=== PATIENT | male | born 1985 | race Two or more races ===

== ENCOUNTER 2021-12-31 15:00 | Outpatient (REF) | payer MEDICAID, SELFPAY ==
--- NOTE | ~2021-12-31 | US_ITS ---
EXAMINATION: US ABDOMEN LIMITED CLINICAL INFORMATION: Abnormal findings of blood chemistry. COMPARISON: None TECHNIQUE: Real-time imaging of the right upper quadrant abdominal viscera. FINDINGS: PANCREAS: There is a hypoechoic avascular area of the tail which measures 3.7 x 3.0 x 3.6 cm. Question mass versus bowel loops. LIVER: Normal. The liver is normal in size. The liver contour is normal. Parenchymal echogenicity is normal. No focal hepatic lesion. There is no intrahepatic biliary duct dilatation seen. GALLBLADDER: Gallbladder wall thickness is 0.2 cm. The gallbladder is physiologically distended without evidence of stones, sludge, polyps, wall thickening or pericholecystic fluid. COMMON BILE DUCT: Normal in caliber measuring 0.3 cm in diameter. RIGHT KIDNEY: There is mild pelvic fullness. No renal calculi or focal parenchymal lesions. The kidney measures 9.6 cm in maximum dimension. FREE FLUID: None US/US abdomen limited IMPRESSION: In the tail of the pancreas there is hypoechoic area either mass or loop of bowel. Visualized liver, gallbladder and CBD is unremarkable. There is mild pelvic fullness.
== END 2021-12-31 15:01 | disposition home or self-care (01) ==
LOC: HO.US 15:00
PROVIDERS: Visit Provider Internal Medicine
DX: R79.89 Other specified abnormal findings of blood chemistry (principal)
CPT/HCPCS: 76705

== ENCOUNTER 2022-01-11 08:45 | Emergency (ER) | payer MEDICAID, SELFPAY ==
[2022-01-11 08:50] VITALS: BP 103/70; PULSE 120; RESP 18; TEMP 37.3; O2SAT 100; BMI 21.7
[2022-01-11 09:06] LABS: Glucose, Whole Blood 242 mg/dL (60-115)
--- NOTE | 2022-01-11 09:23 | ED.SKABFB ---
HPI - Skin/Abscess/Foreign Bdy General Chief complaint: Skin/Abscess/Foreign Body Stated complaint: lump buy right ear Time Seen by Provider: 01/11/22 09:13 Source: patient Mode of arrival: ambulatory History of Present Illness HPI narrative: 36-year-old male with a past medical history of diabetes, substance abuse, presenting to the ED complaining of painful cyst behind right ear x1 week. Admits to associated right ear pain. Denies fever, chills, drainage from area, sore throat, oral swelling, difficulty swallowing, SOB, drainage behind right ear MD complaint: abscess/boil Onset (ago): week(s) Severity: moderate Related Data Previous Rx's Medication Instructions Recorded cephalexin 500 mg capsule 500 mg PO QID 7 Days #28 cap 01/11/22 doxycycline hyclate 100 mg tablet 100 mg PO BID 7 Days #14 tab 01/11/22 Allergies Allergy/AdvReac Type Severity Reaction Status Date / Time No Known Allergies Allergy Verified 01/11/22 08:50 Review of Systems Review of Systems: Constitutional: No Fever, No Chills ENT/Mouth: + Ear Pain, No Nasal Congestion, No sore throat, No Rhinorrhea, No Swallowing Difficulty Cardiovascular: No Chest Pain, No SOB Respiratory: No Cough, No Sputum Gastrointestinal: No Nausea, No Vomiting, No Diarrhea, No Constipation, No Abdominal pain Genitourinary:, No Dysuria, No Urinary Frequency, No Urgency, No Flank Pain Musculoskeletal: No joint pain, No Myalgias, No Joint Swelling Skin: + Skin Lesions, No rash Neuro: No Weakness, No Numbness Yes all other systems are reviewed and are negative [facility] Past Medical History Attestation statement: The following information was validated with the patient. Medical History Diabetes Substance abuse Social History Social History Advance Directives: No Physical Exam Vital Signs: Vital Signs: Last Vital Signs Temp 99.1 F 01/11/22 08:50 Pulse 120 H 01/11/22 08:50 Resp 18 01/11/22 08:50 BP 103/70 01/11/22 08:50 Pulse Ox 100 01/11/22 08:50 BMI result Body Mass Index 21.7 Const: General: cooperative, healthy appearing and no acute distress Orientation/consciousness: patient oriented x3 Limitations: no limitations HENMT: Other: +Hard indurated cyst behind right ear. No fluctuance, no pointing, no drainage. Slight overlying erythema and warmth. No streaking Head: Yes normal to inspection Ears: hearing grossly normal bilaterally and TM's normal bilaterally General nose exam: Normal external nose present Face and sinus: Yes normal facial exam Mouth: Normal oral and palatal mucosa present Throat: Yes posterior oropharynx normal, Yes tonsils normal, Yes uvula midline, No peritonsillar mass and No uvular edema Eyes: General: appearance normal, both eyes and all related structures EOM: EOMs intact bilaterally Neck: Neck: Yes normal visual inspection, Yes no meningeal signs, Yes trachea midline and Yes supple Resp: Effort & Inspection: normal respiratory effort and no respiratory distress Cardio: Rate: regular rate and tachycardic Heart sounds: S1 normal heart sound present and S2 normal heart sound present Skin: Rashes: no rashes Wounds: no wounds Neuro: General: patient oriented x3 and no meningeal signs Gait exam (Neuro): Normal gait present Extrem: General: Yes normal to inspection Course Course Course Narrative: POC 242 MDM - Skin/Abscess/Foreign Bdy MDM Narrative Medical decision making narrative: 36-year-old male with a past medical history of diabetes, substance abuse, presenting to the ED complaining of painful cyst behind right ear x1 week. On exam initially tachycardic low-grade temp 99.1 degrees, hard indurated cyst behind right ear without fluctuance, mild overlying erythema and warmth. Concern for indurated abscess with overlying cellulitis. Area not drainable at this time. Had lengthy discussion with patient to apply warm compresses 2-3x a day, take antibiotics and return for re-evaluation in 2-3 days, and hopefully at that time can perform I&D Differential Diagnosis Differential diagnosis: Likely abscess of skin or subcutaneous tissue and cellulitis Medical Records Attestation: I reviewed the patient's medical records. Lab Data Attestation: I reviewed the patient's lab results. Labs: Lab Results 01/11/22 Range/Units 09:00 POC Glucose 242 H (60-115) mg/dL Discharge Plan Discharge Clinical Impression: Boil Patient Disposition: Home, Self-Care Instructions: Abscess (ED), Abscess Follow-up (ED) Additional Instructions: your cyst is very hard today but likely will need to be drained in a couple days, APPLY WARM COMPRESSES AT HOME KEFLEX AND DOXYCYCLINE ARE ANTIBIOTICS PLEASE TAKE PRESCRIBED Take Tylenol and Motrin for pain and swelling Do not pick at the area or poke the area you should be re-evaluated in 2-3 days If area turns red, starts to drain, turns to a issa, or grows please return to the ED sooner Prescriptions: New cephalexin 500 mg capsule 500 mg PO QID 7 Days Qty: 28 0RF doxycycline hyclate 100 mg tablet 100 mg PO BID 7 Days Qty: 14 0RF Referrals: Physician,Unknown J [Primary Care Provider] - 3 days (For re-evaluation)
[2022-01-11 09:30] VITALS: PULSE 104; RESP 16; O2SAT 100
== END 2022-01-11 09:38 | disposition home or self-care (01) ==
PROVIDERS: Emergency Provider Emergency Medicine
DX: Q18.1 Preauricular sinus and cyst (principal); L02.02 Furuncle of face; E11.9 Type 2 diabetes mellitus without complications; Z79.899 Other long term (current) drug therapy
CPT/HCPCS: 82947; 99284

== ENCOUNTER 2022-01-11 20:20 | Emergency (ER) | payer MEDICAID, SELFPAY ==
[2022-01-11 20:30] VITALS: BP 124/91; BP 140/76; PULSE 114; PULSE 124; RESP 20; TEMP 37.1; O2SAT 100; O2SAT 97; BMI 21.6
--- NOTE | 2022-01-11 21:11 | ED_ITS ---
HPI - Skin/Abscess/Foreign Bdy General Chief complaint: Skin/Abscess/Foreign Body Stated complaint: abscess in ear Time Seen by Provider: 01/11/22 20:53 History of Present Illness HPI narrative: Patient is a 36 old male presents to the emergency department earlier today. Patient had an abscess to the right neck just inferior to the ear. Patient claims he was unable to obtain his antibiotic. There is no fever no chills. Complaining of worsening pain. Patient from home. Lives in a retirement. No fever no chills no systemic complaints Related Data Previous Rx's Medication Instructions Recorded cephalexin 500 mg capsule 500 mg PO QID 7 Days #28 cap 01/11/22 doxycycline hyclate 100 mg tablet 100 mg PO BID 7 Days #14 tab 01/11/22 Allergies Allergy/AdvReac Type Severity Reaction Status Date / Time No Known Allergies Allergy Verified 01/11/22 08:50 Review of Systems Review of Systems: Positive neck pain No fever no chills No cough no congestion no upper respiratory symptoms Positive neck mass Yes all other systems are reviewed and are negative [facility] Past Medical History Attestation statement: The following information was validated with the patient. Medical History Diabetes Substance abuse Social History Social History Advance Directives: No Advance Directives Information Provided: No Physical Exam Vital Signs: Vital Signs: Last Vital Signs Temp 98.8 F 01/11/22 20:30 Pulse 124 H 01/11/22 20:30 Resp 20 01/11/22 20:30 BP 124/91 H 01/11/22 20:30 Pulse Ox 97 01/11/22 20:30 BMI result Body Mass Index 21.6 Appearance: Alert. Oriented X3. No acute distress. Eyes: Pupils equal, round and reactive to light. ENT: Pharynx normal. Positive fluctuant mass just inferior to the right ear. Proximally 5 cm x 2 cm in size. Not warm to touch. Trachea is midline posterior pharynx is normal there is no mass or tenderness Neck: Normal inspection. Neck supple. No lymph nodes noted. No crepitus CVS: Normal heart rate and rhythm. Pulses normal. Normal S1 and S2 Respiratory: No respiratory distress. Breath sounds normal. No Wheezing. No rales Abdomen: Soft and nontender. No rigidity. No distention. good BS x4 Skin: Skin warm and dry. Normal skin color. Normal skin turgor. Extremities: No lower extremity edema. Neurovascular intact to all extremities. No Lacerations. No Rash Neuro: Oriented X 3. No motor deficit. No sensory deficit. Moving all extermities. No slurred speech MDM - Skin/Abscess/Foreign Bdy MDM Narrative Medical decision making narrative: Positive abscess will go ahead and I and D. patient was prescribed Keflex and doxy earlier. Will have patient continue his medications. Another dose will be given here in the emergency department. Patient is currently in stable condition. Procedures Abscess I/D Site: neck Side (if applicable): right Local Anesthetic: lidocaine 1% Amount of anesthesia used (mL): 5 Technique: incised with blade Amount of fluid expressed (mL): 5 Sent for culture/gram staining?: Yes Irrigation: Yes Packing used?: iodoform Discharge Plan Discharge Clinical Impression: Boil Patient Disposition: Home, Self-Care Instructions: Abscess Follow-up (ED), Abscess Incision and Drainage (DC) Additional Instructions: Follow-up in 2 days for packing Prescriptions: No Action cephalexin 500 mg capsule 500 mg PO QID 7 Days Qty: 28 0RF doxycycline hyclate 100 mg tablet 100 mg PO BID 7 Days Qty: 14 0RF Referrals: [facility] [Primary Care Provider] - 2 days Camille Mott MD [Emergency Provider] - 2 days Print Language: Nauruan
[2022-01-11] MEDS: Lidocaine HCl 1 % MPF 5 ML VIAL SUBCUT (21:19)
[2022-01-11] MEDS: cephALEXin 500 MG CAPSULE PO (21:46)
[2022-01-11 21:52] LABS: Glucose, Whole Blood 272 mg/dL (60-115)
== END 2022-01-11 22:19 | disposition home or self-care (01) ==
LOC: HO.ED 21:24
PROVIDERS: Emergency Provider Emergency Medicine Emergency Medical Services
DX: L02.11 Cutaneous abscess of neck (principal); Z79.899 Other long term (current) drug therapy
CPT/HCPCS: 10060; 82947; 87071; 87077; 87186; 87205; 99283

== ENCOUNTER 2022-01-14 08:55 | Emergency (ER) | payer MEDICAID, SELFPAY ==
[2022-01-14 08:56] VITALS: BP 107/76; PULSE 108; RESP 18; TEMP 37; O2SAT 100; BMI 21.7
--- NOTE | 2022-01-14 09:04 | ED.SKABFB ---
HPI - Skin/Abscess/Foreign Bdy General Chief complaint: Skin/Abscess/Foreign Body Stated complaint: wound check Time Seen by Provider: 01/14/22 09:03 Source: patient Mode of arrival: ambulatory Limitations: no limitations History of Present Illness HPI narrative: 36 y/o male presents to the ER for wound check. He was seen here on 01/11 for an abscess on his right neck that was I&D'd and he was discharged with doxycycline and cephalexin. He states 2 days ago he removed the packing that was placed. He denies any further drainage from the area. He states there is 1 area still that is a little bit hard, but it is not red or hot. He is using warm compresses to the area. He denies any fever or chills. He has been compliant with his antibiotics. MD complaint: abscess/boil Location: neck Severity: mild Quality: aching Pain Consistency: intermittent Relieving factors: none Exacerbating factors: palpation Associated symptoms: denies other symptoms Treatments prior to arrival: bandages and antibiotic Related Data Previous Rx's Medication Instructions Recorded cephalexin 500 mg capsule 500 mg PO QID 7 Days #28 cap 01/11/22 doxycycline hyclate 100 mg tablet 100 mg PO BID 7 Days #14 tab 01/11/22 Allergies Allergy/AdvReac Type Severity Reaction Status Date / Time No Known Allergies Allergy Verified 01/11/22 08:50 Review of Systems Review of Systems: Constitutional: No Fever, No Chills ENT/Mouth: No sore throat, No Swallowing Difficulty Cardiovascular: No Chest Pain, No SOB Gastrointestinal: No Nausea, No Vomiting Musculoskeletal: , No Myalgias Skin: + Skin Lesions, No rash Neuro: No Weakness, No Dizziness, No Headache Heme/Lymph: No Lymphadenopathy PMFSH Past Medical History Medical History Diabetes Substance abuse Social History Social History Advance Directives: No Advance Directives Information Provided: No Physical Exam Vital Signs: Vital Signs: Last Vital Signs Temp 98.6 F 01/14/22 08:56 Pulse 108 H 01/14/22 08:56 Resp 18 01/14/22 08:56 BP 107/76 01/14/22 08:56 Pulse Ox 100 01/14/22 08:56 BMI result Body Mass Index 21.7 Appearance: Alert. Oriented X3. No acute distress. HEENT: right lateral neck with a 1 cm incision just below the ear. there is small area of induration superiorly without any purulence drainage able to be expressed from the area. No erythema or warmth. Normal range of motion of the neck. normal TMs bilaterally. No cervical lymphadenopathy. CVS: Normal heart rate and rhythm. Pulses normal. Respiratory: No respiratory distress. Skin: Skin warm and dry. Normal skin color. Normal skin turgor. No rashes. Extremities: atraumatic x4, normal inspection, normal ROM Neuro: Oriented X 3. Grossly normal, nonfocal Course Course Course Narrative: 6-year-old male presenting to the ER for wound check. He has an abscess to the right neck just below the ear. He took out the packing. Wound has closed. It seems to be healing appropriately. There is no fluctuance, erythema, warmth. Minimal tenderness and some induration on exam but overall appears to be healing appropriately. he has Keflex and doxycycline previously prescribed that he is taking. We discussed warning signs to return to the emergency room. He is stable for discharge home. Discharge Plan Discharge Clinical Impression: Abscess of skin or subcutaneous tissue Patient Disposition: Home, Self-Care Instructions: Abscess Follow-up (ED) Additional Instructions: Your abscess is healing appropriately. Continue to take all of your previously prescribed antibiotics until they are all gone. Continue to use warm compresses to the area several times per day. If you notice increased swelling, redness, warmth or pain come back to the ER for further evaluation. Prescriptions: No Action cephalexin 500 mg capsule 500 mg PO QID 7 Days Qty: 28 0RF doxycycline hyclate 100 mg tablet 100 mg PO BID 7 Days Qty: 14 0RF
== END 2022-01-14 09:29 | disposition home or self-care (01) ==
PROVIDERS: Emergency Provider Emergency Medicine
DX: L02.11 Cutaneous abscess of neck (principal); Z79.899 Other long term (current) drug therapy
CPT/HCPCS: 99283

== ENCOUNTER 2022-03-30 11:54 | Emergency (ER) | payer MEDICAID, SELFPAY ==
--- NOTE | 2022-03-30 | ECG_ITS ---
Test Reason : HIGH SUGAR Blood Pressure : / mmHG Vent. Rate : 119 BPM Atrial Rate : 119 BPM P-R Int : 118 ms QRS Dur : 080 ms QT Int : 304 ms P-R-T Axes : 070 075 051 degrees QTc Int : 427 ms Sinus tachycardia Nonspecific ST abnormality Abnormal ECG No previous ECGs available Referred By: Generic ED Physician Electronically Signed By:SUKHDEV MENDOZA MD
[2022-03-30 12:28] VITALS: BP 105/79; PULSE 128; RESP 18; TEMP 36.5; O2SAT 97; BMI 20.9
[2022-03-30 12:52] LABS: Glucose, Whole Blood 555 mg/dL (60-115)
[2022-03-30 13:01] LABS: MANUAL DIFF FLAG NO
[2022-03-30 13:04] LABS: Basophils Percent Auto 0.3 % (0-2); Hematocrit 36.2 % (42.0-52.0); Hemoglobin 12.2 g/dl (14.0-18.0); Imm Gran Abs Auto 0.02 X10*3/uL (0.00-0.03); Imm Gran Pct Auto 0.3 % (0.0-0.4); Lymphocytes Absolute Auto 1.5 X10*3/uL (1.2-4.9); Lymphocytes Percent Auto 23.2 % (20-40); Mean Corpuscular HGB Conc 33.7 g/dl (31.0-36.0); Mean Corpuscular Hemoglobin 26.9 pg (27.0-33.0); Mean Corpuscular Volume 79.7 fL (80.0-98.0); Mean Platelet Volume 9.8 fL (9.4-12.4); Monocytes Absolute Auto 0.3 X10*3/uL (0.1-1.2); Monocytes Percent Auto 4.7 % (2-11); Neutrophils Absolute Auto 4.7 x10*3/uL (2.0-8.3); Neutrophils Percent Auto 71.5 % (45-73); Platelet Count 267 X10*3/uL (160-400); Red Blood Count 4.54 X10*6/uL (4.60-5.80); Red Cell Distribution Width 12.9 % (11.0-16.0); White Blood Count 6.6 X10*3/uL (4.8-10.8)
[2022-03-30 13:14] LABS: Lactic Acid 1.6 mmol/L (0.5-2.0)
[2022-03-30 13:24] LABS: Anion Gap 16 (12-20); Blood Urea Nitrogen 21 mg/dL (9-16); Calcium 10.7 mg/dL (8.4-10.2); Carbon Dioxide 30 mmol/L (22-29); Chloride 88 mmol/L (96-108); Creatinine Clr Calc Pharmacy 52.1; Estimated Glomerular Filt Rate 48; Glucose Random 640 mg/dL (60-115); Potassium 4.6 mmol/L (3.3-5.1); Sodium 129 mmol/L (135-145)
--- NOTE | 2022-03-30 13:50 | ED_ITS ---
HPI - General Adult General Chief complaint: General Medical Stated complaint: High Blood Sugar ? Infection on Neck Time Seen by Provider: 03/30/22 13:41 Source: patient Mode of arrival: ambulatory Limitations: no limitations History of Present Illness MD complaint: elevated blood sugar Onset (ago): day(s) (2) Severity: moderate Pain Consistency: constant Relieving factors: none Exacerbating factors: eating Associated symptoms: malaise and other (high BS in 500s, peeing more, did drink a sugary juice prior to his and it caused some mild diarrhea that resolved, he also ran out of lantus 30 units 2 days ago) Treatments prior to arrival: other (metformin BID) Related Data Previous Rx's Medication Instructions Recorded cephalexin 500 mg capsule 500 mg PO QID 7 Days #28 cap 01/11/22 doxycycline hyclate 100 mg tablet 100 mg PO BID 7 Days #14 tab 01/11/22 insulin glargine 100 unit/mL (3 30 unit (0.3 mL) SUBCUT QAM #15 ml 03/30/22 mL) subcutaneous pen (Lantus Solostar U-100 Insulin) pen needle, diabetic 32 gauge x #50 ea 03/30/2232 (Pentips) Allergies Allergy/AdvReac Type Severity Reaction Status Date / Time No Known Allergies Allergy Verified 01/11/22 08:50 Review of Systems Review of Systems: Constitutional : No Weight loss, No Fever, No Chills, pos Fatigue, pos Malaise ENT/Mouth : No sore throat, No Rhinorrhea Eyes: No Eye Pain, No Swelling, No Redness Cardiovascular : No Chest Pain, No SOB, No Dyspnea on Exertion, No Orthopnea, No Edema, No Palpitations Respiratory : No Cough, No Sputum, No Wheezing Gastrointestinal : pos Nausea, No Vomiting, No Diarrhea, No Constipation, No abdominal Pain, No Hematochezia, No Melena Genitourinary : No Dysuria, No Urinary Frequency, No Hematuria, Musculoskeletal : No joint pain, No Myalgias, No Joint Swelling Skin : No Skin Lesions, No rash Neuro : No Weakness, No Numbness, No Dizziness, No Headache Psych : No Anxiety/Panic, No Depression Heme/Lymph: No Bruising, No Bleeding,No Lymphadenopathy Endocrine : pos Polyuria, pos Polydipsia All other systems reviewed and are negative [facility] Past Medical History Attestation statement: The following information was validated with the patient. Medical History Diabetes MRSA cellulitis Substance abuse Social History Social History (Updated 03/30/22 @ 13:50 by Liberty Hernandes DO) Patient Tobacco Use Status: Current someday Tobacco user Use of substances other than those prescribed or required for medical reasons: Yes Advance Directives: No Advance Directives Information Provided: No Physical Exam ED Vital Signs: Vital Signs - 24 hr 03/30/22 12:28 03/30/22 15:27 Temperature 97.7 F 98.4 F Pulse Rate 128 H 114 H Respiratory Rate 18 20 Blood Pressure 105/79 114/80 Pulse Oximetry 97 99 BMI result Body Mass Index 20.9 Appearance: Alert. Oriented X3. No acute distress. Eyes: Pupils equal, round and reactive to light. ENT: Pharynx mildly dry MM Neck: Normal inspection. Neck supple. CVS: Normal heart rate and rhythm. Pulses normal. Respiratory: No respiratory distress. Breath sounds normal. Abdomen: Soft and non-tender. Skin: Skin warm and dry. Normal skin color. Normal skin turgor. Extremities: No lower extremity edema. No calf ttp Neuro: Oriented X 3. No motor deficit. No sensory deficit. Course Course Course Narrative: plan to recheck Cr after 2L of IVF - Rx sent to [facility] pharmacy for patient signed out to Dr. Mott pending repeat blood sugar Cr 1.43 - will hydrat 2L still this was done before - can follow up with PCP Medical Decision Making MDM Narrative Medical decision making narrative: 36 yo male with hx of DM on metformin and lantus 30 units per day, ran out of insulin 2 days ago and drank some juice that caused diarrhea, mild DENNIS - will give 2L of IVF and IV insulin, suspect he will turn around no signs of DKA. Anticpate DC home with supportive care. Lab Data Result diagrams: 03/30/22 12:51 03/30/22 15:30 Labs: Lab Results 03/30/22 03/30/22 03/30/22 Range/Units 12:43 12:51 12:51 WBC 6.6 (4.8-10.8) X10*3/uL RBC 4.54 L (4.60-5.80) X10*6/uL Hgb 12.2 L (14.0-18.0) g/dl Hct 36.2 L (42.0-52.0) % MCV 79.7 L (80.0-98.0) fL MCH 26.9 L (27.0-33.0) pg MCHC 33.7 (31.0-36.0) g/dl RDW 12.9 (11.0-16.0) % Plt Count 267 (160-400) X10*3/uL MPV 9.8 (9.4-12.4) fL Immature Gran % (Auto) 0.3 (0.0-0.4) % Neut % (Auto) 71.5 (45-73) % Lymph % (Auto) 23.2 (20-40) % [place] % (Auto) 4.7 (2-11) % Eos % (Auto) 0.0 (0-4) % Baso % (Auto) 0.3 (0-2) % Lymph # (Auto) 1.5 (1.2-4.9) X10*3/uL [place] # (Auto) 0.3 (0.1-1.2) X10*3/uL Eos # (Auto) 0.0 (0.0-0.4) X10*3/uL Baso # (Auto) 0.0 (0.0-0.2) X10*3/uL Abs Immat Gran (auto) 0.02 (0.00-0.03) X10*3/uL Absolute Neuts (auto) 4.7 (2.0-8.3) x10*3/uL Absolute Nucleated RBC 0.000 (0.0-0.012) X10*3/uL Nucleated RBC % (auto) 0.0 (0.0-0.2) /100WBC VBG pH (7.32-7.43) VBG pCO2 mmHg VBG pO2 mmHg VBG HCO3 (22-26) mmol/L VBG O2 Saturation % VBG Base Excess mmol/L Sodium 129 L (135-145) mmol/L Potassium 4.6 (3.3-5.1) mmol/L Chloride 88 L (96-108) mmol/L Carbon Dioxide 30 H (22-29) mmol/L Anion Gap 16 (12-20) BUN 21 H (9-16) mg/dL Creatinine 1.65 H (0.5-1.4) mg/dL Estim Creat Clear Calc 52.1 Estimated GFR 48 POC Glucose 555 H* (60-115) mg/dL Random Glucose 640 H* (60-115) mg/dL Lactic Acid (0.5-2.0) mmol/L Calcium 10.7 H (8.4-10.2) mg/dL Acetone, Qual (Negative) 03/30/22 03/30/22 03/30/22 Range/Units 12:51 14:46 14:49 WBC (4.8-10.8) X10*3/uL RBC (4.60-5.80) X10*6/uL Hgb (14.0-18.0) g/dl Hct (42.0-52.0) % MCV (80.0-98.0) fL MCH (27.0-33.0) pg MCHC (31.0-36.0) g/dl RDW (11.0-16.0) % Plt Count (160-400) X10*3/uL MPV (9.4-12.4) fL Immature Gran % (Auto) (0.0-0.4) % Neut % (Auto) (45-73) % Lymph % (Auto) (20-40) % [place] % (Auto) (2-11) % Eos % (Auto) (0-4) % Baso % (Auto) (0-2) % Lymph # (Auto) (1.2-4.9) X10*3/uL [place] # (Auto) (0.1-1.2) X10*3/uL Eos # (Auto) (0.0-0.4) X10*3/uL Baso # (Auto) (0.0-0.2) X10*3/uL Abs Immat Gran (auto) (0.00-0.03) X10*3/uL Absolute Neuts (auto) (2.0-8.3) x10*3/uL Absolute Nucleated RBC (0.0-0.012) X10*3/uL Nucleated RBC % (auto) (0.0-0.2) /100WBC VBG pH 7.43 (7.32-7.43) VBG pCO2 55 mmHg VBG pO2 45 mmHg VBG HCO3 36 H (22-26) mmol/L VBG O2 Saturation 69.0 % VBG Base Excess 10.4 mmol/L Sodium (135-145) mmol/L Potassium (3.3-5.1) mmol/L Chloride (96-108) mmol/L Carbon Dioxide (22-29) mmol/L Anion Gap (12-20) BUN (9-16) mg/dL Creatinine (0.5-1.4) mg/dL Estim Creat Clear Calc Estimated GFR POC Glucose (60-115) mg/dL Random Glucose (60-115) mg/dL Lactic Acid 1.6 (0.5-2.0) mmol/L Calcium (8.4-10.2) mg/dL Acetone, Qual Negative (Negative) 03/30/ Range/Units 15:30 WBC (4.8-10.8) X10*3/uL RBC (4.60-5.80) X10*6/uL Hgb (14.0-18.0) g/dl Hct (42.0-52.0) % MCV (80.0-98.0) fL MCH (27.0-33.0) pg MCHC (31.0-36.0) g/dl RDW (11.0-16.0) % Plt Count (160-400) X10*3/uL MPV (9.4-12.4) fL Immature Gran % (Auto) (0.0-0.4) % Neut % (Auto) (45-73) % Lymph % (Auto) (20-40) % [place] % (Auto) (2-11) % Eos % (Auto) (0-4) % Baso % (Auto) (0-2) % Lymph # (Auto) (1.2-4.9) X10*3/uL [place] # (Auto) (0.1-1.2) X10*3/uL Eos # (Auto) (0.0-0.4) X10*3/uL Baso # (Auto) (0.0-0.2) X10*3/uL Abs Immat Gran (auto) (0.00-0.03) X10*3/uL Absolute Neuts (auto) (2.0-8.3) x10*3/uL Absolute Nucleated RBC (0.0-0.012) X10*3/uL Nucleated RBC % (auto) (0.0-0.2) /100WBC VBG pH (7.32-7.43) VBG pCO2 mmHg VBG pO2 mmHg VBG HCO3 (22-26) mmol/L VBG O2 Saturation % VBG Base Excess mmol/L Sodium (135-145) mmol/L Potassium (3.3-5.1) mmol/L Chloride (96-108) mmol/L Carbon Dioxide (22-29) mmol/L Anion Gap (12-20) BUN (9-16) mg/dL Creatinine 1.43 H (0.5-1.4) mg/dL Estim Creat Clear Calc 60.1 Estimated GFR 56 POC Glucose (60-115) mg/dL Random Glucose (60-115) mg/dL Lactic Acid (0.5-2.0) mmol/L Calcium (8.4-10.2) mg/dL Acetone, Qual (Negative) Discharge Plan Discharge Clinical Impression: Acute hyperglycemia, Acute dehydration Patient Disposition: Still a Patient Instructions: Dehydration (ED), Diabetic Hyperglycemia (ED) Additional Instructions: return to ED for any worsening symptoms or concerns repeat kidney function with primary care doctor in 2 days repetir la funci?n renal con el m?dico de atenci?n primaria en 2 d?as Prescriptions: New Lantus Solostar U-100 Insulin 100 unit/mL (3 mL) insulin pen 30 unit subcut QAM Qty: 15 1RF (DME) pen needle, diabetic [Pentips] 32 gauge x 5/32 needle See Rx Instructions .Route Qty: 50 2RF Rx Instructions: use once daily with lantus pen No Action cephalexin 500 mg capsule 500 mg PO QID 7 Days Qty: 28 0RF doxycycline hyclate 100 mg tablet 100 mg PO BID 7 Days Qty: 14 0RF Referrals: [facility] [Primary Care Provider] - 2 days Print Language: Slovenian
[2022-03-30 14:54] LABS: VBG Base Excess 10.4 mmol/L; VBG HCO3 36 mmol/L (22-26); VBG pCO2 55 mmHg; VBG pH 7.43 (7.32-7.43); VBG pO2 45 mmHg
[2022-03-30] MEDS: Insulin Regular, Human 100 UNIT/ML 3 ML VIAL 10 UNIT IVPUSH (14:55)
[2022-03-30 14:56] LABS: Venous Blood Gas Refer to POC result
[2022-03-30] MEDS: 0.9 % Sodium Chloride 1,000 ML 999 ML IVCONT ×2 (14:56→17:16)
[2022-03-30 15:03] LABS: Acetone, serum QL Negative (Negative)
[2022-03-30 15:27] VITALS: BP 114/80; PULSE 114; RESP 20; TEMP 36.9; O2SAT 99
[2022-03-30 15:45] LABS: Creatinine Clr Calc Pharmacy 60.1; Estimated Glomerular Filt Rate 56
--- NOTE | 2022-03-30 17:19 | ED_ITS ---
HPI - General Adult General Chief complaint: General Medical Stated complaint: High Blood Sugar ? Infection on Neck Time Seen by Provider: 03/30/22 13:41 Source: patient Mode of arrival: ambulatory Limitations: no limitations History of Present Illness Relieving factors: none Exacerbating factors: eating Associated symptoms: malaise and other (high BS in 500s, peeing more, did drink a sugary juice prior to his and it caused some mild diarrhea that resolved, he also ran out of lantus 30 units 2 days ago) Treatments prior to arrival: other (metformin BID) Related Data Previous Rx's Medication Instructions Recorded cephalexin 500 mg capsule 500 mg PO QID 7 Days #28 cap 01/11/22 doxycycline hyclate 100 mg tablet 100 mg PO BID 7 Days #14 tab 01/11/22 clindamycin HCl 300 mg capsule 300 mg PO Q6H #20 cap 03/30/22 (Cleocin HCl) insulin glargine 100 unit/mL (3 30 unit (0.3 mL) SUBCUT QAM #15 ml 03/30/22 mL) subcutaneous pen (Lantus Solostar U-100 Insulin) pen needle, diabetic 32 gauge x #50 ea 03/30/22/32 (Pentips) Allergies Allergy/AdvReac Type Severity Reaction Status Date / Time No Known Allergies Allergy Verified 01/11/22 08:50 [facility] Past Medical History Medical History Diabetes MRSA cellulitis Substance abuse Social History Social History (Updated 03/30/22 @ 13:50 by Liberty Hernandes DO) Patient Tobacco Use Status: Current someday Tobacco user Use of substances other than those prescribed or required for medical reasons: Yes Advance Directives: No Advance Directives Information Provided: No Physical Exam ED Vital Signs: Vital Signs - 24 hr 03/30/22 12:28 03/30/22 15:27 Temperature 97.7 F 98.4 F Pulse Rate 128 H 114 H Respiratory Rate 18 20 Blood Pressure 105/79 114/80 Pulse Oximetry 97 99 BMI result Body Mass Index 20.9 Medical Decision Making MDM Narrative Medical decision making narrative: Patient's sugar down to below 200. Well-appearing no distress. Scripts given. In stable condition with discharge home. Patient now complained that he had a lesion in his neck. Looks like there is an area of acute cellulitis. Will start patient on clindamycin for MRSA coverage. Patient is to be discharged home. Clindamycin 300 4 times a day was prescribed for 5 days. Lab Data Result diagrams: 03/30/22 12:51 03/30/22 15:30 Labs: Lab Results 03/30/22 03/30/22 03/30/22 Range/Units 12:43 12:51 12:51 WBC 6.6 (4.8-10.8) X10*3/uL RBC 4.54 L (4.60-5.80) X10*6/uL Hgb 12.2 L (14.0-18.0) g/dl Hct 36.2 L (42.0-52.0) % MCV 79.7 L (80.0-98.0) fL MCH 26.9 L (27.0-33.0) pg MCHC 33.7 (31.0-36.0) g/dl RDW 12.9 (11.0-16.0) % Plt Count 267 (160-400) X10*3/uL MPV 9.8 (9.4-12.4) fL Immature Gran % (Auto) 0.3 (0.0-0.4) % Neut % (Auto) 71.5 (45-73) % Lymph % (Auto) 23.2 (20-40) % Piute % (Auto) 4.7 (2-11) % Eos % (Auto) 0.0 (0-4) % Baso % (Auto) 0.3 (0-2) % Lymph # (Auto) 1.5 (1.2-4.9) X10*3/uL Piute # (Auto) 0.3 (0.1-1.2) X10*3/uL Eos # (Auto) 0.0 (0.0-0.4) X10*3/uL Baso # (Auto) 0.0 (0.0-0.2) X10*3/uL Abs Immat Gran (auto) 0.02 (0.00-0.03) X10*3/uL Absolute Neuts (auto) 4.7 (2.0-8.3) x10*3/uL Absolute Nucleated RBC 0.000 (0.0-0.012) X10*3/uL Nucleated RBC % (auto) 0.0 (0.0-0.2) /100WBC VBG pH (7.32-7.43) VBG pCO2 mmHg VBG pO2 mmHg VBG HCO3 (22-26) mmol/L VBG O2 Saturation % VBG Base Excess mmol/L Sodium 129 L (135-145) mmol/L Potassium 4.6 (3.3-5.1) mmol/L Chloride 88 L (96-108) mmol/L Carbon Dioxide 30 H (22-29) mmol/L Anion Gap 16 (12-20) BUN 21 H (9-16) mg/dL Creatinine 1.65 H (0.5-1.4) mg/dL Estim Creat Clear Calc 52.1 Estimated GFR 48 POC Glucose 555 H* (60-115) mg/dL Random Glucose 640 H* (60-115) mg/dL Lactic Acid (0.5-2.0) mmol/L Calcium 10.7 H (8.4-10.2) mg/dL Acetone, Qual (Negative) 03/30/22 03/30/22 03/30/22 Range/Units 12:51 14:46 14:49 WBC (4.8-10.8) X10*3/uL RBC (4.60-5.80) X10*6/uL Hgb (14.0-18.0) g/dl Hct (42.0-52.0) % MCV (80.0-98.0) fL MCH (27.0-33.0) pg MCHC (31.0-36.0) g/dl RDW (11.0-16.0) % Plt Count (160-400) X10*3/uL MPV (9.4-12.4) fL Immature Gran % (Auto) (0.0-0.4) % Neut % (Auto) (45-73) % Lymph % (Auto) (20-40) % Piute % (Auto) (2-11) % Eos % (Auto) (0-4) % Baso % (Auto) (0-2) % Lymph # (Auto) (1.2-4.9) X10*3/uL Piute # (Auto) (0.1-1.2) X10*3/uL Eos # (Auto) (0.0-0.4) X10*3/uL Baso # (Auto) (0.0-0.2) X10*3/uL Abs Immat Gran (auto) (0.00-0.03) X10*3/uL Absolute Neuts (auto) (2.0-8.3) x10*3/uL Absolute Nucleated RBC (0.0-0.012) X10*3/uL Nucleated RBC % (auto) (0.0-0.2) /100WBC VBG pH 7.43 (7.32-7.43) VBG pCO2 55 mmHg VBG pO2 45 mmHg VBG HCO3 36 H (22-26) mmol/L VBG O2 Saturation 69.0 % VBG Base Excess 10.4 mmol/L Sodium (135-145) mmol/L Potassium (3.3-5.1) mmol/L Chloride (96-108) mmol/L Carbon Dioxide (22-29) mmol/L Anion Gap (12-20) BUN (9-16) mg/dL Creatinine (0.5-1.4) mg/dL Estim Creat Clear Calc Estimated GFR POC Glucose (60-115) mg/dL Random Glucose (60-115) mg/dL Lactic Acid 1.6 (0.5-2.0) mmol/L Calcium (8.4-10.2) mg/dL Acetone, Qual Negative (Negative) 03/30/22 Range/Units 15:30 WBC (4.8-10.8) X10*3/uL RBC (4.60-5.80) X10*6/uL Hgb (14.0-18.0) g/dl Hct (42.0-52.0) % MCV (80.0-98.0) fL MCH (27.0-33.0) pg MCHC (31.0-36.0) g/dl RDW (11.0-16.0) % Plt Count (160-400) X10*3/uL MPV (9.4-12.4) fL Immature Gran % (Auto) (0.0-0.4) % Neut % (Auto) (45-73) % Lymph % (Auto) (20-40) % Piute % (Auto) (2-11) % Eos % (Auto) (0-4) % Baso % (Auto) (0-2) % Lymph # (Auto) (1.2-4.9) X10*3/uL Piute # (Auto) (0.1-1.2) X10*3/uL Eos # (Auto) (0.0-0.4) X10*3/uL Baso # (Auto) (0.0-0.2) X10*3/uL Abs Immat Gran (auto) (0.00-0.03) X10*3/uL Absolute Neuts (auto) (2.0-8.3) x10*3/uL Absolute Nucleated RBC (0.0-0.012) X10*3/uL Nucleated RBC % (auto) (0.0-0.2) /100WBC VBG pH (7.32-7.43) VBG pCO2 mmHg VBG pO2 mmHg VBG HCO3 (22-26) mmol/L VBG O2 Saturation % VBG Base Excess mmol/L Sodium (135-145) mmol/L Potassium (3.3-5.1) mmol/L Chloride (96-108) mmol/L Carbon Dioxide (22-29) mmol/L Anion Gap (12-20) BUN (9-16) mg/dL Creatinine 1.43 H (0.5-1.4) mg/dL Estim Creat Clear Calc 60.1 Estimated GFR 56 POC Glucose (60-115) mg/dL Random Glucose (60-115) mg/dL Lactic Acid (0.5-2.0) mmol/L Calcium (8.4-10.2) mg/dL Acetone, Qual (Negative) Discharge Plan Discharge Clinical Impression: Acute hyperglycemia, Acute dehydration Patient Disposition: Home, Self-Care Instructions: Dehydration (ED), Diabetic Hyperglycemia (ED) Additional Instructions: return to ED for any worsening symptoms or concerns repeat kidney function with primary care doctor in 2 days repetir la funci?n renal con el m?dico de atenci?n primaria en 2 d?as Prescriptions: New Lantus Solostar U-100 Insulin 100 unit/mL (3 mL) insulin pen 30 unit subcut QAM Qty: 15 1RF (DME) pen needle, diabetic [Pentips] 32 gauge x 5/32 needle See Rx Instructions .Route Qty: 50 2RF Rx Instructions: use once daily with lantus pen clindamycin HCl [Cleocin HCl] 300 mg capsule 300 mg PO Q6H Qty: 20 0RF No Action cephalexin 500 mg capsule 500 mg PO QID 7 Days Qty: 28 0RF doxycycline hyclate 100 mg tablet 100 mg PO BID 7 Days Qty: 14 0RF Referrals: [place],[facility] [Primary Care Provider] - 2 days Interventions: ED Discharge Assessment Last Done: 03/30/22 17:28 Print Language: Namibian
[2022-03-30 19:58] LABS: Glucose, Whole Blood 162 mg/dL (60-115)
== END 2022-03-30 18:00 | disposition home or self-care (01) ==
PROVIDERS: Emergency Medicine; Emergency Provider Emergency Medicine Emergency Medical Services
DX: E86.0 Dehydration (principal); R73.9 Hyperglycemia, unspecified; Z79.899 Other long term (current) drug therapy; F17.200 Nicotine dependence, unspecified, uncomplicated; Z71.6 Tobacco abuse counseling
CPT/HCPCS: 36415; 80048; 82009; 82565; 82803; 82947; 83605; 85025; 93005; 96361; 96374; 99284

== ENCOUNTER 2022-04-23 14:14 | Outpatient (REF) | payer MEDICAID, SELFPAY ==
--- NOTE | ~2022-04-23 | MR_ITS ---
EXAMINATION: MR ABDOMEN WITHOUT AND WITH CONTRAST CLINICAL INFORMATION: Question mass in the pancreas COMPARISON: Previous abdominal ultrasound December 2021 TECHNIQUE: MR abdomen was performed without and with use of 6 mL intravenous Gadavist gadolinium contrast. Postcontrast images are performed in multiphase dynamic sequences. Imaging was performed in 3 planes. MRCP sequences were also performed. Exam is limited due to respiratory motion artifact. FINDINGS: LUNG BASES: The visualized lung bases are unremarkable. LIVER, GALLBLADDER, AND BILIARY TREE: The liver is normal in size, smooth in contour, and normal in signal. No focal hepatic lesion or biliary ductal dilatation is present. The gallbladder is unremarkable with no evidence of gallbladder wall thickening, or obvious pericholecystic inflammatory changes. PANCREAS: Unremarkable. No pancreatic mass. SPLEEN: Normal. ADRENAL GLANDS: Normal. KIDNEYS AND URETERS: The kidneys are normal in size, shape, and enhance symmetrically. There is a 1 cm left renal cyst. No hydronephrosis. No perinephric stranding. GASTROINTESTINAL TRACT: Stool throughout the colon questionable for constipation. No bowel obstruction. No ascites or fluid collection. ABDOMINAL WALL: No significant hernia is appreciated. LYMPH NODES: No lymphadenopathy. VASCULAR: Unremarkable. OSSEOUS STRUCTURES: Marrow signal normal. MR/MR abdomen wo/w con IMPRESSION: Limited exam due to motion artifact. No pancreatic mass. Left renal cyst.
== END 2022-04-23 14:15 | disposition home or self-care (01) ==
LOC: HO.MRI 14:14
PROVIDERS: Visit Provider Internal Medicine
DX: K86.89 Other specified diseases of pancreas (principal)
CPT/HCPCS: 74183; A9585

== ENCOUNTER → 2022-07-16 11:05 | Outpatient (BNVA) | payer MEDICAID, SELFPAY | PROVIDERS: PCP Internal Medicine; Visit Provider Internal Medicine Endocrinology, Diabetes & Metabolism | DX: E11.9 Type 2 diabetes mellitus without complications (principal); Z79.4 Long term (current) use of insulin | CPT/HCPCS: 82947; 83036; 99202 ==

== ENCOUNTER 2022-07-28 12:12 | Outpatient (REF) | payer MEDICAID, SELFPAY ==
[2022-07-28 14:38] LABS: Anion Gap 17 (12-20); Blood Urea Nitrogen 16 mg/dL (9-16); Calcium 10.1 mg/dL (8.4-10.2); Carbon Dioxide 32 mmol/L (22-29); Chloride 97 mmol/L (96-108); Cholesterol 184 mg/dL; Estimated Glomerular Filt Rate > 60; Glucose Random 128 mg/dL (60-115); HDL Cholesterol 47 mg/dL; LDL Cholesterol Calculated 123 mg/dl; Potassium 4.5 mmol/L (3.3-5.1); Sodium 141 mmol/L (135-145); Triglycerides 72 mg/dL
[2022-07-28 18:29] LABS: Microalbum/Creatinine Ratio Ur 10.9 ug/mg cr
[2022-08-01 18:56] LABS: Glutamic acid decarboxylase Ab <5 IU/mL (<5)
== END 2022-07-28 12:13 | disposition home or self-care (01) ==
LOC: HO.10HDL 12:12
PROVIDERS: Visit Provider Internal Medicine Endocrinology, Diabetes & Metabolism
DX: E11.9 Type 2 diabetes mellitus without complications (principal)
CPT/HCPCS: 36415; 80048; 80061; 82043; 86341; 99211

== ENCOUNTER → 2022-08-11 13:23 | Outpatient (BNVA) | payer MEDICAID, SELFPAY | PROVIDERS: PCP Internal Medicine; Visit Provider Registered Nurse Diabetes Educator | DX: E11.9 Type 2 diabetes mellitus without complications (principal) | CPT/HCPCS: 99211; 99499 ==

== ENCOUNTER → 2022-12-31 08:53 | Outpatient (BNVA) | payer MEDICAID, SELFPAY | PROVIDERS: PCP Internal Medicine; Visit Provider Internal Medicine Endocrinology, Diabetes & Metabolism | DX: E11.9 Type 2 diabetes mellitus without complications (principal); Z79.84 Long term (current) use of oral hypoglycemic drugs; Z79.4 Long term (current) use of insulin | CPT/HCPCS: 36415; 82947; 83036; 84681; 96372; 99212; J1815 ==

== ENCOUNTER 2022-12-31 10:26 | Outpatient (REF) | payer MEDICAID, SELFPAY ==
[2023-01-01 17:44] LABS: C Peptide 0.72 ng/mL (0.80-3.85)
== END 2022-12-31 10:27 | disposition home or self-care (01) ==
LOC: HO.10HDL 10:26
PROVIDERS: Visit Provider Internal Medicine Endocrinology, Diabetes & Metabolism
DX: E11.9 Type 2 diabetes mellitus without complications (principal)
CPT/HCPCS: 36415; 84681; 99212

== ENCOUNTER 2023-07-21 10:21 | Outpatient (REF) | payer MEDICAID, SELFPAY ==
--- NOTE | ~2023-07-21 | XR_ITS ---
EXAMINATION: XR FOOT, LEFT CLINICAL INFORMATION: Diabetic foot ulcer. COMPARISON: None available. TECHNIQUE: AP, lateral, and oblique views of the left foot. FINDINGS: Soft tissue defect along the plantar forefoot, consistent with reported diabetic foot ulcer measuring up to 3.1 cm in AP dimension. No associated calcification or radiopaque foreign body. No adjacent periosteal reaction or cortical erosion to suggest acute osteomyelitis. No acute fracture or dislocation. No significant joint space narrowing or marginal osteophytes. XR/XR foot LT min 3V IMPRESSION: Soft tissue defect along the plantar forefoot, consistent with reported diabetic foot ulcer. No evidence of acute osteomyelitis. Early osteomyelitis may be occult on plain radiographs and if there is clinical concern, bone scan or MRI without and with contrast could help further evaluate.
[2023-07-21 13:13] LABS: Alanine Aminotransferase 44 U/L (0-40); Albumin Level 3.9 g/dL (3.5-5.0); Alkaline Phosphatase 264 U/L (39-117); Anion Gap 14 (12-20); Aspartate Amino Transferase 42 U/L (5-37); Bilirubin Total 0.3 mg/dL (0.0-1.0); Blood Urea Nitrogen 12 mg/dL (9-16); Calcium 10.2 mg/dL (8.4-10.2); Carbon Dioxide 34 mmol/L (22-29); Chloride 98 mmol/L (96-108); Cholesterol 153 mg/dL (<200); Estimated Glomerular Filt Rate 58; Glucose Random 120 mg/dL (60-115); HDL Cholesterol 50 mg/dL (>40); LDL Cholesterol Calculated 88 mg/dL (<100); Potassium 4.5 mmol/L (3.3-5.1); Sodium 141 mmol/L (135-145); Total Protein 8.2 g/dL (6.5-8.0); Triglycerides 75 mg/dL (<150)
[2023-07-21 13:47] LABS: Microalbum/Creatinine Ratio Ur 128.8 ug/mg cr (<30)
[2023-07-22 09:01] LABS: HBS Num1 188.65 mIU/mL (0-7.99); HBc Num1 0.06 S/CO (0.00-0.79); HIV AB/AG Nonreactive (Nonreactive); HIV Num 1 0.06 S/CO (0.00-0.99); Hepatitis A Antibody IgM 0.18 Index (0-0.79); Hepatitis B Core Antibody Nonreactive (Nonreactive); Hepatitis B Surface Antigen Negative (Negative); ~HepC Num1 0.07 S/CO (0.00-0.79); ~Hepatitis A Antibody IgM Nonreactive (Nonreactive); ~Hepatitis B Surface Antibody REACTIVE (Nonreactive); ~Hepatitis C Antibody Nonreactive (Nonreactive)
[2023-07-23 08:03] LABS: Syphilis Screen Nonreactive (Nonreactive)
== END 2023-07-21 10:22 | disposition home or self-care (01) ==
LOC: HO.HHCL 10:21
PROVIDERS: Visit Provider Registered Nurse
DX: Z00.00 Encounter for general adult medical examination without abnormal findings (principal); E11.621 Type 2 diabetes mellitus with foot ulcer; E11.65 Type 2 diabetes mellitus with hyperglycemia; L97.529 Non-pressure chronic ulcer of other part of left foot with unspecified severity; Z79.4 Long term (current) use of insulin
CPT/HCPCS: 36415; 73630; 80053; 80061; 82043; 82570; 86704; 86706; 86709; 86780; 86803; 87340; 87389

== ENCOUNTER 2024-03-20 12:08 | Outpatient (REF) | payer OTHER, SELFPAY ==
--- NOTE | ~2024-03-20 | XR_ITS ---
EXAMINATION: XR FOOT, LEFT CLINICAL INFORMATION: Diabetic ulcer left foot COMPARISON: Left foot x-ray on 07/21/2023 TECHNIQUE: AP, lateral, and oblique views of the left foot. FINDINGS: BONES: There has been interval severe destruction and resorption of distal right metatarsals, distal shaft of right 2nd-5th metatarsals, proximal shaft and base of left first metatarsal proximal shafts of left second and third toes proximal phalanges. JOINTS: There is marked proximal subluxation of the remaining left first metatarsal shaft. SOFT TISSUE: Soft tissue is normal. No radiopaque foreign body or abnormal air collection is seen. XR/XR foot LT min 3V IMPRESSION: 1. Interval severe destruction and resorption of distal right metatarsals, distal shaft of right 2nd-5th metatarsals, proximal shaft and base of left first metatarsal proximal shafts of left second and third toes proximal phalanges. Findings are consistent with osteomyelitis, severe erosive arthritis or surgical excision and neuropathic joints. 2. Marked proximal subluxation of the remaining left first metatarsal shaft.
== END 2024-03-20 12:09 | disposition home or self-care (01) ==
LOC: HO.HHCX 12:08
PROVIDERS: Visit Provider Registered Nurse
DX: L97.522 Non-pressure chronic ulcer of other part of left foot with fat layer exposed (principal); E08.621 Diabetes mellitus due to underlying condition with foot ulcer
CPT/HCPCS: 73630

== ENCOUNTER 2024-03-21 09:19 | Outpatient (REF) | payer OTHER, SELFPAY ==
[2024-03-21 11:24] LABS: MANUAL DIFF FLAG NO
[2024-03-21 11:45] LABS: Basophils Absolute Auto 0.1 X10*3/uL (0.0-0.2); Basophils Percent Auto 0.7 % (0-2); Eosinophils Absolute Auto 0.1 X10*3/uL (0.0-0.4); Eosinophils Percent Auto 0.7 % (0-4); Hematocrit 39.8 % (42.0-52.0); Hemoglobin 12.4 g/dl (14.0-18.0); Imm Gran Abs Auto 0.02 X10*3/uL (0.00-0.03); Imm Gran Pct Auto 0.3 % (0.0-0.4); Lymphocytes Absolute Auto 1.8 X10*3/uL (1.2-4.9); Lymphocytes Percent Auto 26.2 % (20-40); Mean Corpuscular HGB Conc 31.2 g/dl (31.0-36.0); Mean Corpuscular Hemoglobin 23.8 pg (27.0-33.0); Mean Corpuscular Volume 76.4 fL (80.0-98.0); Mean Platelet Volume 10.4 fL (9.4-12.4); Monocytes Absolute Auto 0.3 X10*3/uL (0.1-1.2); Monocytes Percent Auto 4.2 % (2-11); Neutrophils Absolute Auto 4.7 x10*3/uL (2.0-8.3); Neutrophils Percent Auto 67.9 % (45-73); Platelet Count 304 X10*3/uL (160-400); Red Blood Count 5.21 X10*6/uL (4.60-5.80); Red Cell Distribution Width 15.7 % (11.0-16.0); White Blood Count 6.9 X10*3/uL (4.8-10.8)
[2024-03-21 12:06] LABS: Alanine Aminotransferase 40 U/L (0-40); Alkaline Phosphatase 470 U/L (39-117); Anion Gap 15 (12-20); Aspartate Amino Transferase 49 U/L (5-37); Bilirubin Total 0.2 mg/dL (0.0-1.0); Blood Urea Nitrogen 18 mg/dL (9-16); C Reactive Protein < 0.10 mg/dL (< or = 0.50); Carbon Dioxide 32 mmol/L (22-29); Chloride 102 mmol/L (96-108); Cholesterol 168 mg/dL (<200); Estimated Glomerular Filt Rate 44; Glucose Random 144 mg/dL (60-115); HDL Cholesterol 46 mg/dL (>40); LDL Cholesterol Calculated 101 mg/dL (<100); Potassium 3.7 mmol/L (3.3-5.1); Sodium 145 mmol/L (135-145); Total Protein 7.4 g/dL (6.5-8.0); Triglycerides 106 mg/dL (<150)
[2024-03-21 12:32] LABS: Erythrocyte Sedimentation Rate 20 MM/HR (0-15)
[2024-03-21 17:32] LABS: Creatinine Urine 129.74 mg/dL
[2024-03-22 08:21] LABS: HBS Num1 180.25 mIU/mL (0-7.99); HBsAGNum1 0.33 S/CO (0.00-0.99); Hepatitis A Antibody IgM 0.17 Index (0-0.79); Hepatitis B Core Antibody Nonreactive (Nonreactive); Hepatitis B Surface Antigen Negative (Negative); ~HepC Num1 0.11 S/CO (0.00-0.79); ~Hepatitis A Antibody IgM Nonreactive (Nonreactive); ~Hepatitis B Surface Antibody REACTIVE (Nonreactive); ~Hepatitis C Antibody Nonreactive (Nonreactive)
[2024-03-22 09:02] LABS: C Peptide 0.21 ng/mL (0.80-3.85)
[2024-04-03 03:19] LABS: Islet Cell Antibody Screen NEGATIVE (NEGATIVE)
== END 2024-03-21 09:20 | disposition home or self-care (01) ==
LOC: HO.HHCL 09:19
PROVIDERS: Visit Provider Registered Nurse
DX: E11.65 Type 2 diabetes mellitus with hyperglycemia (principal); Z79.4 Long term (current) use of insulin; L97.522 Non-pressure chronic ulcer of other part of left foot with fat layer exposed
CPT/HCPCS: 36415; 80053; 80061; 82043; 82570; 84681; 85025; 85652; 86140; 86341; 86704; 86706; 86709; 86803; 87340

== ENCOUNTER 2025-02-27 13:47 | Outpatient (REF) | payer OTHER, SELFPAY ==
--- OUTSIDE RECORDS SUMMARY | 2025-02-27 15:56 | XMS_ITS | Encounter Summary ---
Author Organization [employer] Address [address] [place] [address] Care Team Providers Care Manager Hardware Name Role Phone [facility] Primary Care Provider [phone] Gloria Garcia PharmD Unavailable Encounter Details Date Type Department Care Team (Late st Contact Info) Description 02/27/2025 Telephone [facility] [address], [place] [id number] [facility] [address] [place] [address] Social History Tobacco Use Types Packs/Day Years Used Date Smoking Tobacco: Every Day Cigarettes Passive Smoke Exposure: Current Smokeless Tobacco: Never Alcohol Use Standard Drinks/Week Comments Not Asked 0 (1 standard drink = 0.6 oz pur e alcohol) Alcohol Answer Date Recorded Frequency of Alcohol Consumption Not on file 03/20/2024 Average Number of Drinks Not on file 024 Frequency of Binge Drinking Not on file 03/02 Score 0 03/20/2024 Depression Answer Date Recorded Patient Health Questionnaire-9 Score 24 01/05/2025 Patient Health Questionnaire-9 Score 24 01/05/2025 Last PHQ-9: Questionnaire Data Not on file 0 01/05/2025 Housing Stability Answer Date Recorded What is your housing situation today? I have salma lemons 08/23/[address] you li ve. Do you have problems with any of the following? None of the above 08/23/2023 Food Insecurity Answer Date Recorded Within the past 12 months, y ou worried that your food would run out before you got money to buy more: Never True 08/23/2023 Within the past 12 months,th e food you bought just didn't last and you didn't have enough money to get more: Never True Transportation Answer Date Recorded In the past 12 months, has l ack of transportation kept you from medical appts, meetings, work or from getting things needed for daily living? No 08/23/2023 Utilities Answer Date Recorded In the past 12 months, has t he electric, gas, oil or water company threatened to shut off services in your home? No 08/23/2023 Depression Answer Date Recorded Patient Health Questionnaire-2 Score 6 01/05/2025 Internet Access Answer Date Recorded Internet Access Q1 Yes 01/05/2025 Internet Access Q2 Not on file 01/05/2025 Sex and Gender Information Value Date Recorded Sex Assigned at Male 08/31/2022 10:40 AM EDT Legal Sex Male 10:40 AM EDT Gender Identity Male 08/31/2022 10:40 AM EDT Sexual Orientation Choose not to disclose 2021 10:40 AM EDT documented as of this encounter Miscellaneous Notes * Telephone Encounter - Gladis Avelar MA - 02/27/2025 2:09 PM EDT Contacted pt in regards to nutrition referral, had to L[facility]. They expressed that if the pt is there they will have the pt give us a call back to schedule. LB documented in this encounter Plan of Treatment Upcoming Encounters Date Type Department Care Team (Late st Contact Info) Description 03/01/2025 3:00 PM EDT Medication Management [facility] [address] [place] [phone] Gloria Garcia, PharmD [address] [place] [address] 03/21/2025 10:30 AM EDT Office Visit [facility] [address] [place] [address] Chari De Los Santos, KARELY [address] [place] [address] documented as of this encounter Visit Diagnoses Not on filedocumented in this encounter Additional Health Concerns Assessment Noted Time PHQ-9 Depression Total Score: 24 025 1:54 PM EST documented as of this encounter Care Teams Manager Hardware Relationship Specialty Start Date End Date Chari De Los Santos FNP [address] [place] [address] PCP - General Family Medicine 09/22/22 Gloria Garcia PharmD [address] [place] [phone] Pharmacist Internal Medicine 02/12/25 documented as of this encounter
--- OUTSIDE RECORDS SUMMARY | 2025-02-27 15:56 | XMS_ITS | Clinical Summary ---
Author Organization [facility] Address [address] [place] [address] Care Team Providers Care Emergency Vehicle Operations Instructor Name Role Phone Nghia Velez Primary Care Provider [phone] Source Comments PLEASE NOTE, if this patient is a minor, it may be UNLAWFUL to discuss sensitive information that is contained in these records (such as FAMILY PLANNING, MENTAL HEALTH or SUBSTANCE ABUSE) with the minor patient's parent or other person without the patient's specific authorization.[facility] Allergies No known active allergies Medications gabapentin (NEURONTIN) 800 mg tablet Take 1 Tablet by mouth 3 (three) times daily 4 Active magnesium oxide (MAG-OX) 400 mg (241.3 mg magnesium) tablet Take 1 Tablet by mouth 3 (three) times daily 4 Active ibuprofen 600 mg tablet Take 1 Tablet by mouth 2 (two) times daily as needed for pain 4 Active FLUoxetine (PROZAC) 40 mg capsule Take 1 Capsule by mouth once daily 4 Active guanFACINE (TENEX) 1 mg tablet Take 1 Tablet by mouth nightly at bedtime 4 Active mirtazapine (REMERON) 15 mg tablet Take 1 Tablet by mouth nightly at bedtime 4 Active insulin glargine (LANTUS SOLOSTAR U-100 INSULIN) 100 unit/mL (3 mL) pen Inject 36 Units into the skin once daily 4 Active insulin lispro (HUMALOG KWIKPEN INSULIN) 100 unit/mL injection pen For use with sliding scale TID/AC. Inject 1-5 units SC per sliding scale based on blood sugar 4 Active pen needle, diabetic 32 gauge x 1/4 ndle 4 Active ARIPiprazole (ABILIFY) 15 mg tablet Take 1 Tablet by mouth once daily 30 Tablet 1 4 Active hydrOXYzine HCL (ATARAX) 50 mg tablet Take 1 Tablet by mouth 2 (two) times daily as needed for anxiety 60 Tablet 1 4 Active melatonin 5 mg tab Take 1 Tablet by mouth every evening 30 Tablet 1 4 Active metFORMIN (GLUCOPHAGE) 500 mg tablet Take 1 Tablet by mouth 2 (two) times daily with a meal 60 Tablet 2 4 Active pantoprazole (PROTONIX) 40 mg EC tablet Take 1 Tablet by mouth every morning before breakfast 30 Tablet 2 4 Active flash glucose sensor (FREESTYLE MISTY 2 SENSOR) kit 1 Each by miscellaneous route every 14 (fourteen) days 2 Kit 3 5 Active Active Problems Problem Noted Date Diagnosed Date Nonspecific low blood pressure reading 4 Assessment & Plan (10/26/2024 1:19 PM EST): Patient, was seen at the clinic with low Systolic Blood Pressure, x 1, and Heart rate was elevated. Denies shakiness, fatigue, lightheadedness, tingling and numbness of lips,tongue and cheek, Nausea or vomiting, pt has tachycardia,but not irregular heart beat. Patient is not anti hypertensive medication. Fluid was offered, and pt. Blood Pressure was rechecked with improved result. Patient was educated to increasing fluid intake, particularly water,slow position changes and the signs that requires immediate attention, since he is diabetic.. Patient verbalized understanding. Encounter for immunization 10/26/2024 Assessment & Plan (10/31/2024 9:48 AM EST): Patient denies allergy to rangel's yeast or previous reaction to Hep B vaccine. Vaccine Information Statement (VIS) provided and reviewed with patient. RN educated patient on most common side effects of vaccination with Heplisav including injection site pain, fatigue, and headache. Vaccine administered; no adverse effects noted at this time. Encouraged patient to return for second dose of vaccine in 1 month. Assessment & Plan (10/26/2024 1:42 PM EST): Pt received Moderna Covid19 vaccination today. Discussed benefits and risks of vaccination with patient. Patient denied any contraindication to vaccination including severe allergic reaction to previous dose of Covid vaccine or any of its components. Pt denied any conditions considered a precaution for vaccination with Moderna Covid19 Vaccine, including diagnosed non-severe allergy to a component of the Covid19 vaccine, non-severe immediate-onset allergic reaction to previous dose of the vaccine, moderate or severe acute illness with or without fever, history of myocarditis/pericarditis within 3 weeks of prior Covid19 vaccination, or multi system inflammatory disorder of adult or child). Educated patient on common side effects (pain/swelling at injection site, fatigue, headache, joint/body aches, fever), as well as signs of an adverse event that require immediate follow up (signs/sx of anaphylaxis and signs/sx of myocarditis: chest pain, shortness of breath, tachycardia). Pt tolerated injection well, no adverse events noted. Patient requests seasonal flu shot. Benefits and risks discussed with patient and patient stated understanding. Patient denies previous allergic reaction to vaccination. Denies allergy to eggs. Flu vaccine administered to patient, no adverse effects noted at this time. See detailed documentation above. Reviewed possible s/e, reviewed self care if pain at injection site. Reviewed reportable sx. Patient received VIS - see administration information. Medication management 10/26/2024 Assessment & Plan (10/31/2024 9:51 AM EST): Patient was seen for medication management: Reported compliance with current meds, denies experiencing any adverse side effects. Reported being in good spirit today. Pt was assisted with refill medication enterprise resource planner box,for one week. No medication requiring refill.Patient was educated on the importance of medication compliance, and to report any adverse effect.Patient verbalized understanding. Pt was reminded of PCP appointment this at 3:[address] [place] [address] with Nghia Velez. Assessment & Plan (10/26/2024 1:44 PM EST): Patient was seen for medication management: Reported compliance with current meds, denies experiencing any adverse side effects. Pt was assisted with medication enterprise resource planner box refill,for one week. No medication requiring refill today. Patient was educated on the importance of medication compliance, and to report any adverse effect, from medications. Patient verbalized understanding. Stimulant use disorder 10/23/2024 Assessment & Plan (11/02/2024 5:11 PM EST): [facility], currently sober from cocaine Dyslipidemia 10/23/2024 Cocaine abuse ([facility]) 10/23/2024 Nicotine dependence, unspecified, uncomplicated 04/21/2024 Assessment & Plan (10/23/2024 9:22 PM EST): Pt. counseled about his smoking, does not want to quit at this time. Risks of smoking reviewed with patient. Advised regarding various cessation methods. 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 ? MAT did not have that conversation at this time. Unsteadiness on feet 04/10/2024 Anxiety 04/16/2023 Depressive disorder 12/24/2021 Assessment & Plan (11/02/2024 5:10 PM EST): PHQ-9 Total Score (Auto Calculated) (!) 12 at 10/26/2024 9:44 AM KAYLEIGH 7 Score: 10/26/2024 9:44 AM KAYLEIGH-7 Total (!) 13 Meds bridged by RESIDENTIAL FIELD MANAGER Given BHOA intake info Type 2 diabetes mellitus ([facility]) 09/16/2021 Overview (11/02/2024): 01/07/2010: HbA1c 7.0 Assessment & Plan (11/02/2024 4:28 PM EST): Lab Results Component Value Date HGBA1C 14.8 (H) 10/23/2024 HGBA1C >14.8 (H) 09/12/2024 HGBA1C 14 (A) 03/20/2024 Quite uncontrolled, though currently with improved adherence to meds and moving to more supportive environment Will continue insulin/metformin regimen while labs collected Recheck next month Ref to endo, podiatry, ophtho Assessment & Plan (11/02/2024 11:20 AM EST): Patient is diabetics, with fluctuating blood sugar. fingerstick blood sugar today,was 376, administered 4 units of Humalog, per sliding scale. Patient reported that he had juice and coffee, for breakfast. Reported compliance with medication and sliding scale insulin. Denies signs excessive urination.Denies dry mouth wt loss or blurry vision.Was educated on increasing fluid intake, and monitor wt.Pt was educated on use of care home glucometer, and the sliding scale procedure, hand written for Pt.will continue training patient weekly. Patient verbalized understanding.Reminded Pt and care home staff of Pt's PCP appointment today at 3:30 pm. Assessment & Plan (10/26/2024 1:40 PM EST): Patient is diabetics, and fingerstick blood sugar check was 350, Patient reported that he had muffin for breakfast. Was encouraged to speak with the staff regarding being Diabetic, and to avoid sugary foods. Alf staff was also educated on this.Reported compliance with medication. Denies signs excessive urination, dry mouth or blurry vision.Was educated on increasing fluid intake, and monitor blood sugar three times a day, take required sliding scale, as was provided by Provider in House Hernán Rubi NP as follow: less than 200 No units, 250 to 300, give 2 units, 301 to 350 give 4 units ,351 to 400 give 6 units, 401 to 450 give 8 units. This sliding scale was written out and placed in Pt's medication bag for reference. Pt was given 4 units. Of lispro .Pt was educated on use of insulin sliding scale, care home glucometer, until sees PCP on 11/02/24. and will continue to train patient weekly. Patient verbalized understanding. Assessment & Plan (10/24/2024 2:47 PM EST): Patient is diabetics, and fingerstick blood sugar check was Hi , 3 glasses of water provided, took 2 cups.Patient reported that he had juice past 20 mins for lunch. Reported forgot to take insulin this morning, non-compliance with medication. Denies signs excessive urination,dry mouth wt or blurry vision. 1 pm Blood sugar was rechecked for 558, and with more water blood sugar, was rechecked at 2 pm for 533. Patient was educated on increasing water intake, and plan to see the nurse frequently and speak to the staff if feeling any symptoms of hyperglycemic reactions. Staff was aware, also and was reviewed with the pt.Patient verbalized understanding Assessment & Plan (10/23/2024 9:21 PM EST): I haven't used my insulin in 4 days, and I'm supposed to be on 36 units of Lantus and a SS of Humalog. Comes down for BS check, states he doesn't have a glucometer (could use program's, but did not ask. Has been here for 4 days.) Recently admitted 09/11/24 to [facility] in [place] (where he is from) for DKA. Has been diabetic for 5-6 years. On insulin since then, also takes metformin. Sent to ED to get IV insulin, labs, r/o DKA. A1c one month ago 14.8 MUCH d/w pt need to be on insulin DAILY and likely for life. Appears to have some cognitive impairment, not clear. Will have pt see RN in program tomorrow for teaching and to assure he gets insulin, which is here. He needs his own glucometer, but leaving program possibly. Made appt for PCP initiation at [facility] on 11/02/24 with Nghia BIRCH. Advised also to go to [facility] walk in if he is at the [facility] anytime to meet with RN/RESIDENTIAL FIELD MANAGER/PA to get glucometer rx from [facility] (can't get from [facility]) and anything else he needs for his DM. Not on statin/ARB/ACEI, has some CKD and could benefit. Needs labwork, defer to PCP as leaving program before I can see him for a second visit. Resolved Problems Problem Noted Date Diagnosed Date Resolved Date Diabetic ketoacidosis withou t coma associated with type 2 diabetes mellitus ([facility]) 10/23/2024 11/02/2024 Immunizations Immunization Administration Dates Next Due Flu, Multi Dose 0.5 ML 09/18/2016,08/21/2016 Flu, Preservative Free 09/28/2023,07/21/2023 Hep B,adult,adjuvanted (HEPLISAV) 10/31/2024 INFLUENZA, SEASONAL, INJECTABLE 09/27/2023,02/08 INFLUENZA, SEASONAL, INJECTABLE, PRESERVATIVE FR EE 10/26/2024 Moderna COVID-19 (Spikevax), Mrna, Lnp-s, Pf, 50 Mcg/0.5 Ml, 12yr+ 10/26/2024 PNEUMOCOCCAL POLYSACCHARIDE PPV23 02/08/2014 Pfizer COVID-19 (Comirnaty), Mrna, Lnp-s, Pf, Juaquin-sucrose, 30 Mcg/0.3 Ml, 12yr+ 11/16/2022,01/12/2022 Pfizer-BioNTech COVID-19 Vac cine Bivalent, (LEONARDO PFIZER-BIONTECH COVID-19 VACCINE BIVALENT, (LEONARDO CAP 11/17/2022 TDAP 03/20/2024 Social History Tobacco Use Types Packs/Day Years Used Date Smoking Tobacco: Every Day Cigarettes Passive Smoke Exposure: Current Smokeless Tobacco: Never Tobacco Cessation:Ready to Q uit: No; Counseling Given: Yes Social Connections Answer Date Recorded Connectedness 0 10/23/2024 Financial Resource Strain Answer Date R ecorded Financial Resource Strain 0 2023 Stress Answer Date Recorded Stress 0 10/23/2024 Physical Activity Answer Date Recorded Physical Activity 0 10/23/2024 Food Insecurity Answer Date Recorded Food 0 10/23/2024 Transportation Needs Answer Date Record ed Transportation 0 10/23/2024 Housing Stability Answer Date Recorded Housing 0 10/23/2024 Safety and Environment Answer Date Robert rded Safety 0 10/23/2024 Utilities Answer Date Recorded Utilities 0 10/23/2024 Employment Answer Date Recorded Stress 0 10/23/2024 Sex and Gender Information Value Date Recorded Sex Assigned at Male 10/26/2024 6:49 AM PST Legal Sex Male 10:18 AM PST Gender Identity Male 10/26/2024 6:49 AM PST Sexual Orientation Straight 10/26/2024 6: 49 AM PST Last Filed Vital Signs Vital Sign Reading Time Taken Comments Blood Pressure 113/76 11/02/2024 3:27 PM EST Pulse 96 11/02/2024 3:27 PM EST Temperature 36.7 ??C (98 ??F) 11/02/2024 3:27 PM EST Respiratory Rate 16 11/02/2024 3:27 PM EST Oxygen Saturation 98% 11/02/2024 3:27 PM EST Inhaled Oxygen Concentration - - Weight 66.2 kg (146 lb) 11/02/2024 3:27 PM EST Height 167.6 cm (5' 6 ) 11/02/2024 3:27 PM EST Body Mass Index 23.57 11/02/2024 3:27 PM EST Plan of Treatment Health Maintenance Due Date Last Done Comments Anxiety Screening 1986 Urine Albumin Creatinine Rat io Screening 1986 Retinopathy Screening 1999 Imm-Pneumococcal (2 of 2 - PCV) 02/08/2015 4 Alcohol and Drug Screen 11/01/2024 Imm-Hepatitis B (2 of 2 - Cp G 2-dose series) 11/28/2024 10/31/2024 Depression Monitoring 01/24/2025 10/26/2024 Diabetes HbA1c 02/27/2025 11/29/2024, 10/02, 09/12/2024, Additional history exists Diabetes Foot Exam 11/02/2025 11/02/2024 Tobacco Cessation Counseling (#1) 11/02/2025 11/02/2024, 10/31/2024, 10/26/2024, Additional history exists LTBI Screening (#1) 11/08/2025 11/08/2024 Lipid Screening 11/08/2025 11/08/2024, 03/21/2024 Serum Creatinine 01/19/2026 01/19/2025, , 12/21/2024, Additional history exists Hypertension Screening (#1) 11/02/2027 Imm-DTaP/Tdap/Td (2 - Td or Tdap) 03/20/2034 024 [id number] Completed 10/26/2024, 11/01, 11/16/2022, Additional history exists Imm-Influenza Completed 10/26/2024, 09/02, 09/27/2023, Additional history exists HIV Screening Completed 11/08/2024, 10/02, 12/25/2021 Hepatitis C Screening Completed 11/22/2024 , 11/22/2024, 11/08/2024, Additional history exists Imm-Hepatitis A Discontinued Procedures Procedure Name Priority Date/Time Associated Diagnosis Comments HIV 1/2 AG & AB W/RFLX (4TH GEN) Routine 11/08/2024 11:29 AM EST Stimulant use disorder QUANTIFERON-TB GOLD PLUS Routine 11/08/2024 11:29 AM EST Screening examination for pulmonary tuberculosis COMPREHENSIVE METABOLIC PANEL Routine 11/08/2024 11:29 AM EST Type 2 diabetes mellitus with chronic kidney disease, with long-term current use of insulin, unspecified CKD stage ([facility]) CKD stage 3a, GFR 45-59 ml/min ([facility]) Stimulant use disorder HEPATITIS C AB W/RFLX HCV RNA, QT, RT PCR Routine 11/08/2024 11:29 AM EST Stimulant use disorder LIPID PANEL Routine 11/08/2024 11:29 AM EST Type 2 diabetes mellitus with chronic kidney disease, with long-term current use of insulin, unspecified CKD stage ([facility]) from Last 3 Months or Most Recently Relevant to Health Maintenance Results * QUANTIFERON-TB GOLD PLUS (11/08/2024 11:29 AM EST) QUANTIFERON NEGATIVE NEGATIVE Transfer To [facility] Comment: Negative test result. M. tuberculosis complex infection unlikely. NIL 0.03 IU/mL Transfer To [facility] MITOGEN-NIL 8.40 IU/mL [facility] TB1-NIL 0.01 IU/mL [facility] TB2-NIL 0.00 IU/mL [facility] Comment: The Nil tube value reflects the background interferon gamma immune response of the patient's blood sample. This value has been subtracted from the patient's displayed TB and Mitogen results. Lower than expected results with the Mitogen tube prevent false-negative Quantiferon readings by detecting a patient with a potential immune suppressive condition and/or suboptimal pre-analytical specimen handling. The TB1 Antigen tube is coated with the M. tuberculosis-specific antigens designed to elicit responses from TB antigen primed CD4+ helper T-lymphocytes. The TB2 Antigen tube is coated with the M. tuberculosis-specific antigens designed to elicit responses from TB antigen primed CD4+ helper and CD8+ cytotoxic T-lymphocytes. For additional information, please refer to https://[employer]/faq/QYG593 (This link is being provided for informational/ educational purposes only.) Blood Blood / Unknown 11/08/2024 1 1:29 AM EST 11/08/2024 11:30 AM EST Nghia BIRCH LAB - BLOOD DRAW Final Result [facility] [address] [address], [facility] [address] [address] * HEPATITIS C AB W/RFLX HCV RNA, QT, RT PCR (11/08/2024 11:29 AM EST) HEPATITIS C ANTIBODY NON-REACT TAEMKA NON-REACT TAMEKA Transfer To [facility] Comment: HCV antibody was non-reactive. There is no laboratory evidence of HCV infection. In most cases, no further action is required. However, if recent HCV exposure is suspected, a test for HCV RNA (test code 42926) is suggested. For additional information please refer to http://[employer]/faq/RXM31m1 (This link is being provided for informational/ educational purposes only.) Blood Blood / Unknown 11/08/2024 1 1:29 AM EST 11/08/2024 11:30 AM EST us Nghia BIRCH LAB - BLOOD DRAW Edited Result - Final Performing Organization Address [facility]/ZIP Co de Phone Number [facility] [address] [address], [facility] [address] [address] * HIV 1/2 AG & AB W/RFLX (4TH GEN) (11/08/2024 11:29 AM EST) HIV AG/AB, 4TH GEN NON-REAC TIVE NON-REAC TIVE [facility] Comment: HIV-1 antigen and HIV-1/HIV-2 antibodies were not detected. There is no laboratory evidence of HIV infection. PLEASE NOTE: This information has been disclosed to you from records whose confidentiality may be protected by state law. ??If your state requires such protection, then the state law prohibits you from making any further disclosure of the information without the specific written consent of the person to whom it pertains, or as otherwise permitted by law. A general authorization for the release of medical or other information is NOT sufficient for this purpose. ?? For additional information please refer to http://education.[facility]/faq/VTP724 (This link is being provided for informational/ educational purposes only.) The performance of this assay has not been clinically validated in patients less than 2 years old. Blood Blood / Unknown 11/08/2024 1 1:29 AM EST 11/08/2024 11:30 AM EST us Nghia BIRCH LAB - BLOOD DRAW Final Result Performing Organization Address [facility]/ZIP Co de Phone Number [facility] [address] [address], [facility] [address] [address] * (ABNORMAL) LIPID PANEL (11/08/2024 11:29 AM EST) CHOLESTEROL, TOTAL 207(H) <200 mg/dL [facility] HDL CHOLESTEROL 84 > OR = 40 mg/dL [facility] TRIGLYCERIDES 113 <150 mg/dL [facility] LDL-CHOLESTEROL 102(H) 99 mg/dL (calc) [facility] Comment: Reference range: <100 Desirable range <100 mg/dL for primary prevention; ?? <70 mg/dL for patients with CHD or diabetic patients with > or = 2 CHD risk factors. LDL-C is now calculated using the Elaine calculation, which is a validated novel method providing better accuracy than the Friedewald equation in the estimation of LDL-C. Leif SS et al. MUNIRA. 2013;310(19): 5435-9472 (http://education.[employer]/faq/DRF277) CHOL/HDLC RATIO 2.5 <5.0 (calc) [facility] NON-HDL CHOLESTEROL 123 <130 mg/dL (calc) [facility] Comment: For patients with diabetes plus 1 major ASCVD risk factor, treating to a non-HDL-C goal of <100 mg/dL (LDL-C of <70 mg/dL) is considered a therapeutic option. Blood Blood / Unknown 11/08/2024 1 1:29 AM EST 11/08/2024 11:30 AM EST Nghia BIRCH LAB - BLOOD DRAW Final Result [facility] [address] [place] [id number], Transfer To [address] [address] * (ABNORMAL) COMPREHENSIVE METABOLIC PANEL (11/08/2024 11:29 AM EST) GLUCOSE 212(H) 65 - 99 mg/dL [facility] Comment: ?Fasting reference interval For someone without known diabetes, a glucose value >125 mg/dL indicates that they may have diabetes and this should be confirmed with a follow-up test. UREA NITROGEN (BUN) 22 7 - 25 mg/dL [facility] CREATININE (blood) 1.36(H) 0.60 - 1.26 mg/dL [facility] EGFR 68 > OR = 60 mL/min/1. 73m2 [facility] BUN/CREATININE RATIO 16 6 - 22 (calc) [facility] SODIUM 137 135 - 146 mmol/L [facility] POTASSIUM 4.7 3.5 - 5.3 mmol/L [facility] CHLORIDE 96(L) 98 - 110 mmol/L [facility] CARBON DIOXIDE 38(H) 20 - 32 mmol/L [facility] [place] [employer] CALCIUM 10.1 8.6 - 10.3 mg/dL [facility] PROTEIN, TOTAL 7.4 6.1 - 8.1 g/dL [facility] ALBUMIN 4.3 3.6 - 5.1 g/dL [facility] [place] [facility] GLOBULIN 3.1 1.9 - 3.7 g/dL (calc) [facility] ALBUMIN/GLOBULI N RATIO 1.4 1.0 - 2.5 (calc) [facility] BILIRUBIN, TOTAL 0.4 0.2 - 1.2 mg/dL [facility] ALKALINE PHOSPHATASE 551(H) 36 - 130 U/L [facility] AST 80(H) 10 - 40 U/L [facility] ALT 119(H) 9 - 46 U/L [facility] Blood Blood / Unknown 11/08/2024 1 1:29 AM EST 11/08/2024 11:30 AM EST Nghia BIRCH LAB - BLOOD DRAW Edited Result - Final [facility] [address] [address], [facility] [address] [address] from Last 3 Months or Most Recently Relevant to Health Maintenance Insurance [place] MEDICAID [facility] Care Teams Emergency Vehicle Operations Instructor Relationship Specialty Start Date End Date Nghia Velez [place] [address] [place] [id number] PCP - General FAMILY MEDICINE, [place] 11/02/24
--- OUTSIDE RECORDS SUMMARY | 2025-02-27 15:56 | XMS_ITS ---
Author Organization [facility] Address [address] [place] [address] Care Team Providers Care Pointing Machine Operator Name Role Phone [place] Chari TERRAPIN FISHER Primary Care Provider [phone] Gloria Garcia PharmD Unavailable [phone] CHW Complex Status:Outreach In Progress (Enrolling) Start date:01/29/2025 Overview ED- Pt went to [facility] ED on 01/28/25. Case Team Name Relationship Phone Nirmala Alfaro (Responsible Staff) Continued Care and Services Coordination
--- OUTSIDE RECORDS SUMMARY | 2025-02-27 15:56 | XMS_ITS ---
Author Organization [employer] Address [address] [facility] 7t [place] [address] Care Team Providers Care Manager Inpatient Name Role Phone [facility] SENIOR SYSTEM OPERATOR Primary Care Provider [phone] Gloria Garcia PharmD Unavailable [phone] CM Complex Status:Outreach In Progress (Enrolling) Start date:01/29/2025 Enrollment reason:ADT Feed Overview ED- Pt went to [facility] ED on 01/28/25. Case Team Name Relationship Phone Deo Raygoza RN Registered Nurse(Responsible S taff) Continued Care and Services Coordination
--- OUTSIDE RECORDS SUMMARY | 2025-02-27 15:56 | XMS_ITS | Encounter Summary ---
Author Organization [employer] Address [address] [facility] 7t [place] [address] Care Team Providers Care Capacity Management Specialist Name Role Phone [facility] Primary Care Provider [phone] Gloria Garcia PharmD Unavailable [phone] Reason for Visit * Reason Onset Date Comments Prior Authorization 02/14/2025 ADRIEL BIRCH Reques t: insulin lispro (HumaLOG KWIKPEN) 100 UNIT/ML injection Encounter Details Date Type Department Care Team (Late st Contact Info) Description 02/14/2025 Telephone [facility] MEDICINE [address] [place], [place] [phone] [facility] [address] [place], [place] [phone] Prior Authorization (ADRIEL BIRCH Request: insulin lispro (HumaLOG KWIKPEN) 100 UNIT/ML injection) Social History Tobacco Use Types Packs/Day Years [...] encounter Miscellaneous Notes * Telephone Encounter - Lisa Alfaro - 02/23/2025 4:28 PM EDT PA for insulin lispro (HumaLOG KWIKPEN) 100 UNIT/ML injection signed and faxed to [email or web address]. Confirmation received and sent to scan. If patient calls to check status on above, please advise them to contact [facility] at [phone]. * Telephone Encounter - Lisa Alfaro - 02/14/2025 10:23 AM EDT PA for insulin lispro (HumaLOG KWIKPEN) 100 UNIT/ML injection from [facility] placed on PCP desk for signature. documented in this encounter Plan of Treatment Upcoming Encounters Date Type Department Care Team (Late st Contact Info) Description 03/01/2025 3:00 PM EDT Medication Management [facility] MEDICINE [address] [place] [address] [place] [address] 03/21/2025 10:30 AM EDT Office Visit [facility] MED[facility]INE [address] [place] [address] Chari De Los Santos FNP [address] [place] [address] documented as of this encounter Visit Diagnoses Not on filedocumented in this encounter Additional Health Concerns Assessment Noted Time PHQ-9 Depression Total Score: 24 01/05/ 025 1:54 PM EST documented as of this encounter Care Teams Capacity Management Specialist Relationship Specialty Start Date End Date Chari De [place] [address] PCP - General Family Medicine 09/22/22 Gloria Garcia PharmD [address] [place] [phone] Pharmacist Internal Medicine 02/12/25 documented as of this encounter
--- OUTSIDE RECORDS SUMMARY | 2025-02-27 15:56 | XMS_ITS | Encounter Summary ---
Author Organization [employer] Address [address] [facility] 7t [place] [address] Care Team Providers Care Liberal Arts Dean Name Role Phone [place] Primary Care Provider [phone] Gloria Garcia PharmD Unavailable [phone] Reason for Visit * Reason Onset Date Comments Hospital Follow-up 12/22/2024 Encounter Details Date Type Department Care Team ([facility] st Contact Info) Description 12/22/2024 Telephone [facility] MEDICINE [address] [place], [place] [phone] [facility] [address] [place], [place] [phone] Hospital Follow-up Social History Tobacco Use Types Packs/Day Years Used Date Smoking Tobacco: Every Day Cigarettes Smokeless Tobacco: Never Alcohol Use Standard Drinks/Week Comments Not Asked 0 (1 standard drink = 0.6 oz pur e alcohol) Alcohol Answer Date Recorded Frequency of Alcohol Consumption Not on file 03/20/2024 Average Number of Drinks Not on file 024 Frequency of Binge Drinking Not on file 03/02 Score 0 03/20/2024 Depression Answer Date Recorded Patient Health Questionnaire-9 Score 0 07/21/2023 Housing Stability Answer Date Recorded What is [...] Answer Date Recorded Patient Health Questionnaire-2 Score 0 07/21/2023 Sex and Gender Information Value Date Recorded Sex Assigned at Male 08/31/2022 10:40 AM EDT Legal Sex Male 10:40 AM EDT Gender Identity Male 08/31/2022 10:40 AM EDT Sexual Orientation Choose not to disclose 2021 10:40 AM EDT documented as of this encounter Miscellaneous Notes * Telephone Encounter - Chava Durand - 12/22/2024 3:08 PM EST Tc from pt requesting a HDF appt. Hospital: pt disconnect call Date of admission: 12/16/2024 Discharge date: 12/22/2024 Diagnosed: knee pain (right) chest pain *Send message to [facility] Care Coordinators documented in this encounter Plan of Treatment Upcoming Encounters Date Type Department Care Team (Late st Contact Info) Description 03/01/2025 3:00 PM EDT Medication Management [facility] MEDICINE [address] [place] [phone] Gloria Garcia PharmD [address] [place] [address] 03/21/2025 10:30 AM EDT Office Visit [facility] MEDICINE [address] [place] [address] Chari De Los Santos FNP [address] [place] [address] documented as of this encounter Visit Diagnoses Not on filedocumented in this encounter Additional Health Concerns Assessment Noted Time PHQ-9 Depression Total Score: 0 09/20/20 23 9:21 AM EDT documented as of this encounter Care Teams Liberal Arts Dean Relationship Specialty Start Date End Date Magali KARELY Marcelino [address] [place] [address] PCP - General Family Medicine 09/22/22 Gloria Garcia PharmD [address] [place] [address] Pharmacist Internal Medicine 02/12/25 documented as of this encounter
--- OUTSIDE RECORDS SUMMARY | 2025-02-27 15:56 | XMS_ITS | Encounter Summary ---
Author Organization [employer] Address [address] [facility] 7t [place] [address] Care Team Providers Care Director Of Claims Name Role Phone [facility] Primary Care Provider [phone] JoseGloria PharmD Unavailable [phone] Reason for Visit * Reason Onset Date Comments Medication Question 04/15/2023 Encounter Details Date Type Department Care Team ([facility] st Contact Info) Description 04/15/2023 Telephone [facility] MEDICINE [address] [place], [place] [phone] [employer] [address] [place] [address] Medication Question Social History Tobacco Use Types Packs/Day Years Used Date Smoking Tobacco: Never Assessed Sex and Gender Information Value Date Recorded Sex Assigned at Male 08/31/2022 10:40 AM EDT Legal Sex Male 10:40 AM EDT Gender Identity Male 08/31/2022 10:40 AM EDT Sexual Orientation Choose not to disclose 2021 10:40 AM EDT COVID-19 Exposure Response Date Recorded In the last 10 days, have yo u been in contact with someone who was confirmed or suspected to have Coronavirus/COVID-19? No / Unsure 04/16/2023 1:01 PM EDT documented as of this encounter Miscellaneous Notes * Telephone Encounter - Maryam Woody RN - 04/15/2023 4:11 PM EDT T/C to [phone] for below message through [employer] id - [id number]. Pt. States he was prescribe freestyle rissa sensor from Dr. Fitzgerald Automatic Coin Machine Mechanic. Pt. Advised to give call to Automatic Coin Machine Mechanic. Pt. Verbally agreed and understood. [place] team advised to schedule TP apt. * Telephone Encounter - Sona Garcia - 04/15/2023 3:15 PM EDT Tc from patient requesting a med refill for a freestyle rissa sensor. Patient hasn't been seen withnew PCP. Publication Designer attempted to schedule TP appt but no available appt at this time. Please advise. documented in this encounter Plan of Treatment Upcoming Encounters Date Type Department Care Team (Late st Contact Info) Description 03/01/2025 3:00 PM EDT Medication Management [facility] MEDICINE [address] [place] [phone] Gloria Garcia PharmD [address] [place] [phone] 03/21/2025 10:30 AM EDT Office Visit [facility] MEDICINE [address] [place] [phone] Chari De Los Santos FNP [address] [place] [phone] documented as of this encounter Visit Diagnoses Not on filedocumented in this encounter Care Teams Director Of Claims Relationship Specialty Start Date End Date Chari De Los Santos FNP [address] [place] [phone] PCP - General Family Medicine 09/22/22 Gloria Garcia PharmD [address] [place] [phone] Pharmacist Internal Medicine 02/12/25 documented as of this encounter
--- OUTSIDE RECORDS SUMMARY | 2025-02-27 15:56 | XMS_ITS | Clinical Summary ---
Author Organization [employer] Address [address] [facility] [address] [place] [address] Care Team Providers Care Distribution Operations Manager Name Role Phone [facility] Primary Care Provider [phone] GarciaGloria wong PharmD Unavailable [phone] Allergies No known active allergies Medications naloxone (Narcan) 4 mg/0.1 mL nasal spray 12/14/19 24 Active Alcohol Swabs (Alcohol Prep) pads Use prior to checking BS daily 100 each 10/20/20 24 Active Blood Glucose Monitoring Suppl (FreeStyle Oldhams Lite) w/Device kit Use as directed three times a day 1 kit 10/20/20 24 Active magnesium oxide (Mag-Ox) 400 (240 Mg) MG tablet Take 1 tablet by mouth Once per day. 12/22/19 25 Active sertraline (Zoloft) 50 MG tablet Take 1 tablet by mouth at bedtime. 12/04/19 25 Active BD Pen Needle Aniya U/F 32G X 4 MM miscIndications: Type 2 diabetes mellitus with hyperglycemia, with long-term current use of insulin ([facility]) USE TO INJECT INSULIN 4 TIMES PER DAY 100 each 11 01/06/20 25 Active glucose blood (FREESTYLE LITE) test stripIndications :Type 2 diabetes mellitus with hyperglycemia, with long-term current use of insulin (CMS/[facility]) Use as directed three times a day 100 each 01/06/20 25 Active Lancets (Unilet GP 28) miscIndications: Type 2 diabetes mellitus with hyperglycemia, with long-term current use of insulin (CMS/[facility]) Use three times a day as directed 100 each 01/06/20 25 Active clobetasol (Temovate) 0.05 % ointmentIndicati ons:Skin lesion Apply topically 2 times daily. 30 g 01/06/20 25 Active mupirocin (Bactroban) 2 % ointmentIndicati ons:Skin lesion Apply topically 2 times daily. 30 g 01/06/20 25 Active gabapentin (Neurontin) 300 MG capsuleIndicatio ns:Type 2 diabetes mellitus with hyperglycemia, with long-term current use of insulin (CMS/HCC) Take 1 capsule (300 mg) by mouth 3 times daily. 90 capsule 01/06/20 25 026 Active Continuous Glucose Sensor (FreeStyle Hung 2 Sensor) miscIndications: Type 2 diabetes mellitus with hyperglycemia, with long-term current use of insulin (CMS/HCC) Use as directed 2 each 3 01/27/20 25 Active nicotine polacrilex (Nicorette) 4 MG gumIndications:T obacco use Chew 1 each (4 mg) every 1 (one) hour if needed for smoking cessation. 100 each 01/30/20 25 025 Active acetaminophen (Tylenol) 325 MG tablet Take 650 mg by mouth every 6 (six) hours if needed. Active folic acid (Folvite) 1 MG tablet take 1 tablet by mouth 1 time each day. Active thiamine (Vitamin B-1) 100 MG tablet take 1 tablet by mouth 1 time each day. Active metFORMIN, OSM, (Fortamet) 1000 MG 24 hr tabletIndication s:Type 2 diabetes mellitus with hyperglycemia, with long-term current use of insulin (CMS/HCC) Take 1 tablet (1,000 mg) by mouth with breakfast and with evening meal. Do not crush, chew, or split. 180 tablet 02/13/20 25 026 Active Continuous Glucose Grievance And Appeals Coordinator (FreeStyle Hung 3 [place]) deviceIndication s:Type 1 diabetes mellitus with hyperglycemia (CMS/HCC) 1 each Once per day. Use as directed for CGM 1 each 02/13/20 25 Active Continuous Glucose Sensor (FreeStyle Hung 3 Plus Sensor) miscIndications: Type 1 diabetes mellitus with hyperglycemia (CMS/HCC) Apply 1 every 15 days as directed for CGM 2 each 02/13/20 25 Active glucose blood (FreeStyle Precision Dean Test) test stripIndications :Type 1 diabetes mellitus with hyperglycemia (CMS/HCC) Use to test blood sugar 3 times daily in case of CGM failure or extremes of BG 100 each 11 02/13/20 25 Active glucose 4 g chewable tabletIndication s:Type 2 diabetes mellitus with hyperglycemia, with long-term current use of insulin (CMS/[facility]) Chew 4 tablets (16 g) if needed for low blood sugar. 50 tablet 12 02/13/20 25 026 Active insulin lispro (HumaLOG KWIKPEN) 100 UNIT/ML injectionIndicat ions:Type 2 diabetes mellitus with hyperglycemia, with long-term current use of insulin (CMS/HCC) Inject three times daily per sliding scale. 2 units for BS 150-199; 4 units 200-249; 6 units 250-300; 8 units greater than 300 15 mL 3 02/13/20 25 Active insulin glargine (Lantus SoloStar) 100 UNIT/ML penIndications:T ype 2 diabetes mellitus with hyperglycemia, with long-term current use of insulin (CMS/[facility]) Inject 42 Units under the skin at bedtime. 15 mL 5 02/13/20 25 026 Active metFORMIN (Glucophage) 500 MG tabletIndication s:Type 2 diabetes mellitus with hyperglycemia, with long-term current use of insulin (CMS/[facility]) Take 2 tablets (1,000 mg) by mouth with breakfast and with evening meal. 120 tablet 3 01/06/20 25 025 Discontinued(A lternate therapy) insulin lispro (HumaLOG KWIKPEN) 100 UNIT/ML injectionIndicat ions:Type 2 diabetes mellitus with hyperglycemia, with long-term current use of insulin (CMS/[facility]) Inject three times daily per sliding scale. 2 units for BS 150-199; 4 units 200-249; 6 units 250-300; 8 units greater than 300 15 mL 1 01/06/20 25 025 Discontinued(R eorder (will not trigger notification to Pharmacy)) Lantus 100 UNIT/ML injectionIndicat ions:Type 2 diabetes mellitus with hyperglycemia, with long-term current use of insulin (CMS/HCC) Inject 40 Units under the skin at bedtime. 15 mL 1 01/27/20 25 025 Discontinued nicotine polacrilex (Nicorette) 4 MG gumIndications:T obacco use Chew 1 each (4 mg) if needed for smoking cessation. 100 each 01/27/20 25 025 Discontinued(R eorder (will not trigger notification to Pharmacy)) insulin glargine (Lantus SoloStar) 100 UNIT/ML penIndications:T ype 2 diabetes mellitus with hyperglycemia, with long-term current use of insulin ([facility]) Inject 40 Units under the skin at bedtime. 12 mL 11 02/01/20 25 025 Discontinued(R eorder (will not trigger notification to Pharmacy)) Active Problems Problem Noted Date Diagnosed Date Type 1 diabetes mellitus with hyperglycemia 03/02 Dyslipidemia 05/24/2023 Housing instability 05/24/2023 Tachycardia 05/24/2023 Anxiety 04/16/2023 Assessment & Plan (04/16/2023 2:21 PM EDT): Counseling done He uses [facility] but then we call to his residential and we were able to obtain the information for his clonidine he takes 0.1mg BID Dr Trent prescribes it and it was send to [facility] pharmacy, refilled done Follow up with psychiatrist and therapist Polysubstance abuse 04/16/2023 Overview (08/23/2023): Currently living at [facility]. Well established with therapist and psychiatrist. Working with recovery program through [facility]. On vivitrol. Assessment & Plan (04/16/2023 2:22 PM EDT): Patient has being clean for years now he used to abuse cocaine Depressive disorder 12/24/2021 Resolved Problems Problem Noted Date Diagnosed Date Resolved Date Diabetes 04/16/2023 03/22/2024 Overview (08/23/2023): ?? Metformin 1000mg b.i.d ?? Lantus 36 units ?? Stopped trulicity due to weight loss Current A1c: BMP: Microalbumin: Foot Exam: Complete at follow up Eye Exam: Discuss at follow up Lipid panel: ASCVD: Calculate pending updated labs Statin: Yes ASA: No LISBET/ARB: No Encouraged regular aerobic exercise for improved glycemic control Encouraged daily foot checks Encouraged lean protein snacks and to avoid foods high in sugar and simple carbohydrates Treatment Goals: A1c goal: <7% FBG goal: <130 2 hour post prandial goal: <180 Assessment & Plan (04/16/2023 2:19 PM EDT): I advise to please follow up with endocrinology and PCP I advise not to miss his medications and to follow diabetic diet Uncomplicated opioid dependence 04/16/2023 04/16/2023 Encounters Date Type Department Care Team Description 02/27/2025 Telephone [facility] [address] [place] [phone] [facility] 02/27/[address] [address] [phone] [place] [address] [facility] order 02/22/2025 Patient Outreach [address] [address] [phone] [place] [address] 02/14/[address] [address] [phone] [place] [address] Prior Authorization ( [place] Request: insulin lispro (HumaLOG KWIKPEN) 100 UNIT/ML injection) 02/13/2025 Patient Outreach [address] [address] [phone] [place] [address] Care Coordination (C3CM- initial assessment/ enrollment. No show. ) 02/12/2025 Patient Outreach [address] [address] [facility] 02/12/2025 Patient Outreach [address] [address] [facility] 02/12/2025 Patient Outreach [address] [address] [phone] [place] [address] Care Coordination (CM/CHW appt reminder) 02/12/2025 Travel 02/12/2025 Patient Outreach [address] [address] [facility] 02/12/2025 Patient Outreach [address] [address] [facility] 02/06/2025 Patient Outreach [facility] [address] [place] [address] [facility] 02/06/2025 Patient Outreach [facility] [address] [place], [place] [address] [facility] 02/06/2025 Patient Outreach [facility] [address] [place] [address] [facility] 01/29/2025 Refill [facility] [address] [place] [address] [facility] Type 2 diabetes mellitus with hyperglycemia, with long-term current use of insulin ([facility]) 01/29/2025 Patient Outreach [facility] [address] [place], [place] [address] [facility] 01/29/2025 Patient Outreach [facility] [address] [place] [address] [facility] Care Coordination (CHW Chart Review) 01/29/2025 Refill [facility] [address] [place] [address] [facility] Tobacco use 01/29/2025 Patient Outreach [facility] [address] [place] [address] [facility] 01/26/2025 Telephone [facility] [address] [place] [address] [facility] Review CGM data 01/26/2025 Orders Only [facility] [address] [place] [address] [facility] 01/25/2025 Patient Outreach [facility] [address] [place] [address] [facility] Care Coordination (CM/CHW outreach) 01/25/2025 Telephone [facility] [address] [place] [address] [facility] Prior Authorization ( PA: Darrion Persaud 2 Sensor) 01/24/2025 Patient Outreach [facility] [place] [address] Chari De Los Santos FNP Error (VOID this visit) 01/24/2025 Patient Outreach [facility] [place] [address] Chari De Los Santos FNP 01/22/2025 Telephone [facility] [place] [address] Chari De Los Santos FNP 01/22/2025 Telephone [facility] [place] [address] Chari De Los Santos FNP CGM data 01/22/2025 Travel 01/17/2025 Patient Outreach [facility] [place] [address] Chari De Los Santos FNP Care Coordination (CM/CHW outreach) 01/16/2025 Telephone [facility] [place] [address] Chari De Los Santos FNP 01/15/2025 Orders Only [facility] [place] [address] Gabriela Oliva MD Type 1 diabetes mellitus with hyperglycemia (CMS/HCC) (Primary Dx) 01/12/2025 Population Health Risk Score [facility] () [address] [address] Provider, Population Health Generic 01/05/2025 1:30 PM EST Office Visit [facility] [place] [address] Chari De Los Santos FNP Type 2 diabetes mellitus with hyperglycemia, with long-term current use of insulin (CMS/HCC) (Primary Dx); Skin lesion; Hypomagnesemia 01/05/2025 Travel 01/05/2025 Patient Outreach [facility] [place] [address] Chari De Los Santos FNP Care Coordination (CHW/Cm outreach) 01/04/2025 Telephone [facility] [place] [address] Chari De Los Santos FNP Med Refill 01/03/2025 Telephone [facility] [place] [address] Chari De Los Santos [facility] Medication Question 12/22/2024 Patient Outreach [facility] [address] [place] [address] Republic Chari [facility] Care Coordination (CM/CHW appt) 12/22/2024 Patient Outreach [facility] [address] [place] [address] [facility] Transition Of Care (Tcm) (HDF scheduled. ) 12/22/2024 Telephone [facility] [address] [place] [address] Republic [facility] Follow-up 12/15/2024 Patient Outreach [address] [address] [facility] Care Coordination (CM/CHW outreach) 12/06/2024 Patient Outreach [address] [phone] [facility] Care Coordination (CM/CHW outreach) 12/01/2024 Patient Outreach [facility] [address] [place] [address] [facility] Care Coordination (CM/CHW outreach) from Last 3 Months Immunizations Name Administration Dates Next Due HepB-CpG 10/31/2024 Influenza injectable quadriv alent IIV4 with preservative 09/18/2016,08/21/2016 Influenza injectable quadriv alent preservative free 09/28/2023,07/21/2023 Influenza, IIV3, injectable 09/27/2023,1 11/18/2015,08/21/2016,02/08 Influenza, seasonal, injecta ble, preservative free 10/26/2024 Pfizer Covid-19 Vaccine 12+ Bivalent 11/17/2022 Pfizer Covid-19 Vaccine 12+ ciro-sucrose (Hayes Cap) 01/13/2022 Pneumococcal Polysaccharide PPSV23 02/08/2014 Tdap 03/20/2024 Social History Tobacco Use Types Packs/Day Years Used Date Smoking Tobacco: Every Day Cigarettes Passive Smoke Exposure: Current Smokeless Tobacco: Never Tobacco Cessation:Ready to Q uit: Not Asked; Counseling Given: Not Answered Alcohol Use Standard Drinks/Week Comments Not Asked [...] not to disclose 2021 10:40 AM EDT Last Filed Vital Signs Vital Sign Reading Time Taken Comments Blood Pressure 109/71 02/12/2025 11:13 AM EDT Pulse 111 02/12/2025 11:13 AM EDT Temperature 36.4 ??C (97.6 ??F) 02/12/2025 11:13 AM E DT Respiratory Rate 17 02/12/2025 11:13 AM EDT Oxygen Saturation 99% 02/12/2025 11:13 AM EDT Inhaled Oxygen Concentration - - Weight 71.8 kg (158 lb 3.2 oz) 02/12/2025 11:13 AM EDT Height 167.6 cm (5' 6 ) 01/05/2025 1:52 PM EST Body Mass Index 25.53 01/05/2025 1:52 PM EST Plan of Treatment Upcoming Encounters Date Type Department Care Team (Late st Contact Info) Description 03/01/2025 3:00 PM EDT Medication Management [facility] [address] [place] [address] Gloria Garcia, YovannyD [address] [place] [address] 03/21/2025 10:30 AM EDT Office Visit [facility] [address] [place], [place] [phone] RepublicChari FNP [address] [place] [address] Health Maintenance Due Date Last Done Comments Eye Exam 1996 Family Planning (PISQ) 2001 Pneumococcal Vaccine: Pediatrics (0 to 5 Years) and At-Risk Patients (6 to 49) Years) (2 of 2 - PCV) 02/08/2015 02/08/2014 Hepatitis B Vaccines (2 of 2 - CpG 2-dose series) 11/28/2024 10/31/2024 Alcohol/Substance Use Screening 03/20/2025 03/20/2024 Diabetes: Foot Exam 03/20/2025 03/20/2024 Diabetes: Urine Protein Screening 03/21/2025 03/21/2024, 07/21/2023, 07/28/2022, Additional history exists Lipid Panel 03/21/2025 03/21/2024, 07/03, 12/25/2021 Diabetes: Hemoglobin A1C 04/25/2025 025, 01/19/2025, 01/05/2025, Additional history exists Depression Screening 01/05/2026 01/05/2025, 01/06/20 25 SDOH Screening 01/05/2026 01/05/2025 Tobacco Screening 02/12/2026 02/12/2025 DTaP/Tdap/Td Vaccines (2 - Td or Tdap) 03/20/2034 03/20/2024 Zoster Vaccines (1 of 2) 2036 RSV Patients and Patients Aged 60 years or older (1 - 1-dose 75+ series) 2061 Hepatitis C Screening Completed 03/21/2024 , 07/21/2023, 12/25/2021 COVID-19 Vaccine Completed 10/26/2024, , 01/13/2022, Additional history exists Influenza Vaccine Completed 10/26/2024, , 09/27/2023, Additional history exists HIV Screening Completed 11/08/2024, 07/03, 12/25/2021 HIB Vaccines Aged Out No longer eligi ble based on patient's age to complete this topic HPV Vaccines Aged Out No longer eligi ble based on patient's age to complete this topic Hepatitis A Vaccines Aged Out No long er eligible based on patient's age to complete this topic IPV Vaccines Aged Out No longer eligi ble based on patient's age to complete this topic Meningococcal Vaccine Aged Out No elyse danae eligible based on patient's age to complete this topic RSV under 20 months Aged Out No longe r eligible based on patient's age to complete this topic Rotavirus Vaccines Aged Out No longer eligible based on patient's age to complete this topic Procedures Procedure Name Priority Date/Time Associated Diagnosis Comments POCT GLYCATED HEMOGLOBIN, TOTAL Routine 01/05/2025 1:56 PM EST Type 2 diabetes mellitus with hyperglycemia, with long-term current use of insulin ([facility]) POCT GLUCOSE Routine 01/05/2025 1:56 PM EST Type 2 diabetes mellitus with hyperglycemia, with long-term current use of insulin (CMS/HCC) LIPID PANEL, STANDARD Routine 03/21/2024 9:21 AM EDT Type 2 diabetes mellitus with hyperglycemia, with long-term current use of insulin (CMS/[facility]) HEPATITIS PANEL, GENERAL Routine 03/21/2024 12:00 AM EDT Type 2 diabetes mellitus with hyperglycemia, with long-term current use of insulin (CMS/HCC) ALBUMIN, RANDOM URINE W/CREATININE Routine 03/21/2024 12:00 AM EDT Type 2 diabetes mellitus with hyperglycemia, with long-term current use of insulin (CMS/HCC) HIV ANTIBODY/ANTIGEN ([place] [facility]) Routine 07/21/2023 10:25 AM EDT from Last 3 Months or Most Recently Relevant to Health Maintenance Results * (ABNORMAL) POCT HGB A1C (01/05/2025 1:56 PM EST) Pathologist [facility] Hemoglobin A1C 11.3(A) 4.0 - 6.0 % QC Media Lot # [id number] Lot# Expiration Date ,761 Blood 01/05/2025 1:56 PM EST [facility] POINT OF CARE TEST ENTER/EDIT ORDERABLES Final Result * (ABNORMAL) POCT Glucose (01/05/2025 1:56 PM EST) Pathologist [facility] Glucose Blood, POC 435(A) 60 - 200 mg/dL Comment:Random QC Media Lot # [id number] Lot# Expiration Date [id number] Blood Capillary blood specimen / Unknown 01/05/2025 1:56 PM EST [facility] POINT OF CARE TEST ENTER/EDIT ORDERABLES Final Result * (ABNORMAL) Lipid Panel, Standard (03/21/2024 9:21 AM EDT) Pathologist [facility] Triglycerides 106 <150 mg/dL [facility] Comment:Desirable Triglyceri de: less than 150 mg/dLBorderline High Triglyceride 150-199 mg/dLHigh Triglyceride: 200-499 mg/dLVery High Triglyceride: greater than or equal to 5OO mg/dL Cholesterol 168 <200 mg/dL [facility] Comment:Desirable Cholestero l: less than 200 mg/dLBorderline High Cholesterol: 200-239 mg/dLHigh Cholesterol: greater than 239 mg/dL LDL Cholesterol Calculated 101(H) <100 mg/dL [facility] Comment:Desirable LDL: less than 100 mg/dLNear Optimal/Above Optimal LDL: 110- 129 mg/dLBorderline High LDL: 130-159 mg/dLHigh LDL: 160-189 mg/dLVery High LDL: greater than or equal to 190 mg/dL HDL Cholesterol 46 >40 mg/dL [facility] Comment:Desirable HDL: great er than 40 mg/dL Note: This HDL assay may give artificially low results in patients with liver disease. Blood Venous blood specimen / Unknown 03/21/2024 9:21 AM EDT 03/21/2024 11:19 AM EDT [facility] LAB BLOOD ORDERABLES Final Re sult Performing Organization Address [facility] Co de Phone Number [facility] [address] [place] [phone] * Hepatitis Panel, General (03/21/2024 12:00 AM EDT) Hepatitis A IgM Nonreactive Nonreactive [facility] Comment:IgM antibodies to ESQUEDA V not detected; does not exclude earlyacute or recovered HAV infection. ~Hepatitis B Surface Antibody REACTIVE Nonreactive [facility] Comment:REACTIVE: > 11.99 mI U/mL Hepatitis B Core Antibody Nonreactive Nonreactive [facility] Hepatitis C Antibody Nonreactive Nonreactive [facility] Comment:Antibodies to HCV no t detected; does not exclude early acuteHCV infection. Hepatitis B Surface Ag Negative Negative [facility] Blood 03/21/2024 03/21/2024 [facility] LAB BLOOD ORDERABLES Final Re sult Performing Organization Address [facility]/ZIP Co de Phone Number [facility] [address] [place] [phone] * (ABNORMAL) Albumin, Random Urine W/Creatinine (03/21/2024 12:00 AM EDT) Creatinine, Urine 129.74 mg/dL [facility] Microalbumin Urine 109.0 mg/L [facility] Microalbum Creatinine Ratio Ur 84.0(H) <30 ug/mg cr [facility] Comment:Albumin/Creatinine R atio Reference Ranges: Normal: < 30 ug/mg creatinine Microalbuminuria: 30 - 300 ug/mg creatinineClinical Albuminuria: > 300 ug/mg creatinine Urine 03/21/2024 03/21/2024 [facility] LAB URINE ORDERABLES Final Re sult Performing Organization Address [facility]/ZIP Co de Phone Number [facility] [address] [place] [address] [phone] * HIV Ab/Ag ([facility]) (07/21/2023 10:25 AM EDT) HIV AB/AG Nonreactive Nonreactive [facility] Comment:HIV-1 p24 Ag and/or HIV-1/HIV-2 Ab not detected.A test result that is nonreactive does not exclude thepossibility of exposure to or infection with HIV-1 and/orHIV-2. Nonreactive results in this assay for individualswith prior exposure to HIV-1 and/or HIV-2 may be due toantigen and antibody levels that are below the limit ofdetection of this assay.The [employer] HIV Ag/Ab Combo assay result andsupplemental assay results should be interpreted inconjunction with the patient's clinical presentation,history and other laboratory results. If the results areinconsistent with clinical evidence, additional testing issuggested to confirm the result. 07/21/2023 10:2 5 AM EDT 07/21/2023 11:22 AM EDT [facility] LAB BLOOD ORDERABLES Final Re sult Performing Organization Address City/[facility]/ZIP Co de Phone Number [facility] [address] [place] [address] [phone] from Last 3 Months or Most Recently Relevant to Health Maintenance Insurance [facility] C3 Care Teams Distribution Operations Manager Relationship Specialty Start Date End Date Chari De Los Santos FNP [address] [place] [address] PCP - General Family Medicine 09/22/22 Gloria Garcia PharmD [address] [place] [address] Pharmacist Internal Medicine 02/12/25
--- OUTSIDE RECORDS SUMMARY | 2025-02-27 15:56 | XMS_ITS | Encounter Summary ---
Author Organization [employer] Address [address] [facility] 7t [place] [address] Care Team Providers Care Senior Sql Dba Name Role Phone Mikana [facility] Primary Care Provider [phone] Gloria Garcia PharmD Unavailable [phone] Encounter Details Date Type Department Care Team (Late st Contact Info) Description 02/22/2025 Patient Outreach [facility] [address] [place], [place] [phone] [facility] 230 [place] [address] Social History Tobacco Use Types Packs/Day Years [...] AM EDT documented as of this encounter Progress Notes * Nirmala Alfaro - 02/22/2025 9:20 AM EDT CHW Nirmala Alfaro placed outbound call to patients sister phone [phone] in regards to rescheduling missed initial assessment appointment on 02/13/25 for Adult Complex Care program services. No answer at this time. LVM introducing self from [facility] CM Department with name and direct contact number requesting call back. Will re-attempt to contact within 5 days. DOBand address not confirmed. documented in this encounter Plan of Treatment Upcoming Encounters Date Type Department Care Team (Late st Contact Info) Description 03/01/2025 3:00 PM EDT Medication Management [facility] [address] [place] [address] Gloria Garcia PharmD [address] [place] [address] 03/21/2025 10:30 AM EDT Office Visit [facility] [address] [place] [address] Chari De Los Santos FNP [address] [place] [address] documented as of this encounter Visit Diagnoses Not on filedocumented in this encounter Additional Health Concerns Assessment Noted Time PHQ-9 Depression Total Score: 24 025 1:54 PM EST documented as of this encounter Care Teams Senior Sql Dba Relationship Specialty Start Date End Date MagaliChari woodard FNP [address] [place] [address] PCP - General Family Medicine 09/22/22 Gloria Garcia PharmD [address] [place] [address] Pharmacist Internal Medicine 02/12/25 documented as of this encounter
--- OUTSIDE RECORDS SUMMARY | 2025-02-27 15:56 | XMS_ITS | Encounter Summary ---
Author Organization [employer] Address 75 [facility] 7t [place] [address] Care Team Providers Care Online Trader Name Role Phone [facility] [place] [facility] Primary Care Provider [phone] Gloria Garcia PharmD Unavailable [phone] Reason for Referral * Consultation (Routine) - Authorized Specialty Diagnoses / Procedures Referred By Contrebecca t Referred To Contact Pharmacy Diagnoses Type 1 diabetes mellitus with hyperglycemia (CMS/HCC) Gabriela Oliva MD [address] [place] [address] Phone: tel: fax: Referral ID Status Reason Start Date Expiration Date Visits Requested Visits Authorized [id number] Authorized Consult and Treat 01/15/2025 01/15/2026 6 6 Encounter Details Date Type Department Care Team (Late st Contact Info) Description 01/15/2025 Orders Only [facility] [address] [place] [address] [phone] Gabriela Oliva MD [address] [place] [address] [phone] Type 1 diabetes mellitus with hyperglycemia (CMS/HCC) (Primary Dx) Social History Tobacco Use Types Packs/Day Years [...] AM EDT documented as of this encounter Plan of Treatment Upcoming Encounters Date Type Department Care Team (Late st Contact Info) Description 03/01/2025 3:00 PM EDT Medication Management [facility] 230 [place] [address] Gloria Garcia, Jody 230 [place] [address] 03/21/2025 10:30 AM EDT Office Visit [facility] 230 [place] [address] [place], [facility] 230 [place] [address] Scheduled Referrals Name Type Priority Associated Diagnoses Orde r Schedule Referral to Pharmacy CDTM Outpatient Referral Routine Type 1 diabetes mellitus with hyperglycemia (CMS/HCC) Ordered: 01/15/2025 documented as of this encounter Visit Diagnoses Diagnosis Type 1 diabetes mellitus with hyperglycemia (CMS/HCC)- Primary documented in this encounter Additional Health Concerns Assessment Noted Time PHQ-9 Depression Total Score: 24 025 1:54 PM EST documented as of this encounter Care Teams Online Trader Relationship Specialty Start Date End Date [facility] 230 [place] [address] PCP - General Family Medicine 09/22/22 Gloria Garcia PharmD [address] [place] [address] Pharmacist Internal Medicine 02/12/25 documented as of this encounter
--- OUTSIDE RECORDS SUMMARY | 2025-02-27 15:56 | XMS_ITS | Encounter Summary ---
Author Organization [employer] Address 75 [facility] 7t [place] [address] Care Team Providers Care Utility Technician Name Role Phone [place] [facility] Primary Care Provider [phone] Gloria Garcia PharmD Unavailable [phone] Reason for Visit * Reason Onset Date Comments TRIAGE 02/17/2023 Encounter Details Date Type Department Care Team (Late st Contact Info) Description 02/17/2023 Telephone [facility] 230 [place], [place] [phone] [facility] 230 [place] [address] TRIAGE Social History Tobacco Use Types Packs/Day Years Used Date Smoking Tobacco: Never Assessed Sex and Gender Information Value Date Recorded Sex Assigned at Male 08/31/2022 10:40 AM EDT Legal Sex Male 10:40 AM EDT Gender Identity Male 08/31/2022 10:40 AM EDT Sexual Orientation Choose not to disclose 2021 10:40 AM EDT documented as of this encounter Miscellaneous Notes * Telephone Encounter - Steffanie Hurst RN - 02/17/2023 11:31 AM EDT Triage call to Ousmane June of [facility] requested triage for possible UTI. Called Pt x2 with [place] [employer] [place] [id number], Ptdidn't answer, Left voice message x2 to call [facility] triage line at [phone]. * Telephone Encounter - Nora Bruno - 02/17/2023 9:35 AM EDT Symptom: Urination Pain Outcome: Schedule a same-day appointment or talk to a nurse or provider today Reason: No high acuity concerns reported by caller The caller accepted this outcome Please contact [place] at [phone] documented in this encounter Plan of Treatment Upcoming Encounters Date Type Department Care Team (Late st Contact Info) Description 03/01/2025 3:00 PM EDT Medication Management [address] [address] Gloria Garcai PharmD [address] [place] [address] 03/21/2025 10:30 AM EDT Office Visit [facility] [address] [place] [address] Chari De Los Santos FNP [address] [place] [address] documented as of this encounter Visit Diagnoses Not on filedocumented in this encounter Care Teams Utility Technician Relationship Specialty Start Date End Date Chari De Los Santos FNP [address] [place] [address] PCP - General Family Medicine 09/22/22 Gloria Garcia PharmD [address] [place] [address] Pharmacist Internal Medicine 02/12/25 documented as of this encounter
--- OUTSIDE RECORDS SUMMARY | 2025-02-27 15:56 | XMS_ITS | Encounter Summary ---
Author Organization [employer] Address 75 [facility] 7t [place] [address] Care Team Providers Care Integration Aide Name Role Phone [place], [facility] Primary Care Provider [phone] Gloria Garcia PharmD Unavailable [phone] Reason for Visit * Reason Onset Date Comments Tspot order 02/27/2025 Encounter Details Date Type Department Care Team ([facility] st Contact Info) Description 02/27/2025 Telephone [facility] 230 [place], [place] [phone] [facility] 230 [place], [place] [phone] Tspot order Social History Tobacco Use Types Packs/Day Years [...] encounter Miscellaneous Notes * Telephone Encounter - Nataliya Matias RN - 02/27/2025 1:43 PM EDT Patient walked in requesting Tspot order for employment. RN has placed Tspot order and patient was directed to the lab. documented in this encounter Plan of Treatment Upcoming Encounters Date Type Department Care Team (Late st Contact Info) Description 03/01/2025 3:00 PM EDT Medication Management [facility] [address] [place] [phone] Gloria Garcia, PharmD 230 [place] [address] 03/21/2025 10:30 AM EDT Office Visit [facility] [address] [place] [address] Magali, Chari, AUTO TESTER [address] [place] [address] Scheduled Orders Name Type Priority Associated Diagnoses Orde r Schedule T-SPOT??.TB Lab Routine Encounter for screening for respiratory tuberculosis Expected: 02/27/2025 (Approximate), Expires: 02/27/2026 documented as of this encounter Visit Diagnoses Diagnosis Encounter for screening for respiratory tuberculosis documented in this encounter Additional Health Concerns Assessment Noted Time PHQ-9 Depression Total Score: 24 025 1:54 PM EST documented as of this encounter Care Teams Integration Aide Relationship Specialty Start Date End Date Chari De Los Santos FNP 230 [place] [address] PCP - General Family Medicine 09/22/22 Gloria Garcia PharmD [address] [place] [address] Pharmacist Internal Medicine 02/12/25 documented as of this encounter
[2025-02-27 16:10] LABS: Basophils Percent Auto 0.5 % (0-2); Eosinophils Percent Auto 0.1 % (0-4); Hematocrit 35.7 % (42.0-52.0); Hemoglobin 11.2 g/dl (14.0-18.0); Imm Gran Abs Auto 0.02 X10*3/uL (0.00-0.03); Imm Gran Pct Auto 0.3 % (0.0-0.4); Lymphocytes Absolute Auto 1.7 X10*3/uL (1.2-4.9); Lymphocytes Percent Auto 22.6 % (20-40); MANUAL DIFF FLAG SCAN; Mean Corpuscular HGB Conc 31.4 g/dl (31.0-36.0); Mean Corpuscular Hemoglobin 24.9 pg (27.0-33.0); Mean Corpuscular Volume 79.3 fL (80.0-98.0); Mean Platelet Volume 10.1 fL (9.4-12.4); Monocytes Absolute Auto 0.4 X10*3/uL (0.1-1.2); Monocytes Percent Auto 4.9 % (2-11); Neutrophils Absolute Auto 5.3 x10*3/uL (2.0-8.3); Neutrophils Percent Auto 71.6 % (45-73); PLT CLUMP 1; Red Cell Distribution Width 16.7 % (11.0-16.0); SCAN SMEAR FLAG 1
[2025-02-27 16:20] LABS: Anion Gap 12 (12-20)
[2025-02-27 16:21] LABS: Alanine Aminotransferase 69 U/L (0-40); Alkaline Phosphatase 318 U/L (39-117); Aspartate Amino Transferase 72 U/L (5-37); Bilirubin Direct < 0.2 mg/dL (0.0-0.5); Bilirubin Total 0.2 mg/dL (0.0-1.0); Blood Urea Nitrogen 16 mg/dL (9-16); Calcium 9.5 mg/dL (8.4-10.2); Carbon Dioxide 28 mmol/L (22-29); Chloride 102 mmol/L (96-108); Estimated Glomerular Filt Rate > 60; Glucose Random 192 mg/dL (60-115); Iron 47 mcg/dL (45-160); Percent Iron Saturation 12 % (15-50); Potassium 4.4 mmol/L (3.3-5.1); Sodium 138 mmol/L (135-145); Total Iron Binding Capacity 399 mcg/dL (228-428); Total Protein 7.7 g/dL (6.5-8.0); Unsaturated Iron Binding 352 ug/dL
[2025-02-27 16:43] LABS: Platelet Count 300 X10*3/uL (160-400); White Blood Count 7.4 X10*3/uL (4.8-10.8)
[2025-02-27 16:44] LABS: SLIDE REVIEW VERIFIED
[2025-02-27 17:38] LABS: Ferritin 23 ng/mL (20-250); Gamma Glutamyl Transpeptidase 446 U/L (11-51)
[2025-02-27 17:39] LABS: Magnesium 1.3 mg/dL (1.6-2.6)
[2025-03-01 22:22] LABS: TS Negative Control Passed; TS Panel A 0; TS Panel B 0; TS Positive Control Passed; TSpotTB Negative (Negative)
[2025-03-02 21:24] LABS: Alk.Phos Iso. Macrohepatic 17 % (<=0); Alk.Phos Isoenzymes Bone 25 % (28-66); Alk.Phos Isoenzymes Intest 0 % (1-24); Alk.Phos Isoenzymes Liver 58 % (25-69); Alk.Phos Isoenzymes Placental 0 % (<=0); Alk.Phos Isoenzymes Total 296 U/L (36-130)
== END 2025-02-27 13:48 | disposition home or self-care (01) ==
LOC: HO.HHCL 13:47
PROVIDERS: Visit Provider Registered Nurse
DX: R74.8 Abnormal levels of other serum enzymes (principal); E11.65 Type 2 diabetes mellitus with hyperglycemia; Z79.4 Long term (current) use of insulin; E83.42 Hypomagnesemia; Z11.1 Encounter for screening for respiratory tuberculosis
CPT/HCPCS: 36415; 80053; 82248; 82728; 82977; 83540; 83735; 84080; 85025; 86481

== ENCOUNTER 2025-03-21 11:37 | Outpatient (REF) | payer MEDICAID, SELFPAY ==
--- OUTSIDE RECORDS SUMMARY | 2025-03-21 12:56 | XMS_ITS | Encounter Summary ---
Author Organization [employer] Address 75 [facility] 7t [place] [address] Care Team Providers Care Telecommunication Systems Designer Name Role Phone Chari De Los Santos [employer] MOLD SAND[employer] Primary Care Provider [phone] Gloria Garcia PharmD Unavailable [phone] Encounter Details Date Type Department Care Team (Latest Contact Info) Description 03/21/2025 Travel Social History Tobacco Use Types Packs/Day Years [...] Answer Date Recorded Patient Health Questionnaire-9 Score 2 03/21/2025 Patient Health Questionnaire-9 Score 2 03/21/2025 Last PHQ-9: Questionnaire Data Not on file 0 03/21/2025 Housing Stability Answer Date Recorded What is [...] Answer Date Recorded Patient Health Questionnaire-2 Score 2 03/21/2025 Internet Access Answer Date Recorded Internet Access Q1 Yes 01/05/2025 Internet Access Q2 Not on file 01/05/2025 Sex and Gender Information Value Date Recorded Sex Assigned at Male 08/31/2022 10:40 AM EDT Legal Sex Male 10:40 AM EDT Gender Identity Male 08/31/2022 10:40 AM EDT Sexual Orientation Choose not to disclose 2021 10:40 AM EDT documented as of this encounter Functional Status * Over the past 2 weeks, how often have you been bothered by any of the following problems? Question Answer Date of Assessment Author Patient Health Questionnaire-2 Score 2 03/21/2025 11:00 AM EDT Beth Pinzon MA * Little interest or pleasure in doing things Answer Date of Assessment Author Several days 03/21/2025 11:00 AM EDT Beth France MA * Feeling down, depressed, or hopeless Answer Date of Assessment Author Several days 03/21/2025 11:00 AM EDT Beth France MA * Trouble falling or staying asleep, or sleeping too much Answer Date of Assessment Author Not at all 03/21/2025 11:00 AM EDT Beth France MA * Feeling tired or having little energy Answer Date of Assessment Author Not at all 03/21/2025 11:00 AM EDT Beth France MA * Poor appetite or overeating Answer Date of Assessment Author Not at all 03/21/2025 11:00 AM EDT Beth France MA * Feeling bad about yourself - or that you are a failure or have let yourself or your family down Answer Date of Assessment Author Not at all 03/21/2025 11:00 AM EDT Beth France MA * Trouble concentrating on things, such as reading the newspaper or watching television Answer Date of Assessment Author Not at all 03/21/2025 11:00 AM EDT Beth France MA * Moving or speaking so slowly that other people could have noticed? Or the opposite - being so fidgety or restless that you have been moving around a lot more than usual. Answer Date of Assessment Author Not at all 03/21/2025 11:00 AM EDT Beth France MA * Thoughts that you would be better off or hurting yourself in some way Answer Date of Assessment Author Not at all 03/21/2025 11:00 AM EDT Beth France MA * Patient Health Questionnaire-9 Score Answer Date of Assessment Author 2 03/21/2025 11:00 AM EDT Beth France MA * How difficult have these problems made it for you to do your work, take care of things at home, or get along with other people? Answer Date of Assessment Author Somewhat difficult 03/21/2025 11:00 AM EDT Beth العلي MA documented as of this encounter Plan of Treatment Upcoming Encounters Date Type Department Care Team (Late st Contact Info) Description 04/13/2025 10:00 AM EDT Nutrition [facility] DIABETES/NUTRITION [address] [place] [address] Giselle Childers, RD 230 [place] [address] 05/09/2025 2:30 PM EDT Office Visit [facility] MEDICINE [address] [place] [address] Aquilla, Chari, AUTOMATIC MOLD SANDER 230 [place] [address] 05/28/2025 3:00 PM EDT Medication Management [facility] MEDICINE [address] [place] [address] Gloria Garcia, YovannyD [address] [place] [address] documented as of this encounter Visit Diagnoses Not on filedocumented in this encounter Additional Health Concerns Assessment Noted Time PHQ-9 Depression Total Score: 2 03/21/20 25 11:00 AM EDT documented as of this encounter Care Teams Telecommunication Systems Designer Relationship Specialty Start Date End Date Chari De Los Santos FNP [address] [place] [address] PCP - General Family Medicine 09/22/22 Gloria Garcia PharmD [address] [place] [address] Pharmacist Internal Medicine 02/12/25 documented as of this encounter
--- OUTSIDE RECORDS SUMMARY | 2025-03-21 12:56 | XMS_ITS | Encounter Summary ---
Author Organization [employer] Address 75 [facility] 7t [place] [address] Care Team Providers Care Barrel Rifler Operator Name Role Phone Magali [facility] Primary Care Provider [phone] Gloria Garcia PharmD Unavailable [phone] Reason for Visit * Reason Onset Date Comments Referral 03/19/2025 Encounter Details Date Type Department Care Team ([facility] st Contact Info) Description 03/19/2025 Telephone [facility]ICINE 230 [place], [place] [phone] [place] [facility] 230 [place] [address] Referral Social History Tobacco Use Types Packs/Day Years [...] Telephone Encounter - Gladis Avelar MA - 03/19/2025 11:05 AM EDT Contacted pt in regards to Nutrition referral, s/c pt for April 13 @10AM. Pt agreed to date/time. LB documented in this encounter Plan of Treatment Upcoming Encounters Date Type Department Care Team (Late st Contact Info) Description 04/13/2025 10:00 AM EDT Nutrition [facility] DIABETES/NUTRITION [address] [place] [address] Giselle Childers, JUVENAL 230 [place] [address] 05/09/2025 2:30 PM EDT Office Visit [facility]ICINE [address] [place] [address] Chari De Los Santos FNP 230 [place] [address] 05/28/2025 3:00 PM EDT Medication Management [facility]ICINE 230 [place] [address] Gloria Garcia, Jody [address] [place] [address] documented as of this encounter Visit Diagnoses Not on filedocumented in this encounter Additional Health Concerns Assessment Noted Time PHQ-9 Depression Total Score: 24 01/05/ 025 1:54 PM EST documented as of this encounter Care Teams Barrel Rifler Operator Relationship Specialty Start Date End Date Chari De Los Santos FNP [address] [place] [address] PCP - General Family Medicine 09/22/22 Gloria Garcia, Jody [address] [place] [address] Pharmacist Internal Medicine 02/12/25 documented as of this encounter
--- OUTSIDE RECORDS SUMMARY | 2025-03-21 12:56 | XMS_ITS | Encounter Summary ---
Author Organization [employer] Address 75 [facility] 7t [place] [address] Care Team Providers Care Handyperson Name Role Phone Magali Chari PHLEBOTOMY LAB ASSISTANT Primary Care Provider [phone] Gloria Garcia PharmD Unavailable [phone] Encounter Details Date Type Department Care Team ([facility] st Contact Info) Description 02/27/2025 Orders Only [facility] MED & PEDS [address] [place] [address] Alicja Becerril MD [address] [place] [address] Social History Tobacco Use Types Packs/Day Years [...] Info) Description 04/13/2025 10:00 AM EDT Nutrition [facility] DIABETES/NUTRITION [address] [place] [address] Giselle Childers, JUVENAL 230 [place] [address] 05/09/2025 2:30 PM EDT Office Visit [facility] MEDICINE [address] [place] [address] MagaliChari woodard, PHLEBOTOMY LAB ASSISTANT [address] [place] [address] 05/28/2025 3:00 PM EDT Medication Management [facility] MEDICINE [address] [place] [address] Gloria Garcia, YovannyD [address] [place] [address] documented as of this encounter Visit Diagnoses Not on filedocumented in this encounter Additional Health Concerns Assessment Noted Time PHQ-9 Depression Total Score: 24 025 1:54 PM EST documented as of this encounter Care Teams Handyperson Relationship Specialty Start Date End Date Chari De Los Santos PHLEBOTOMY LAB ASSISTANT [address] [place] [address] PCP - General Family Medicine 09/22/22 Gloria Garcia PharmD [address] [place] [address] Pharmacist Internal Medicine 02/12/25 documented as of this encounter
--- OUTSIDE RECORDS SUMMARY | 2025-03-21 12:56 | XMS_ITS | Encounter Summary ---
Author Organization [employer] Address 75 [facility] 7t [place] [address] Care Team Providers Care Thumb Sewer Name Role Phone [place] [facility] Primary Care Provider [phone] Gloria Garcia PharmD Unavailable [phone] Reason for Visit * Reason Onset Date Comments Medication Question 04/15/2023 Encounter Details Date Type Department Care Team ([facility] st Contact Info) Description 04/15/2023 Telephone [facility]ICINE 230 [place], [place] [phone] [place] [facility] 230 [place] [address] Medication Question Social History Tobacco Use Types [...] - 04/15/2023 4:11 PM EDT T/C to [phone] for below message through [employer] id - [id number]. Pt. States he was prescribe freestyle rissa sensor from Dr. Fitzgerald Ldr Rn. Pt. Advised to give call to Ldr Rn. Pt. Verbally agreed and understood. [place] team advised to schedule TP apt. * Telephone Encounter - Sona Garcia - 04/15/2023 3:15 PM EDT Tc from patient requesting a med refill for a freestyle rissa sensor. Patient hasn't been seen withnew PCP. Environmental Health Specialist attempted to schedule TP appt but no available appt at this time. Please advise. documented in this encounter Plan of Treatment Upcoming Encounters Date Type Department Care Team (Late st Contact Info) Description 04/13/2025 10:00 AM EDT Nutrition [facility] DIABETES/NUTRITION [address] [place] [address] [place] [address] 05/09/2025 2:30 PM EDT Office Visit [facility] MEDICINE [address] [place] [address] Chari De Los Santos FNP 230 [place] [address] 05/28/2025 3:00 PM EDT Medication Management [facility] MEDICINE [address] [place] [address] Gloria Garcia PharmD [address] [place] [address] documented as of this encounter Visit Diagnoses Not on filedocumented in this encounter Care Teams Thumb Sewer Relationship Specialty Start Date End Date Chari De Los Santos FNP [address] [place] [address] PCP - General Family Medicine 09/22/22 Gloria Garcia PharmD [address] [place] [address] Pharmacist Internal Medicine 02/12/25 documented as of this encounter
--- OUTSIDE RECORDS SUMMARY | 2025-03-21 12:56 | XMS_ITS | Encounter Summary ---
Author Organization [employer] Address 75 [facility] 7t [place] [address] Care Team Providers Care Brim Molder Name Role Phone Magali, [facility] Primary Care Provider [phone] Gloria Garcia PharmD Unavailable [phone] Reason for Visit * Reason Onset Date Comments chart prep 03/20/2025 Encounter Details Date Type Department Care Team ([facility] st Contact Info) Description 03/20/2025 Telephone [facility] MEDICINE 230 [place], [place] [phone] [place] [facility] 230 [place], [place] [phone] chart prep Social History Tobacco Use Types Packs/Day Years [...] encounter Miscellaneous Notes * Telephone Encounter - Beth Sawyer MA - 03/20/2025 1:10 PM EDT Chart Prep Labs: not done Images: US scheduled for 03/29/25 Referrals: complete Vaccines due: PCV20 Screenings: eye exam Overdue care gaps: A1c, Glucose, SBIRT, PHQ-9, KAYLEIGH-7, Disability screen, and Tobacco documented in this encounter Plan of Treatment Upcoming Encounters Date Type Department Care Team (Late st Contact Info) Description 04/13/2025 10:00 AM EDT Nutrition [facility] DIABETES/NUTRITION 230 [place], [place] [phone] Giselle [address]ers [address] [place] [address] 05/09/2025 2:30 PM EDT Office Visit [facility] MEDICINE [address] [place], [place] [phone] Chari De Los Santos FNP [address] [place] [address] 05/28/2025 3:00 PM EDT Medication Management [facility] MEDICINE [address] [place] [address] Gloria Garcia PharmD [address] [place] [address] documented as of this encounter Visit Diagnoses Not on filedocumented in this encounter Additional Health Concerns Assessment Noted Time PHQ-9 Depression Total Score: 24 025 1:54 PM EST documented as of this encounter Care Teams Brim Molder Relationship Specialty Start Date End Date Chari De Los Santos FNP [address] [place] [address] PCP - General Family Medicine 09/22/22 Gloria Garcia PharmD [address] [place] [address] Pharmacist Internal Medicine 02/12/25 documented as of this encounter
--- OUTSIDE RECORDS SUMMARY | 2025-03-21 12:56 | XMS_ITS | Clinical Summary ---
Author Organization [facility] Address [address] [place] [address] Care Team Providers Care Asparagus Cutter Name Role Phone Nghia Velez Primary Care Provider [phone] Source Comments PLEASE NOTE, if this patient [...] today. Pt was assisted with refill medication digital media planner box,for one week. No medication requiring refill.Patient was educated on the importance of medication compliance, and to report any adverse effect.Patient verbalized understanding. Pt was reminded of PCP appointment this at 3:30 pm at [address] [place] [address] with Nghia Velez. Assessment & Plan (10/26/2024 1:44 PM EST): Patient was seen for medication management: Reported compliance with current meds, denies experiencing any adverse side effects. Pt was assisted with medication digital media planner box refill,for one week. No medication requiring refill today. Patient was educated on the importance of medication compliance, and to report any adverse effect, from medications. Patient verbalized understanding. Stimulant use disorder 10/23/2024 Assessment & Plan (11/02/2024 5:11 PM EST): [facility], currently sober from cocaine Dyslipidemia 10/23/2024 Cocaine abuse ([facility]) 10/23/2024 Nicotine dependence, unspecified, uncomplicated 04/21/2024 Assessment & Plan (10/23/2024 9:22 PM EST): Pt. counseled about his smoking, does not want to quit at this time. Risks of smoking reviewed with patient. Advised regarding various cessation methods. 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 ? MAT did not have that conversation at this time. Unsteadiness on feet 04/10/2024 Anxiety 04/16/2023 Depressive disorder 12/24/2021 Assessment & Plan (11/02/2024 5:10 PM EST): PHQ-9 Total Score (Auto Calculated) (!) 12 at 10/26/2024 9:44 AM KAYLEIGH 7 Score: 10/26/2024 9:44 AM KAYLEIGH-7 Total (!) 13 Meds bridged by RELATIONSHIP MANAGEMENT LEAD Given [facility] intake info Type 2 diabetes mellitus ([facility]) 09/16/2021 Overview (11/02/2024): 01/07/2010: HbA1c 7.0 [...] monitor wt.Pt was educated on use of detention glucometer, and the sliding scale procedure, hand written for Pt.will continue training patient weekly. Patient verbalized understanding.Reminded Pt and detention staff of Pt's PCP appointment today at 3:30 pm. Assessment & Plan (10/26/2024 1:40 PM EST): Patient is diabetics, and fingerstick blood sugar check was 350, Patient reported that he had muffin for breakfast. Was encouraged to speak with the staff regarding being Diabetic, and to avoid sugary foods. Nursing Home staff was also educated on this.Reported compliance [...] educated on use of insulin sliding scale, detention glucometer, until sees PCP on 11/02/24. and [...] for 4 days.) Recently admitted 09/11/24 to [facility] in [place] (where he is from) for DKA. Has [...] possibly. Made appt for PCP initiation at [facility] on 11/02/24 with Nghia BIRCH. 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) 10/23/2024 11/02/2024 Immunizations Immunization Administration Dates Next Due Flu, Multi Dose 0.5 ML 09/18/2016,08/21/2016 Flu, Preservative Free 09/28/2023,07/21/2023 Hep B,adult,adjuvanted (HEPLISAV) 10/31/2024 INFLUENZA, SEASONAL, INJECTABLE 09/27/2023,02/08 INFLUENZA, SEASONAL, INJECTABLE, PRESERVATIVE FR EE 10/26/2024 Moderna COVID-19 (Spikevax), Mrna, Lnp-s, Pf, 50 Mcg/0.5 Ml, 12yr+ 10/26/2024 PNEUMOCOCCAL POLYSACCHARIDE PPV23 (Pneumovax 23) 02/08/2014 Pfizer COVID-19 (Comirnaty), Mrna, Lnp-s, Pf, [...] Health Maintenance Due Date Last Done Comments Urine Albumin Creatinine Rat io Screening 1986 Retinopathy Screening 1999 Imm-Pneumococcal (2 of 2 - PCV) 02/08/2015 4 Alcohol and Drug Screen 11/01/2024 Imm-Hepatitis B (2 of 2 - Cp G 2-dose series) 11/28/2024 10/31/2024 Depression Monitoring 01/24/2025 10/26/2024 Diabetes HbA1c 02/27/2025 11/29/2024, 10/02, 09/12/2024, Additional history exists Anxiety Screening 10/26/2025 10/26/2024 Diabetes Foot Exam 11/02/2025 11/02/2024 Tobacco Cessation Counseling (#1) 11/02/2025 11/02/2024, 10/31/2024, 10/26/2024, Additional history exists LTBI Screening (#1) 11/08/2025 11/08/2024 Lipid Screening 11/08/2025 11/08/2024, 03/21/2024 Serum Creatinine 01/19/2026 01/19/2025, , 12/21/2024, Additional history exists Hypertension Screening (#1) 11/02/2027 Imm-DTaP/Tdap/Td (2 - Td or Tdap) 03/20/2034 024 [id number] Completed 10/26/2024, 11/01, 11/16/2022, Additional history exists [...] current use of insulin, unspecified CKD stage ([facility]) CKD stage 3a, GFR 45-59 ml/min ([facility]) Stimulant use disorder HEPATITIS C AB W/RFLX HCV RNA, QT, RT PCR Routine 11/08/2024 11:29 AM EST Stimulant use disorder LIPID PANEL Routine 11/08/2024 11:29 AM EST Type 2 diabetes mellitus with chronic kidney disease, with long-term current use of insulin, unspecified CKD stage ([facility]) from Last 3 Months or Most Recently Relevant to Health Maintenance Results * QUANTIFERON-TB GOLD PLUS (11/08/2024 11:29 AM EST) Pathologist [facility] QUANTIFERON NEGATIVE NEGATIVE [facility] Comment: Negative test result. M. tuberculosis complex infection unlikely. NIL 0.03 IU/mL [facility] MITOGEN-NIL 8.40 IU/mL [facility] TB1-NIL 0.01 IU/mL [facility] TB2-NIL 0.00 IU/mL [facility] Comment: The Nil tube value reflects the [...] T-lymphocytes. For additional information, please refer to https://[place]a.[employer]/faq/ZJS016 (This link is being provided for informational/ educational purposes only.) Blood Blood / Unknown 11/08/2024 1 1:29 AM EST 11/08/2024 11:30 AM EST Nghia BIRCH LAB - BLOOD DRAW Final Result [facility] [address] [address], [facility] [address] [address] * Hep C AB w/reflex to HCV RNA (11/08/2024 11:29 AM EST) HEPATITIS C ANTIBODY NON-REACT TAMEKA NON-REACT TAMEKA [facility] Comment: HCV antibody was non-reactive. There is no laboratory evidence of HCV infection. In most cases, no further action is required. However, if recent HCV exposure is suspected, a test for HCV RNA (test code 19969) is suggested. For additional information please refer to http://[place]/faq/BAW07s5 (This link is being provided for informational/ educational purposes only.) Blood Blood / Unknown 11/08/2024 1 1:29 AM EST 11/08/2024 11:30 AM EST us Nghia BIRCH LAB - BLOOD DRAW Edited Result - Final Performing Organization Address [facility]/ZIP Co de Phone Number [facility] [address] [address], [facility] [address] [address] * HIV-1/2 AB and AG (11/08/2024 11:29 AM EST) HIV AG/AB, 4TH GEN NON-REAC TIVE NON-REAC TIVE [facility] Comment: HIV-1 antigen and HIV-1/HIV-2 antibodies [...] ?? For additional information please refer to http://education.[employer]/faq/TMJ750 (This link is being provided for informational/ educational purposes only.) The performance of this assay has not been clinically validated in patients less than 2 years old. Blood Blood / Unknown 11/08/2024 1 1:29 AM EST 11/08/2024 11:30 AM EST us Nghia BIRCH LAB - BLOOD DRAW Final Result Performing Organization Address [facility]/ZIP Co de Phone Number [facility] [address] [address], [facility] [address] [address] * (ABNORMAL) Lipid Panel (11/08/2024 11:29 AM EST) CHOLESTEROL, TOTAL 207(H) <200 mg/dL [facility] HDL CHOLESTEROL 84 > OR = 40 mg/dL [employer] TRIGLYCERIDES 113 <150 mg/dL [facility] LDL-CHOLESTEROL 102(H) 99 mg/dL (calc) [facility] Comment: Reference range: <100 Desirable range <100 mg/dL for primary prevention; ?? <70 mg/dL for patients with CHD or diabetic patients with > or = 2 CHD risk factors. LDL-C is now calculated using the Elaine calculation, which is a validated novel method providing better accuracy than the Friedewald equation in the estimation of LDL-C. Leif SS et al. MUNIRA. 2013;310(19): 6029-9446 (http://education.[employer]/faq/PWQ212) CHOL/HDLC RATIO 2.5 <5.0 (calc) [facility] NON-HDL CHOLESTEROL 123 <130 mg/dL (calc) [facility] Comment: For patients with diabetes plus 1 major ASCVD risk factor, treating to a non-HDL-C goal of <100 mg/dL (LDL-C of <70 mg/dL) is considered a therapeutic option. Blood Blood / Unknown 11/08/2024 1 1:29 AM EST 11/08/2024 11:30 AM EST Nghia BIRCH LAB - BLOOD DRAW Final Result Performing Organization Address City/State/[facility] Co de Phone Number [facility] [employer] [address] [place] [address], [facility] [address] [address] * (ABNORMAL) Comprehensive Metabolic Panel (11/08/2024 11:29 AM EST) GLUCOSE 212(H) 65 - 99 mg/dL [facility] Comment: ?Fasting reference interval For someone without known diabetes, a glucose value >125 mg/dL indicates that they may have diabetes and this should be confirmed with a follow-up test. UREA NITROGEN (BUN) 22 7 - 25 mg/dL [employer] CREATININE (blood) 1.36(H) 0.60 - 1.26 mg/dL [employer] [employer] EGFR 68 > OR = 60 mL/min/1. 73m2 [employer] BUN/CREATININE RATIO 16 6 - 22 (calc) [facility] SODIUM 137 135 - 146 mmol/L [facility] POTASSIUM 4.7 3.5 - 5.3 mmol/L [facility] CHLORIDE 96(L) 98 - 110 mmol/L [facility] CARBON DIOXIDE 38(H) 20 - 32 mmol/L [facility] CALCIUM 10.1 8.6 - 10.3 mg/dL [facility] PROTEIN, TOTAL 7.4 6.1 - 8.1 g/dL [facility] ALBUMIN 4.3 3.6 - 5.1 g/dL [facility] GLOBULIN 3.1 1.9 - 3.7 g/dL (calc) [facility] ALBUMIN/GLOBULI N RATIO 1.4 1.0 - 2.5 (calc) [facility] BILIRUBIN, TOTAL 0.4 0.2 - 1.2 mg/dL [facility] ALKALINE PHOSPHATASE 551(H) 36 - 130 U/L [facility] AST 80(H) 10 - 40 U/L [facility] ALT 119(H) 9 - 46 U/L [facility] Blood Blood / Unknown 11/08/2024 1 1:29 AM EST 11/08/2024 11:30 AM EST Nghia BIRCH LAB - BLOOD DRAW Edited Result - Final [facility] [address] [address], [facility] [address] [address] from Last 3 Months or Most Recently Relevant to Health Maintenance Insurance [place] MEDICAID [facility] Care Teams Asparagus Cutter Relationship Specialty Start Date End Date Nghia Velez [place] [address] [place] [address] PCP - General FAMILY MEDICINE, [place] 11/02/24
--- OUTSIDE RECORDS SUMMARY | 2025-03-21 12:56 | XMS_ITS | Encounter Summary ---
Author Organization [employer] Address [address] [facility] 7t [place] [address] Care Team Providers Care Cart Pusher Name Role Phone [facility] Primary Care Provider [phone] Gloria Garcia PharmD Unavailable [phone] Reason for Visit * Reason Onset Date Comments TRIAGE 02/17/2023 Encounter Details Date Type Department Care Team ([facility] st Contact Info) Description 02/17/2023 Telephone [facility] MEDICINE [address], [place] [phone] [facility] [address] [place] [address] TRIAGE Social History Tobacco Use Types Packs/Day [...] for possible UTI. Called Pt x2 with [facility] Coding Technician ID [id number], Ptdidn't answer, Left voice message x2 to call [facility] triage line at [phone]. * Telephone Encounter - Nora Bruno - 02/17/2023 9:35 AM EDT Symptom: Urination Pain Outcome: Schedule a same-day appointment or talk to a nurse or provider today Reason: No high acuity concerns reported by caller The caller accepted this outcome Please contact [facility] at [phone] documented in this encounter Plan of Treatment Upcoming Encounters Date Type Department Care Team (Late st Contact Info) Description 04/13/2025 10:00 AM EDT Nutrition [facility] DIABETES/NUTRITION [address] [place] [address] Giselle Childers, JUVENAL [address] [place] [address] 05/09/2025 2:30 PM EDT Office Visit [facility] MEDICINE [address] [place] [address] Chari De Los Santos FNP [address] [place] [address] 05/28/2025 3:00 PM EDT Medication Management [facility] MEDICINE [address] [place] [address] Gloria Garcia PharmD [address] [place] [address] documented as of this encounter Visit Diagnoses Not on filedocumented in this encounter Care Teams Cart Pusher Relationship Specialty Start Date End Date Chari De Los Santos FNP [address] [place] [address] PCP - General Family Medicine 09/22/22 Gloria Garcia PharmD [address] [place] [address] Pharmacist Internal Medicine 02/12/25 documented as of this encounter
--- OUTSIDE RECORDS SUMMARY | 2025-03-21 12:56 | XMS_ITS | Encounter Summary ---
Author Organization [employer] Address [address] [facility] 7t [place] [address] Care Team Providers Care Wax Coating Machine Tender Name Role Phone [facility], [facility] Primary Care Provider [phone] Gloria Garcia PharmD Unavailable Reason for Visit * Reason Onset Date Comments Hospital Follow-up 12/22/2024 Encounter Details Date Type Department Care Team ([facility] st Contact Info) Description 12/22/2024 Telephone [facility] MEDICINE [address], [place] [phone] [facility] [address] [place], [place] [phone] Hospital Follow-up Social History Tobacco Use Types [...] pain (right) chest pain *Send message to [place] Clinical Care Coordinators documented in this encounter Plan of Treatment Upcoming Encounters Date Type Department Care Team (Late st Contact Info) Description 04/13/2025 10:00 AM EDT Nutrition [facility] DIABETES/NUTRITION [address] [place] [address] [place] [address] 05/09/2025 2:30 PM EDT Office Visit [facility] MEDICINE [address] [place] [address] Chari De Los Santos FNP [address] [place] [address] 05/28/2025 3:00 PM EDT Medication Management [facility] MEDICINE [address] [place] [address] Gloria Garcia PharmD [address] [place] [address] documented as of this encounter Visit Diagnoses Not on filedocumented in this encounter Additional Health Concerns Assessment Noted Time PHQ-9 Depression Total Score: 0 07/21/20 23 9:21 AM EDT documented as of this encounter Care Teams Wax Coating Machine Tender Relationship Specialty Start Date End Date EwingChari woodard FNP [address] [place] [address] PCP - General Family Medicine 09/22/22 Gloria Garcia PharmD [address] [place] [address] Pharmacist Internal Medicine 02/12/25 documented as of this encounter
--- OUTSIDE RECORDS SUMMARY | 2025-03-21 12:57 | XMS_ITS ---
Author Organization [facility] Address [address] [place], [place] [phone] Care Team Providers Care Health Safety Manager Name Role Phone [facility] Primary Care Provider Geeta Simmons [facility] Encounters Encounter Location Date Provider Diagnosis [facility] [address] [place] [phone] 06/29/2024 Geeta Mclain Plan Of Treatment No Information Progress Notes * Mihai PLASCENCIADOB:01/1985 (39 yo M)Acc No.[id number]:06/29/2024 Case Management Patient:?ANGEL DennyQUEHe COOPER Provider:Naomie Mclain :1985???Age:39 Y???Sex:Male Micah e:06/29/2024 Address:[address], [address] Pcp:[facility] Subjective: * Chief Complaints: * ??? * Medical History:? Objective: Assessment: Plan: * Treatment: * Images: Billing Information: * Visit Code:? * Procedure Codes:? Care Plan Details* * Electronic signature of Devon Mclain on 03/21/2025 at 12:56 PM EDT Sign off status: Pending * Provider:Naomie Mclain Date:? Generated for Brunilda alarcon/Hernan/Guillermo on:?03/21/2025 12:56 PM EDT
--- OUTSIDE RECORDS SUMMARY | 2025-03-21 12:57 | XMS_ITS | Patient Health Record ---
Author Organization [facility] Address [address] [place], [place] [phone] Care Team Providers Care Turkish Line Attendant Name Role Phone [facility] Primary Care Provider Geeta Simmons Unavailable [phone] Reason For Referral No Information Medications Medication SIG (Take, Route, Frequency, Duration) Notes Start Date End Date Status Freestyle [place] Test Strips as directed Test per provider 05/20/2012 Active Sween Cream - 1 renuka applied topica lly 2 times a day for 30 day(s) Active alcohol wipes Alcohol pad wipe finger pr ior to testing blood sugar topical daily before breakfast for 3005/20/2012 Active Freestyle [place] Lancets Lancets test BS daily as directed topical test daily before breakfast for 3005/20/2012 Active Freestyle [place] Lancets Lancets test BS daily as directed topical test daily before breakfast for 3005/20/2012 Active metFORMIN 1000 mg 1 tab(s) orally 2 ti mes a day Active Freestyle [place] Test Strips as directed Test per provider 05/20/2012 Active Freestyle freedom lite blood glucose monitoring system as directed test as directed 05/20/2012 Active alcohol wipes Alcohol pad wipe finger pr ior to testing blood sugar topical daily before breakfast for 3005/20/2012 Active glyBURIDE 1.25 mg 1 tab(s) orally once a day for 30 days Active metFORMIN 1000 mg 1 tab(s) orally 2 ti mes a day Active Sween Cream - 1 renuka applied topica lly 2 times a day for 30 day(s) Active Freestyle freedom lite blood glucose monitoring system as directed test as directed 05/20/2012 Active glyBURIDE 1.25 mg 1 tab(s) orally once a day for 30 days Active Immunizations Vaccine Route Administration Date Status Comme nts PPD negative Unknown 03/11/2011 Administered 0mm negati ve Td Unknown 04/27/2010 Administered PPD planted Unknown 05/20/2012 Administered planted in right forearm due to extensive tattoo on left arm. 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) Active confirmed Problem Nondependent alcohol abuse (063178735) ALCOHOL ABUSE-UNSPEC (305.00) Active confirmed Problem Body mass index 20-24 - normal (857468250) BMI BETWEEN 19-24,ADULT (V85.1) Active confirmed Encounters Encounter Location Date Provider Diagnosis [facility] [address] [place] [phone] 07/10/2024 Geeta Mclain Plan Of Treatment No Information Insurance Providers Payer Name Payer Address Payer Phone Subscriber Number Group Number Insured Name Patient Relationship to Insured Coverage Start Date Coverage End Date [place] Medicaid Standard [address] [place] [address] [phone] [id number] Mihai Vera Self - patient is the insured Medical (General) History Medical History History ICD Code HCM: A1c: 7.6% 05/23/2012 LEAP exam done HIV/Hep tests 05/12 Elevated cholesterol DM dx 2008 Dx in snf [facility]->[facility]->Rickey [facility]st
--- OUTSIDE RECORDS SUMMARY | 2025-03-21 12:57 | XMS_ITS | Encounter Summary ---
Author Organization [employer] Address [address] [place] [address] Care Team Providers Care Equine Science Instructor Name Role Phone Chari De Los Santos [facility] Primary Care Provider [phone] Gloria Garcia PharmD Unavailable [phone] Reason for Visit * Reason Comments Annual Exam Encounter Details Date Type Department Care Team (Latest Contact Info) Description 03/21/2025 10:30 AM EDT Office Visit [facility] [address], [place] [id number] [place] [facility] [address] [place], [place] [phone] Polysubstance abuse (CMS/HCC) (Primary Dx); Type 2 diabetes mellitus with hyperglycemia, with long-term current use of insulin (CMS/HCC); Type 1 diabetes mellitus with hyperglycemia (CMS/HCC); Tinea pedis of right foot Social History Tobacco Use Types Packs/Day Years [...] AM EDT documented as of this encounter Last Filed Vital Signs Vital Sign Reading Time Taken Comments Blood Pressure 107/74 03/21/2025 10:59 AM EDT Pulse 100 03/21/2025 10:59 AM EDT Temperature 36.3 ??C (97.4 ??F) 03/21/2025 10:59 AM E DT Respiratory Rate 20 03/21/2025 10:59 AM EDT Oxygen Saturation - - Inhaled Oxygen Concentration - - Weight 74.5 kg (164 lb 3.2 oz) 03/21/2025 10:59 AM EDT Height 167.6 cm (5' 6 ) 03/21/2025 10:59 AM EDT Body Mass Index 26.5 03/21/2025 10:59 AM EDT documented in this encounter Functional Status * Over the [...] Info) Description 04/13/2025 10:00 AM EDT Nutrition [facility] [address] [place] [address] Giselle Childers, RD [address] [place] [address] 05/09/2025 2:30 PM EDT Office Visit [facility] [address] [place] [address] Magali, Chari, [employer] SAL[employer] [address] [place] [address] 05/28/2025 3:00 PM EDT Medication Management [facility] [address] [place] [address] Gloria Garcia, PharmD [address] [place] [address] Scheduled Orders Name Type Priority Associated Diagnoses Orde r Schedule Hepatitis A Antibody, Total Lab Routine Polysubstance abuse ([facility]/HCC) Expected: 03/21/2025 (Approximate), Expires: 03/21/2026 documented as of this encounter Procedures Procedure Name Priority Date/Time Associated Diagnosis Comments POCT GLYCATED HEMOGLOBIN, TOTAL Routine 03/21/2025 11:32 AM EDT Type 1 diabetes mellitus with hyperglycemia ([facility]/HCC) POCT GLUCOSE Routine 03/21/2025 11:32 AM EDT Type 1 diabetes mellitus with hyperglycemia ([facility]) documented in this encounter Results * (ABNORMAL) POCT HGB A1C (03/21/2025 11:32 AM EDT) Hemoglobin A1C 7.9(A) 4.0 - 6.0 % Blood 03/21/2025 11:3 2 AM EDT [facility] POINT OF CARE TEST ENTER/EDIT ORDERABLES Final Result * POCT Glucose (03/21/2025 11:32 AM EDT) Glucose Blood, POC 121 60 - 200 mg/dL Blood Capillary blood specimen / Unknown 03/21/2025 11:32 AM EDT Result [facility] POINT OF CARE TEST ENTER/EDIT ORDERABLES Final Result documented in this encounter Visit Diagnoses Diagnosis Polysubstance abuse ([facility])- Primary Other, mixed, or unspecified nondependent drug abuse, unspecified Type 2 diabetes mellitus with hyperglycemia, with long-term current use of insulin ([facility]) Type 1 diabetes mellitus with hyperglycemia ([facility]) Tinea pedis of right foot documented in this encounter Additional Health Concerns Assessment Noted Time PHQ-9 Depression Total Score: 2 03/21/20 11:00 AM EDT documented as of this encounter Care Teams Equine Science Instructor Relationship Specialty Start Date End Date [facility] [address] [place] [address] PCP - General Family Medicine 09/22/22 Gloria Garcia PharmD [address] [place] [address] Pharmacist Internal Medicine 02/12/25 documented as of this encounter
--- OUTSIDE RECORDS SUMMARY | 2025-03-21 12:57 | XMS_ITS | Clinical Summary ---
Author Organization [employer] Address [address] [place] [address] Care Team Providers Care Applications Programmer Analyst Name Role Phone [facility] Primary Care Provider [phone] Gloria Garcia PharmD Unavailable [phone] Allergies No known active allergies Medications naloxone (Narcan) 4 mg/0.1 mL nasal spray 12/14/19 24 Active Alcohol Swabs (Alcohol Prep) pads Use prior to checking BS daily 100 each 10/20/20 24 Active Blood Glucose Monitoring Suppl (FreeStyle [place] Lite) w/Device kit Use as directed three times a day 1 kit 10/20/20 24 Active magnesium oxide (Mag-Ox) 400 (240 Mg) MG tablet Take 1 tablet by mouth Once per day. 12/22/19 25 Active sertraline (Zoloft) 50 MG tablet Take 1 tablet by mouth at bedtime. 12/04/19 25 Active BD Pen Needle Aniya U/F 32G X 4 MM miscIndications:T ype 2 diabetes mellitus with hyperglycemia, with long-term current use of insulin ([facility]) USE TO INJECT INSULIN 4 TIMES PER DAY 100 each 11 01/06/20 25 Active glucose blood (FREESTYLE LITE) test stripIndications: Type 2 diabetes mellitus with hyperglycemia, with long-term current use of insulin (CMS/[facility]) Use as directed three times a day 100 each 01/06/20 25 Active Lancets (Unilet GP 28) miscIndications:T ype 2 diabetes mellitus with hyperglycemia, with long-term current use of insulin (CMS/[facility]) Use three times a day as directed 100 each 01/06/20 25 Active clobetasol (Temovate) 0.05 % ointmentIndicatio ns:Skin lesion Apply topically 2 times daily. 30 g 01/06/20 25 Active mupirocin (Bactroban) 2 % ointmentIndicatio ns:Skin lesion Apply topically 2 times daily. 30 g 01/06/20 25 Active gabapentin (Neurontin) 300 MG capsuleIndication s:Type 2 diabetes mellitus with hyperglycemia, with long-term current use of insulin (CMS/HCC) Take 1 capsule (300 mg) by mouth 3 times daily. 90 capsule 01/06/20 25 026 Active Continuous Glucose Sensor (FreeStyle Hung 2 Sensor) miscIndications:T ype 2 diabetes mellitus with hyperglycemia, with long-term current use of insulin (CMS/HCC) Use as directed 2 each 3 01/27/20 25 Active nicotine polacrilex (Nicorette) 4 MG gumIndications:To bacco use Chew 1 each (4 mg) every 1 (one) hour if needed for smoking cessation. 100 each 01/30/20 25 Active acetaminophen (Tylenol) 325 MG tablet Take 650 mg by mouth every 6 (six) hours if needed. Active folic acid (Folvite) 1 MG tablet take 1 tablet by mouth 1 time each day. Active thiamine (Vitamin B-1) 100 MG tablet take 1 tablet by mouth 1 time each day. Active Continuous Glucose Qa Software Test Engineer (FreeStyle Hung 3 [place]) deviceIndications :Type 1 diabetes mellitus with hyperglycemia (CMS/HCC) 1 each Once per day. Use as directed for CGM 1 each 02/13/20 25 Active Continuous Glucose Sensor (FreeStyle Hung 3 Plus Sensor) miscIndications:T ype 1 diabetes mellitus with hyperglycemia (CMS/HCC) Apply 1 every 15 days as directed for CGM 2 each 02/13/20 25 Active glucose blood (FreeStyle Precision Dean Test) test stripIndications: Type 1 diabetes mellitus with hyperglycemia (CMS/HCC) Use to test blood sugar 3 times daily in case of CGM failure or extremes of BG 100 each 02/13/20 25 Active glucose 4 g chewable tabletIndications :Type 2 diabetes mellitus with hyperglycemia, with long-term current use of insulin (CMS/HCC) Chew 4 tablets (16 g) if needed for low blood sugar. 50 tablet 12 02/13/20 25 026 Active insulin lispro (HumaLOG KWIKPEN) 100 UNIT/ML injectionIndicati ons:Type 2 diabetes mellitus with hyperglycemia, with long-term current use of insulin (CMS/HCC) Inject three times daily per sliding scale. 2 units for BS 150-199; 4 units 200-249; 6 units 250-300; 8 units greater than 300 15 mL 3 02/13/20 25 Active insulin glargine (Lantus SoloStar) 100 UNIT/ML penIndications:Ty pe 2 diabetes mellitus with hyperglycemia, with long-term current use of insulin (CMS/HCC) Inject 42 Units under the skin at bedtime. 15 mL 5 02/13/20 25 026 Active clotrimazole (Lotrimin) 1 % creamIndications: Tinea pedis of right foot Apply topically 2 times daily for 28 days. 30 g 5 03/21/20 25 025 Active metFORMIN, OSM, (Fortamet) 1000 MG 24 hr tabletIndications :Type 2 diabetes mellitus with hyperglycemia, with long-term current use of insulin (CMS/HCC) Take 1 tablet (1,000 mg) by mouth with breakfast and with evening meal. Do not crush, chew, or split. 180 tablet 3 02/13/20 25 025 Discontinued Active Problems Problem Noted Date Diagnosed Date Type 1 diabetes mellitus with hyperglycemia 03/02 Dyslipidemia 05/24/2023 Housing instability 05/24/2023 Tachycardia 05/24/2023 Anxiety 04/16/2023 Assessment & Plan (04/16/2023 2:21 PM EDT): Counseling done He uses [facility] but then we call to his fpc and we were able to obtain the information for his clonidine he takes 0.1mg BID Dr Trent prescribes it and it was send to [facility] pharmacy, refilled done Follow up with psychiatrist and therapist Polysubstance abuse 04/16/2023 Overview (08/23/2023): [facility]. Well established with therapist and psychiatrist. Working with recovery program through [facility]. On vivitrol. Assessment & Plan (04/16/2023 [...] Encounters Date Type Department Care Team Description 03/21/2025 10:30 AM EDT Office Visit [address] [address] Chari De Los Santos FNP Polysubstance abuse (CMS/HCC) (Primary Dx); Type 2 diabetes mellitus with hyperglycemia, with long-term current use of insulin ([facility]); Type 1 diabetes mellitus with hyperglycemia (CMS/[facility]); Tinea pedis of right foot 03/21/2025 Travel 03/20/[address] [address] Chari De Los Santos FNP chart prep 03/19/[address] [address] Chari De Los Santos FNP Referral 03/13/2025 Patient Outreach [address] [address] Chari De Los Santos FNP Pre-visit Planning (SDOH screening completed on 01/05/2025) 03/09/[address] [place] [address] [facility] Care Coordination; Results 03/08/2025 Orders Only [facility] [address] [place] [address] [facility] Elevated serum alkaline phosphatase level (Primary Dx) 03/01/2025 Telephone [facility] [address] [place] [address] [facility] 03/01/2025 Patient Outreach [facility] [address] [place] [address] [facility] Care Coordination (CM/CHW outreach) 02/28/2025 Orders Only [facility] [address] [place] [address] [facility] Hypomagnesemia (Primary Dx); Elevated liver enzymes 02/27/2025 Telephone [facility] [address] [place] [address] Alicja Garnica MD 02/27/2025 Orders Only [facility] [address] [place] [address] Alicja Garnica MD 02/27/2025 Orders Only [address] [address] [facility] 02/27/[address] [address] [facility] 02/27/[address] [address] [facility] Tspot order 02/22/2025 Patient Outreach [address] [address] [facility] 02/14/[address] [address] [facility] Prior Authorization ( [place] Request: insulin lispro (HumaLOG KWIKPEN) 100 UNIT/ML injection) 02/13/2025 Patient Outreach [address] [address] [facility] Care Coordination ([facility]- initial assessment/ enrollment. No show. ) 02/12/2025 Patient Outreach [facility] [address], [place] [address] [facility], [facility] 02/12/2025 Patient Outreach [facility] [address] [facility] [place] [place] [address] [facility], [facility] 02/12/2025 Patient Outreach [facility] [address] [facility] [place] [place] [address] [facility] Care Coordination (CM/CHW appt reminder) 02/12/2025 Travel 02/12/2025 Patient Outreach [facility] [address], [place] [address] [facility], [facility] 02/12/2025 Patient Outreach [facility] [address] [facility] [place] [place] [address] [facility], [facility] 02/06/2025 Patient Outreach [facility] [address] [facility] [place] [place] [address] [facility], [facility] 02/06/2025 Patient Outreach [facility] [address] [facility] [place] [place] [address] [facility], [facility] 02/06/2025 Patient Outreach [facility] [address] [facility] [place] [address] [facility], [facility] 01/29/2025 Refill [facility] [address] [facility] [place] [address] [facility] Type 2 diabetes mellitus with hyperglycemia, with long-term current use of insulin ([facility]) 01/29/2025 Patient Outreach [facility] [address] [facility] [place] [place] [address] [facility] 01/29/2025 Patient Outreach [facility] [address] [facility] [address] [facility] Care Coordination (CHW Chart Review) 01/29/2025 Refill [facility] [address] [facility] [address] [facility] Tobacco use 01/29/2025 Patient Outreach [facility] [address] [facility] [place] [address] Chari De Los Santos FNP 01/26/2025 Telephone [facility] [place] [address] Chari De Los Santos FNP Review CGM data 01/26/2025 Orders Only [facility] [address] [facility] [place] [address] Chari De Los Santos FNP 01/25/2025 Patient Outreach [facility] [address] [facility] [place] [address] Chari De Los Santos FNP Care Coordination (CM/CHW outreach) 01/25/2025 Telephone [facility] [place] [address] Chari De Los Santos FNP Prior Authorization ( PA: [employer] Hung 2 Sensor) 01/24/2025 Patient Outreach [address] [place] [place] [address] Chari De Los Santos FNP Error (VOID this visit) 01/24/2025 Patient Outreach [address] [place] [address] Chari De Los Santos FNP 01/22/2025 Telephone [address] [place] [place] [address] Chari De Los Santos FNP 01/22/2025 Telephone [facility] [place] [address] Chari De Los Santos FNP CGM data 01/22/2025 Travel 01/17/2025 Patient Outreach [facility] [place] [address] Chari De Los Santos FNP Care Coordination (CM/CHW outreach) 01/16/2025 Telephone [facility] [place] [address] Chari De Los Santos FNP 01/15/2025 Orders Only [facility] [facility] [place] [address] Gabriela Oliva MD Type 1 diabetes mellitus with hyperglycemia (CMS/HCC) (Primary Dx) 01/12/2025 Population Health Risk Score [facility] ([facility]) [address] [address] Provider, Population Health Generic 01/05/2025 1:30 PM EST Office Visit [address] [address] [facility] Type 2 diabetes mellitus with hyperglycemia, with long-term current use of insulin ([facility]) (Primary Dx); Skin lesion; Hypomagnesemia 01/05/2025 Travel 01/05/2025 Patient Outreach [facility] [address] [place] [address] [facility] Care Coordination (CHW/Cm outreach) 01/04/[address] [address] [facility] Med Refill 01/03/[address] [address] [facility] Medication Question 12/22/2024 Patient Outreach [facility] [address] [place] [address] [facility] Care Coordination (CM/CHW appt) 12/22/2024 Patient Outreach [facility] [address] [place], [place] [phone] [facility] Transition Of Care (Tcm) (HDF scheduled. ) 12/22/[address] [address] [facility] Hospital Follow-up from Last 3 Months Immunizations Immunization Administration Dates Next Due HepB-CpG 10/31/2024 Influenza [...] 20 03/21/2025 10:59 AM EDT Oxygen Saturation 99% 02/12/2025 11:13 AM EDT Inhaled Oxygen Concentration - - Weight 74.5 kg (164 lb 3.2 oz) 03/21/2025 10:59 AM EDT Height 167.6 cm (5' 6 ) 03/21/2025 10:59 AM EDT Body Mass Index 26.5 03/21/2025 10:59 AM EDT Plan of Treatment Upcoming Encounters Date Type Department Care Team (Late st Contact Info) Description 04/13/2025 10:00 AM EDT Nutrition [facility] DIABETES/NUTRITION [address] [place] [address] Giselle Childers, RD [address] [place] [address] 05/09/2025 2:30 PM EDT Office Visit [facility] [address] [place] [address] [place], Chari, DIRECTOR AGRICULTURAL SERVICES [address] [place] [address] 05/28/2025 3:00 PM EDT Medication Management [facility] [address] [place] [address] Gloria Garcia, PharmD [address] [place] [address] Health Maintenance Due Date Last Done Comments Disability Screening 1986 Eye Exam 1996 Alcohol/Substance Use Screening 1998 Family Planning (PISQ) 2001 Pneumococcal Vaccine: Pediatrics (0 to 5 Years) and At-Risk Patients (6 to 49) Years) (2 of 2 - PCV) 02/08/2015 02/08/2014 Hepatitis B Vaccines (2 of 2 - CpG 2-dose series) 11/28/2024 10/31/2024 Diabetes: Foot Exam 03/20/2025 03/20/2024 Diabetes: Urine Protein Screening 03/21/2025 03/21/2024, 07/21/2023, 07/28/2022, Additional history exists Lipid Panel 03/21/2025 03/21/2024, 07/03, 12/25/2021 Diabetes: Hemoglobin A1C 06/21/2025 025, 01/23/2025, 01/19/2025, Additional history exists SDOH Screening 01/05/2026 01/05/2025 Depression Screening 03/21/2026 03/21/2025, 03/21/20 Tobacco Screening 03/21/2026 03/21/2025 DTaP/Tdap/Td Vaccines (2 - Td or Tdap) 03/20/2034 03/20/2024 Zoster Vaccines (1 of 2) 2036 RSV Patients and Patients Aged 60 years or older (1 - 1-dose 75+ series) 2061 Hepatitis C Screening Completed 03/21/2024 , 07/21/2023, 12/25/2021 COVID-19 Vaccine Completed 10/26/2024, , 01/13/2022, Additional history exists Influenza Vaccine Completed 10/26/2024, , 09/28/2023, Additional history exists HIV Screening Completed 11/08/2024, [...] patient's age to complete this topic Meningococcal B Vaccine Aged Out No l onger eligible based on patient's age to complete [...] EDT Type 1 diabetes mellitus with hyperglycemia (CMS/HCC) POCT GLUCOSE Routine 03/21/2025 11:32 AM EDT Type 1 diabetes mellitus with hyperglycemia (CMS/HCC) SLIDE REVIEW Routine 02/27/2025 1:49 PM EDT T-SPOT(R).TB Routine 02/27/2025 1:49 PM EDT Encounter for screening for respiratory tuberculosis MAGNESIUM Routine 02/27/2025 1:49 PM EDT Hypomagnesemia FERRITIN Routine 02/27/2025 1:49 PM EDT Type 2 diabetes mellitus with hyperglycemia, with long-term current use of insulin (CMS/HCC) IRON AND TOTAL IRON BINDING CAPACITY Routine 02/27/2025 1:49 PM EDT Type 2 diabetes mellitus with hyperglycemia, with long-term current use of insulin (CMS/HCC) CBC WITH AUTO DIFFERENTIAL Routine 02/27/2025 1:49 PM EDT Type 2 diabetes mellitus with hyperglycemia, with long-term current use of insulin (CMS/HCC) COMPREHENSIVE METABOLIC PANEL Routine 02/27/2025 1:49 PM EDT Type 2 diabetes mellitus with hyperglycemia, with long-term current use of insulin (CMS/HCC) ALKALINE PHOSPHATASE, ISOENZYMES Routine 02/27/2025 1:49 PM EDT Elevated serum alkaline phosphatase level GGT Routine 02/27/2025 1:49 PM EDT Elevated serum alkaline phosphatase level HEPATIC FUNCTION PANEL Routine 02/27/2025 1:49 PM EDT Elevated serum alkaline phosphatase level POCT GLYCATED HEMOGLOBIN, TOTAL Routine 01/05/2025 1:56 PM EST Type 2 diabetes mellitus with hyperglycemia, with long-term current use of insulin ([facility]/HCC) POCT GLUCOSE Routine 01/05/2025 1:56 PM EST Type 2 diabetes mellitus with hyperglycemia, with long-term current use of insulin (CMS/[facility]) LIPID PANEL, STANDARD Routine 03/21/2024 9:21 AM EDT Type 2 diabetes mellitus with hyperglycemia, with long-term current use of insulin ([facility]) HEPATITIS PANEL, GENERAL Routine 03/21/2024 12:00 AM EDT Type 2 diabetes mellitus with hyperglycemia, with long-term current use of insulin ([facility]) ALBUMIN, RANDOM URINE W/CREATININE Routine 03/21/2024 12:00 AM EDT Type 2 diabetes mellitus with hyperglycemia, with long-term current use of insulin ([facility]) HIV ANTIBODY/ANTIGEN ([place] D[facility]) Routine 07/21/2023 10:25 AM EDT from Last 3 Months or Most Recently Relevant to Health Maintenance Results * (ABNORMAL) POCT HGB A1C (03/21/2025 11:32 AM EDT) Only the most recent of2 resultswithin the time period is included. Hemoglobin A1C 7.9(A) 4.0 - 6.0 % Blood 03/21/2025 11:3 2 AM EDT [facility] DIRECTOR AGRICULTURAL SERVICES POINT OF CARE TEST ENTER/EDIT ORDERABLES Final Result * POCT Glucose (03/21/2025 11:32 AM EDT) Only the most recent of2 resultswithin the time period is included. Glucose Blood, POC 121 60 - 200 mg/dL Blood Capillary blood specimen / Unknown 03/21/2025 11:32 AM EDT [facility] DIRECTOR AGRICULTURAL SERVICES POINT OF CARE TEST ENTER/EDIT ORDERABLES Final Result * Slide Review (02/27/2025 1:49 PM EDT) Slide Review VERIFIED [facility] 02/27/2025 1:49 PM EDT 02/27/2025 3:59 PM EDT [facility] LAB BLOOD ORDERABLES Final Re sult [facility] [address] [place] [address] [phone] * T-SPOT??.TB (02/27/2025 1:49 PM EDT) T Spot TB Negative Negative [facility] Comment:A negative test resu lt does not exclude the possibilityof exposure to or infection with Mycobacteriumtuberculosis (M. tuberculosis). Patients with recentexposure to TB infected individuals exhibiting anegative T-SPOT.TB result should be considered forretesting within 6 weeks or if other relevant clinicalsymptoms indicate. Results from T-SPOT.TB testing mustbe used in conjunction with each individual'sepidemiological history, current medical status,and results of other diagnostic evaluations.The T-SPOT.TB test is qualitative and results arereported as positive, borderline, or negative, giventhat the test controls perform as expected. In linewith the Centers for Disease Control and Prevention's2010 recommendation to report quantitative measurementsalongside the qualitative result, the laboratoryprovides spot counts for informational purposes only.The T-SPOT.TB test should not be interpreted as aquantitative test. TS PANEL A 0 [facility] TS PANEL B 0 [facility] Negative Control Passed [facility] Positive Control Passed [facility] Comment:For additional infor mation, please refer [email or web address]/faq/FYH628(This link is being provided for informational/educational purposes only.)THIS TEST WAS PERFORMED AT:[id number] [place] [address]UCOWSJWHERNÁN IVERSON MD,PHD 02/27/2025 1:49 PM EDT 02/27/2025 3:59 PM EDT [facility] DIRECTOR AGRICULTURAL SERVICES LAB BLOOD ORDERABLES Final Re sult [facility] [address] [place] [address] [phone] * (ABNORMAL) CBC auto differential (02/27/2025 1:49 PM EDT) White Blood Count 7.4 4.8 - 10.8 X10*3/uL [facility] Red Blood Count 4.50(L) 4.60 - 5.80 X10*6/uL [facility] Hemoglobin 11.2(L) 14.0 - 18.0 g/dl [facility] Hematocrit 35.7(L) 42.0 - 52.0 % [facility] Mean Corpuscular Volume 79.3(L) 80.0 - 98.0 fL [facility] Mean Corpuscular Hemoglobin 24.9(L) 27.0 - 33.0 pg [facility] Mean Corpuscular HGB Conc 31.4 31.0 - 36.0 g/dl [facility] Red Cell Distribution Width 16.7(H) 11.0 - 16.0 % [facility] Platelet Count 300 160 - 400 X10*3/uL [facility] Mean Platelet Volume 10.1 9.4 - 12.4 fL [facility] Neutrophils Percent Auto 71.6 45 - 73 % [facility] Imm Gran Pct Auto 0.3 0.0 - 0.4 % [facility] Lymphocytes Percent Auto 22.6 20 - 40 % [facility] Monocytes Percent Auto 4.9 2 - 11 % [facility] Eosinophils Percent Auto 0.1 0 - 4 % [facility] Basophils Percent Auto 0.5 0 - 2 % [facility] NRBC Pct Auto 0.0 0.0 - 0.2 /100WBC [facility] Neutrophils Absolute Auto 5.3 2.0 - 8.3 x10*3/uL [facility] Imm Gran Abs Auto 0.02 0.00 - 0.03 X10*3/uL [facility] Lymphocytes Absolute Auto 1.7 1.2 - 4.9 X10*3/uL [facility] Monocytes Absolute Auto 0.4 0.1 - 1.2 X10*3/uL [facility] Eosinophils Absolute Auto 0.0 0.0 - 0.4 X10*3/uL [facility] Basophils Absolute Auto 0.0 0.0 - 0.2 X10*3/uL [facility] NRBC Abs Auto 0.000 0.0 - 0.012 X10*3/uL [facility] Blood Venous blood specimen / Unknown 02/27/2025 1:49 PM EDT 02/27/2025 3:59 PM EDT [facility] LAB BLOOD ORDERABLES Edited R esult - Final Performing Organization Address City/[facility]/ZIP Co de Phone Number [facility] [address] [place] [phone] * (ABNORMAL) Iron And Total Iron Binding Capacity (02/27/2025 1:49 PM EDT) Iron 47 45 - 160 mcg/dL [facility] Comment:Slight Hemolysis.Int erpret result with caution. Total Iron Binding Capacity 399 228 - 428 mcg/dL [facility] Percent Iron Saturation 12(L) 15 - 50 % [facility] Unsaturated Iron Binding 352 ug/dL [facility] Blood Venous blood specimen / Unknown 02/27/2025 1:49 PM EDT 02/27/2025 3:59 PM EDT [facility] LAB BLOOD ORDERABLES Final Re sult [facility] [address] [place] [address] [phone] * (ABNORMAL) Alkaline phosphatase, isoenzymes (02/27/2025 1:49 PM EDT) Alkaline Phosphatase 296(A) 36 - 130 U/L [facility] Intestinal Isoenzymes 0(A) 1 - 24 % [facility] Bone Isoenzymes 25(A) 28 - 66 % [facility] Liver Isoenzymes 58 25 - 69 % [facility] Placental Isoenzymes 0 <=0 % [facility] Macrohepatic Isoenzymes 17(A) <=0 % [facility] Comment:Macrohepatic ALP(1) has been isolated in cases ofmetastatic carcinoma to the liver and has beensuggested as a diagnostic tool in identifying suchcases. It has also been isolated in patients withviral hepatitis, alcoholic cirrhosis and other liverdiseases. Data suggests that macrohepatic ALP ishighly correlated with the presence of livermetastases and that the presence of this isoenzymecould be predictive of the appearance of livermetastases. Macrohepatic ALP is seen occasionally inpatients free of any disease state.1. Yunior Javed. et al., Biomedicine, 31:74-77, 1978.THIS TEST WAS PERFORMED AT:[facility] [place] [address]OXHNMGAHERNÁN IVERSON MD,PHD Interpretation [facility] Blood Venous blood specimen / Unknown 02/27/2025 1:49 PM EDT 02/27/2025 3:59 PM EDT [facility] LAB BLOOD ORDERABLES Final Re sult [facility] [address] [place] [phone] * (ABNORMAL) Magnesium (02/27/2025 1:49 PM EDT) Magnesium 1.3(LL) 1.6 - 2.6 mg/dL [facility] Comment:Critical value for t est(s):MAGS Results called to and readback by: DR GARNICA Person calling: KYSF Date:[id number]:[id number] Blood Venous blood specimen / Unknown 02/27/2025 1:49 PM EDT 02/27/2025 3:59 PM EDT [facility] LAB BLOOD ORDERABLES Edited R esult - Final Performing Organization Address [facility] Co de Phone Number [facility] [address] [place] [phone] * (ABNORMAL) Gamma Glutamyl Transferase (GGT) (02/27/2025 1:49 PM EDT) Gamma Glutamyl Transpeptidase 446(H) 11 - 51 U/L [facility] Blood Venous blood specimen / Unknown 02/27/2025 1:49 PM EDT 02/27/2025 3:59 PM EDT [facility] LAB BLOOD ORDERABLES Final Re sult Performing Organization Address [facility] de Phone Number [facility] [address] [place] [phone] * Ferritin (02/27/2025 1:49 PM EDT) Ferritin 23 20 - 250 ng/mL [facility] Blood Venous blood specimen / Unknown 02/27/2025 1:49 PM EDT 02/27/2025 3:59 PM EDT [facility] LAB BLOOD ORDERABLES Final Re sult Performing Organization Address [facility] de Phone Number [facility] [address] [place] [phone] * Hepatic Function Panel (02/27/2025 1:49 PM EDT) Bilirubin, Direct <0.2 0.0 - 0.5 mg/dL [facility] Blood Venous blood specimen / Unknown 02/27/2025 1:49 PM EDT 02/27/2025 3:59 PM EDT [facility] LAB BLOOD ORDERABLES Final Re sult [facility] [address] [place] [phone] * (ABNORMAL) Comprehensive Metabolic Panel (02/27/2025 1:49 PM EDT) Pathologist [facility] Sodium 138 135 - 145 mmol/L [facility] Potassium 4.4 3.3 - 5.1 mmol/L [facility] Comment:Slight Hemolysis.Int erpret result with caution. Chloride 102 96 - 108 mmol/L [facility] Carbon Dioxide 28 22 - 29 mmol/L [facility] Anion Gap 12 12 - 20 [facility] Urea Nitrogen (BUN) 16 9 - 16 mg/dL [facility] Creatinine, Serum 1.19 0.5 - 1.4 mg/dL [facility] Estimated Glomerular Filt Rate >60 [facility] Comment:Chronic Kidney Disea se: Estimated GFR < 60 mL/min/1.40o2Mrucgh Kidney Disease: Estimated GFR < 15 mL/min/1.73m2 Glucose 192(H) 60 - 115 mg/dL [facility] Calcium 9.5 8.4 - 10.2 mg/dL [facility] Bilirubin, Total 0.2 0.0 - 1.0 mg/dL [facility] Aspartate Amino Transferase 72(H) 5 - 37 U/L [facility] Comment:Slight Hemolysis.Int erpret result with caution. Alanine Aminotransferase 69(H) 0 - 40 U/L [facility] Total Protein 7.7 6.5 - 8.0 g/dL [facility] Albumin Level 4.0 3.5 - 5.0 g/dL [facility] Alkaline Phosphatase 318(H) 39 - 117 U/L [facility] Blood Venous blood specimen / Unknown 02/27/2025 1:49 PM EDT 02/27/2025 3:59 PM EDT [facility] BLOOD ORDERABLES Final Re sult Performing Organization Address [facility] Co de Phone Number [facility] [address] [place] [phone] [phone] * (ABNORMAL) Lipid Panel, Standard (03/21/2024 9:21 AM EDT) Triglycerides 106 <150 mg/dL [facility] Comment:Desirable Triglyceri de: less than 150 mg/dLBorderline High Triglyceride 150-199 mg/dLHigh Triglyceride: 200-499 mg/dLVery High Triglyceride: greater than or equal to 5OO mg/dL Cholesterol 168 <200 mg/dL [facility] Comment:Desirable Cholestero l: less than 200 mg/dLBorderline High Cholesterol: 200-239 mg/dLHigh Cholesterol: greater than 239 mg/dL LDL Cholesterol Calculated 101(H) <100 mg/dL [facility] Comment:Desirable LDL: less than 100 mg/dLNear Optimal/Above Optimal LDL: 110- 129 mg/dLBorderline High LDL: 130-159 mg/dLHigh LDL: 160-189 mg/dLVery High LDL: greater than or equal to 190 mg/dL HDL Cholesterol 46 >40 mg/dL [facility] Comment:Desirable HDL: great er than 40 mg/dL Note: This HDL assay may give artificially low results in patients with liver disease. Blood Venous blood specimen / Unknown 03/21/2024 9:21 AM EDT 03/21/2024 11:19 AM EDT [facility] BLOOD ORDERABLES Final Re sult Performing Organization Address [facility] Co de Phone Number [facility] [address] [place] [phone] * Hepatitis Panel, General (03/21/2024 12:00 AM EDT) Hepatitis A IgM Nonreactive Nonreactive [facility] Comment:IgM antibodies to ESQUEDA V not detected; does not exclude earlyacute or recovered HAV infection. ~Hepatitis B Surface Antibody REACTIVE Nonreactive [facility] Comment:REACTIVE: > 11.99 mI U/mL Hepatitis B Core Antibody Nonreactive Nonreactive [facility] Hepatitis C Antibody Nonreactive Nonreactive [facility] Comment:Antibodies to HCV no t detected; does not exclude early acuteHCV infection. Hepatitis B Surface Ag Negative Negative [facility] Blood 03/21/2024 03/21/2024 [facility] LAB BLOOD ORDERABLES Final Re sult Performing Organization Address [facility] Co de Phone Number [facility] [address] [place] [phone] * (ABNORMAL) Albumin, Random Urine W/Creatinine (03/21/2024 12:00 AM EDT) Creatinine, Urine 129.74 mg/dL [facility] Microalbumin Urine 109.0 mg/L [facility] Microalbum Creatinine Ratio Ur 84.0(H) <30 ug/mg cr [facility] Comment:Albumin/Creatinine R atio Reference Ranges: Normal: < 30 ug/mg creatinine Microalbuminuria: 30 - 300 ug/mg creatinineClinical Albuminuria: > 300 ug/mg creatinine Urine 03/21/2024 03/21/2024 [facility] URINE ORDERABLES Final Re sult Performing Organization Address [facility] Co de Phone Number [facility] [address] [place] [phone] * HIV Ab/Ag (ALMA BILLINGSLEY) (07/21/2023 10:25 AM EDT) HIV AB/AG Nonreactive Nonreactive [facility] Comment:HIV-1 p24 Ag and/or HIV-1/HIV-2 Ab not detected.A test result that is nonreactive does not exclude thepossibility of exposure to or infection with HIV-1 and/orHIV-2. Nonreactive results in this assay for individualswith prior exposure to HIV-1 and/or HIV-2 may be due toantigen and antibody levels that are below the limit ofdetection of this assay.The [employer] HIV Ag/Ab Combo assay result andsupplemental assay results should be interpreted inconjunction with the patient's clinical presentation,history and other laboratory results. If the results areinconsistent with clinical evidence, additional testing issuggested to confirm the result. 07/21/2023 10:2 5 AM EDT 07/21/2023 11:22 AM EDT [facility] BLOOD ORDERABLES Final Re sult [facility] [address] [place] [phone] from Last 3 Months or Most Recently Relevant to Health Maintenance [place] [address] [place] [address] C3 Care Teams Applications Programmer Analyst Relationship Specialty Start Date End Date LovingstonChari, DIRECTOR AGRICULTURAL SERVICES [address] [place] [address] PCP - General Family Medicine 09/22/22 Gloria Garcia, Jody [address] [place] [address] Pharmacist Internal Medicine 02/12/25
--- OUTSIDE RECORDS SUMMARY | 2025-03-21 12:57 | XMS_ITS | Encounter Summary ---
Author Organization [employer] Address [address] [place] [address] [address] [place] [address] Care Team Providers Care Assistant Printer Floor Covering Name Role Phone Magali [facility] Primary Care Provider [phone] Gloria Garcia PharmD Unavailable [phone] Reason for Referral * Consultation (Routine) - Authorized Specialty Diagnoses / Procedures Referred By Contrebecca t Referred To Contact Pharmacy Diagnoses Type 1 diabetes mellitus with hyperglycemia (CMS/HCC) Gabriela Oliva MD [address] [place] [phone] Phone: tel: fax: Referral ID Status Reason Start Date Expiration Date Visits Requested Visits Authorized [id number] Authorized Consult and Treat 01/15/2025 01/15/2026 6 6 Encounter Details Date Type Department Care Team (Late st Contact Info) Description 01/15/2025 Orders Only [facility] MEDICINE [address] [place] [address] [phone] Gabriela Oliva MD [address] [place] [address] [phone] Type 1 diabetes mellitus with hyperglycemia (CMS/HCC) [...] Info) Description 04/13/2025 10:00 AM EDT Nutrition [facility] DIABETES/NUTRITION [address] [place] [address] [place] [address] 05/09/2025 2:30 PM EDT Office Visit [facility] MEDICINE [address] [place] [address] MunsterChari woodard FNP [address] [place] [address] 05/28/2025 3:00 PM EDT Medication Management [facility] MEDICINE [address] [facility] [place] [address] Gloria Garcia PharmD [address] [facility] [place] [address] Scheduled Referrals Name Type Priority Associated Diagnoses [...] documented as of this encounter Care Teams Assistant Printer Floor Covering Relationship Specialty Start Date End Date Chari De [place] [address] PCP - General Family Medicine 09/22/22 Gloria Garcia PharmD Joaqu[facility] [place] [address] Pharmacist Internal Medicine 02/12/25 documented as of this encounter
--- OUTSIDE RECORDS SUMMARY | 2025-03-21 12:57 | XMS_ITS ---
Author Organization [facility] Address [address] [place], [place] [phone] Care Team Providers Care Custodial Services Manager Name Role Phone [facility] Primary Care Provider Geeta Simmons [facility] Encounters Encounter Location Date Provider Diagnosis [facility] [address] [place] [phone] 07/21/2024 Geeta Mclain Plan Of Treatment No Information Progress Notes * Mihai PLASCENCIADOB:01/1985 (39 yo M)Acc No.[id number]:07/21/2024 Case Management Patient:?ANGEL DennyQUEHe COOPER Provider:Naomie Mclain :1985???Age:39 Y???Sex:Male Micah e:07/21/2024 Address:[address], [address] Pcp:[facility] Subjective: * Chief Complaints: * ??? * Medical History:? Objective: Assessment: Plan: * Treatment: * Images: Billing Information: * Visit Code:? * Procedure Codes:? Care Plan Details* * Electronic signature of Devon Mclain on 03/21/2025 at 12:57 PM EDT Sign off status: Pending * Provider:Naomie Mclain Date:? Generated for Brunilda alarcon/Hernan/Guillermo on:?03/21/2025 12:57 PM EDT
[2025-03-21 14:58] LABS: Alanine Aminotransferase 49 U/L (0-40); Albumin Level 4.5 g/dL (3.5-5.0); Alkaline Phosphatase 277 U/L (39-117); Anion Gap 14 (12-20); Aspartate Amino Transferase 45 U/L (5-37); Bilirubin Total 0.2 mg/dL (0.0-1.0); Blood Urea Nitrogen 18 mg/dL (9-16); Calcium 9.6 mg/dL (8.4-10.2); Carbon Dioxide 32 mmol/L (22-29); Chloride 101 mmol/L (96-108); Estimated Glomerular Filt Rate > 60; Glucose Random 102 mg/dL (60-115); Magnesium 1.5 mg/dL (1.6-2.6); Potassium 4.3 mmol/L (3.3-5.1); Sodium 143 mmol/L (135-145); Total Protein 8.2 g/dL (6.5-8.0)
[2025-03-22 03:46] LABS: Syphilis Screen Nonreactive (Nonreactive)
[2025-03-22 03:48] LABS: Hepatitis A Antibody IgM 0.11 Index (0-0.79); ~Hepatitis A Antibody IgM Nonreactive (Nonreactive)
[2025-03-22 04:20] LABS: HBS Num1 > 1000.00 mIU/mL (0-7.99); HBc Num1 0.05 S/CO (0.00-0.79); HBsAGNum1 0.45 S/CO (0.00-0.99); HIV AB/AG Nonreactive (Nonreactive); HIV Num 1 0.06 S/CO (0.00-0.99); Hepatitis B Core Antibody Nonreactive (Nonreactive); Hepatitis B Surface Antigen Negative (Negative); ~Hepatitis B Surface Antibody REACTIVE (Nonreactive); ~Hepatitis C Antibody Nonreactive (Nonreactive)
[2025-03-22 13:22] LABS: Alpha Fetoprotein 0.8 ng/mL (<6.1)
[2025-03-23 03:49] LABS: Hepatitis A Antibody IgG Nonreactive (Nonreactive); ~Hepatitis A Antibody IgG 0.89 S/CO (0.00-0.99)
== END 2025-03-21 11:38 | disposition home or self-care (01) ==
LOC: HO.HHCL 11:37
PROVIDERS: Visit Provider Registered Nurse
DX: F19.10 Other psychoactive substance abuse, uncomplicated (principal); E83.42 Hypomagnesemia; R74.8 Abnormal levels of other serum enzymes
CPT/HCPCS: 36415; 80053; 82105; 83735; 86704; 86706; 86708; 86709; 86780; 86803; 87340; 87389

== ENCOUNTER 2025-03-29 13:23 | Outpatient (REF) | payer MEDICAID, SELFPAY ==
--- NOTE | ~2025-03-29 | US_ITS ---
EXAMINATION: US ABDOMEN HISTORY: 39 y.o male with significant isolated alk phos and GGT elevation TECHNIQUE: Real-time grayscale ultrasound imaging of the abdomen was performed and images were reviewed. COMPARISON: Comparison is made with the prior examination dated 12/31/2021. FINDINGS: Liver: The right lobe of the liver measures 14.7 cm in size. The left lobe of the liver measures 10.2 cm in size. The liver demonstrates normal homogeneous echotexture. No focal mass or intrahepatic biliary ductal dilatation is identified. There is normal hepatopedal flow in the portal vein. Gallbladder and biliary tree: The gallbladder is unremarkable, without evidence of calculi, wall thickening, or pericholecystic fluid. There is no sonographic Barry sign. The common bile duct is normal in caliber measuring 2 mm. Kidneys: The right kidney measures 9.8 cm in length. The left kidney measures 9.8 cm in length. There is a 1.4 x 1.1 x 1.3 cm cyst in the interpolar region of the left kidney. The kidneys are otherwise unremarkable, without evidence of solid masses, hydronephrosis, or calculi. Pancreas: The pancreas is obscured by bowel gas. Spleen: The spleen is normal in size and contour, measuring 9.5 cm in length. Abdominal aorta and inferior vena cava: The visualized portions of the abdominal aorta and inferior vena cava are normal in caliber. There is no free fluid in the abdomen. US/US abdomen complete IMPRESSION: Mild hepatomegaly. 1.4 cm left renal cyst. Otherwise unremarkable abdominal ultrasound. Electronically signed by: Joaquin Masters MD 03/29/2025 02:28 PM EDT
--- OUTSIDE RECORDS SUMMARY | 2025-03-29 13:31 | XMS_ITS | Encounter Summary ---
Author Organization [employer] Address [address] [facility] 7t [place] [address] Care Team Providers Care School Commissioner Name Role Phone Hubbard [facility] Primary Care Provider [phone] Gloria Garcia PharmD Unavailable [phone] Reason for Visit * Reason Onset Date Comments Medication Question 04/15/2023 Encounter Details Date Type Department Care Team ([facility] st Contact Info) Description 04/15/2023 Telephone [facility] MEDICINE [address] [place], [place] [phone] Hubbard [facility] [address] [place] [address] Medication Question Social History Tobacco Use Types [...] - 04/15/2023 4:11 PM EDT T/C to [phone] for below message through [employer] id - [id number]. Pt. States he was prescribe freestyle rissa sensor from Dr. Fitzgerald Electrical Experimental Mechanic. Pt. Advised to give call to Electrical Experimental Mechanic. Pt. Verbally agreed and understood. [place] team advised to schedule TP apt. * Telephone Encounter - Sona Garcia - 04/15/2023 3:15 PM EDT Tc from patient requesting a med refill for a freestyle rissa sensor. Patient hasn't been seen withnew PCP. Gravel Hauler attempted to schedule TP appt but no available appt at this time. Please advise. documented in this encounter Plan of Treatment Upcoming Encounters Date Type Department Care Team (Late st Contact Info) Description 04/13/2025 10:00 AM EDT Nutrition [facility] DIABETES/NUTRITION [address] [place] [phone] [place] [address] 05/09/2025 2:30 PM EDT Office Visit [facility] MEDICINE [address] [place] [phone] Chari De Los Santos FNP [address] [place] [address] 05/28/2025 3:00 PM EDT Medication Management [facility] MEDICINE [address] [place] [phone] Gloria Garcia PharmD [address] [place] [phone] documented as of this encounter Visit Diagnoses Not on filedocumented in this encounter Care Teams School Commissioner Relationship Specialty Start Date End Date Chari De Los Santos FNP [address] [place] [phone] PCP - General Family Medicine 09/22/22 Gloria Garcia PharmD [address] [place] [phone] Pharmacist Internal Medicine 02/12/25 documented as of this encounter
== END 2025-03-29 13:24 | disposition home or self-care (01) ==
LOC: HO.US 13:23
PROVIDERS: PCP Registered Nurse; Visit Provider Registered Nurse
DX: R74.8 Abnormal levels of other serum enzymes (principal)
CPT/HCPCS: 76700

== ENCOUNTER → 2025-03-29 13:34 | Outpatient (BNV) | payer MEDICAID, SELFPAY | PROVIDERS: PCP Registered Nurse; Visit Provider Radiology Diagnostic Radiology | DX: N28.1 Cyst of kidney, acquired (principal) | CPT/HCPCS: 76700 ==